=== PATIENT | female | born 1975 | race Caucasian/White ===

== ENCOUNTER 2016-08-29 10:02 | Inpatient (IN) ==
--- NOTE | 2016-08-29 10:46 | Emergency Department Note ---
Disposition Clinical Impression: Pancreatitis Qualifiers: Chronicity: acute Pancreatitis type: unspecified pancreatitis type Acute pancreatitis complication: unspecified Qualified Code(s): K85.90 - Acute pancreatitis without necrosis or infection, unspecified DKA (diabetic ketoacidoses) Qualifiers: Diabetes mellitus type: type 2 Diabetes mellitus complication detail: without coma Qualified Code(s): E13.10 - Other specified diabetes mellitus with ketoacidosis without coma ARF (acute renal failure) Qualifiers: Acute renal failure type: unspecified Qualified Code(s): N17.9 - Acute kidney failure, unspecified Disposition: Admitted As Inpatient Condition: Fair Abdominal Pain HPI - General Chief Complaint: ED Abdominal Pain Stated Complaint: R flank pain Time Seen by Provider: 08/29/16 10:11 Source: patient Mode of arrival: ambulatory Limitations: no limitations Nursing Notes Reviewed: Yes Vital Signs Reviewed: Yes - History of Present Illness Pt Subjective Complaint: abdominal pain, flank pain Location: RUQ, R flank Pain Severity: severe Pain Scale: 10 Quality: sharp Radiation: LUQ Improves with: other (ice) Worsens with: eating Context: recent antibiotic use Associated symptoms: Reports: nausea, vomiting, diarrhea, hematochezia. Denies : fever, constipation, hematemesis, hematuria - Related Data Home Medications Medication Instructions Recorded Confirmed Budesonide/Formoterol 160/4.5 2 puff IH BIDR 08/19/15 08/29/16 [Symbicort 160/4.5] Ergocalciferol (VITAMIN D2) 50,000 unit PO TH 08/19/15 08/29/16 [Drisdol (50,000 Unit)] Fluticasone Propionate Nasal 1 spr NS DAILY 08/19/15 08/29/16 [Flonase] Montelukast [Singulair] 10 mg PO DAILY 08/19/15 08/29/16 Ranitidine HCl [Zantac] 300 mg PO DAILY 08/19/15 08/29/16 diazePAM [Valium] 10 mg PO TID PRN 08/19/15 08/29/16 lamoTRIgine [Lamictal] 200 mg PO HS 08/19/15 08/29/16 Cetirizine HCl [All Day Allergy] 10 mg PO DAILY 12/22/15 08/29/16 Ondansetron HCl [Zofran] 4 mg PO Q8H PRN 12/22/15 08/29/16 Atorvastatin [Lipitor] 10 mg PO HS 08/29/16 08/29/16 Doxepin HCl 100 mg PO HS 08/29/16 08/29/16 Gabapentin [Neurontin] 300 mg PO BID 08/29/16 08/29/16 HYDROcodone/Acet 7.5/325 mg [[place] 1 tab PO Q6H PRN 08/29/16 08/29/16 7.5-325 mg] Ipratropium/Albuterol Neb [Duoneb] 3 ml IH Q6HR PRN 08/29/16 08/29/16 metFORMIN [Glucophage] 500 mg PO BIDWM 08/29/16 08/29/16 Allergies Allergy/AdvReac Type Severity Reaction Status Date / Time morphine Allergy Unknown facial Verified 08/29/16 13:00 swelling, redness Penicillins Allergy Unknown Unknown Verified 08/29/16 13:00 pregabalin [From Lyrica] Allergy Unknown Blindness, Verified 08/29/16 13:00 Difficulty walking trazodone Allergy Unknown Tachycardia Verified 08/29/16 13:00 aspirin AdvReac Unknown nausea and Verified 08/29/16 13:00 vomiting sumatriptan [From Imitrex] AdvReac Unknown Disoriented Verified 08/29/16 13:00 All systems ED: reviewed and negative except as stated. Constitutional: Reports: fever Cardiovascular: Denies: chest pain Respiratory: Reports: wheezes (hx of asthma). 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 Absent: wheezes - Cardiovascular Cardiovascular exam: Present: regular rate, normal rhythm - Abdominal Exam Abdominal exam: Present: tenderness. Absent: distention, ascites Abdominal tenderness: Present: RUQ, LUQ - Rectal Exam Rectal exam: Present: deferred - Extremities Exam Extremities exam: Present: normal inspection. Absent: pedal edema - Back Exam Back exam: Present: CVA tenderness (R). Absent: rashes - Neurological Exam Neurological exam: Present: alert, CN II-XII intact - Psychiatric Psychiatric exam: Present: normal affect - Skin Skin exam: Present: warm, dry, intact, normal color Course Course Narrative: Patient is a 40 y/o female with a pmh of DM, kidney stones, and a Nessin procedure (2009)present to the ER after 3 days of N/V and RUQ/R flank pain that radiates to the LUQ. Labs: CBC, BMP, Hepatic function test, lipase, and UA were drawn. CT of abd without contrast was done and showed very mild stranding by the pancreas that could be related to pancreatitis, duodenitis or underlying liver dysfunction. Liver is enlarged and compatible with hepatic steatosis. Pt given 1mg of Dilaudid as she says she can tolerate it despite having a morphine allergy. Glucose was elevated in the 800s and IV fluid bolus given and Insulin drip initiated. Vital Signs Temperature 98.7 F 08/29/16 10:04 Pulse Rate 74 08/29/16 10:04 Respiratory Rate 16 08/29/16 10:04 Blood Pressure 117/81 08/29/16 10:04 O2 Sat by Pulse Oximetry 97 08/29/16 10:04 Temperature 97.7 F 08/29/16 17:25 Pulse Rate 116 08/29/16 19:19 Respiratory Rate 16 08/29/16 19:00 Blood Pressure 131/96 08/29/16 19:00 O2 Sat by Pulse Oximetry 94 08/29/16 19:00 Oxygen Delivery Oxygen Delivery Nasal Cannula Abdominal Pain - [facility] Narrative Medical decision making narrative: Patient's glucose was 849, given IV fluids and an insulin drip. Will admit for DKA/HHS. Concerning her abdominal pain, patient's CT of abdomen showed very mild stranding near the pancreas and liver enlargement most likely due to hepatic steatosis. Lipase was not suggestive of pancreatitis. US of the gallbladder was ordered to r/o acute cholecystitis. - Differential Diagnosis Differential Diagnosis: Likely: acute appendicitis, calculus of kidney, other ( DKA, HHS) - Medical Records Medical records reviewed: Yes I reviewed the patient's medical records. - Lab Data Lab results reviewed: Yes I reviewed the patient's lab results. Result diagrams: 08/29/16 11:12 08/29/16 11:12 Lab Results 08/29/16 08/29/16 08/29/16 Range/Units 10:17 11:12 11:12 WBC 16.6 H (4.3-11.1) K/mcL RBC 5.18 H (3.82-4.97) M/mcL Hgb 15.7 H (11.5-15.4) g/dL Hct 45.8 H (35.3-44.9) % MCV 88.4 (83.0-100.0) fL MCH 30.3 (28.0-33.3) pg MCHC 34.3 (31.6-35.5) g/dL RDW 13.4 (11.5-14.5) % Plt Count 389 (140-400) K/mcL MPV 10.2 (9.4-12.4) fL Immature Gran % 1.1 (0-4) % Seg Neutrophils % 58.4 % Lymphocytes % 33.3 % Monocytes % 6.5 % Eosinophils % 0.3 % Basophils % 0.4 % Neutrophils # 9.7 H (1.6-8.9) K/mcL Lymphocytes # 5.5 H (0.6-4.6) K/mcL Monocytes # 1.1 (0.0-1.3) K/mcL Eosinophils # 0.1 (0.0-0.6) K/mcL Basophils # 0.1 (0.0-0.2) K/mcL Sodium 136 (136-145) mEq/L Potassium 4.5 (3.5-4.5) mEq/L Chloride 93 L (98-109) mEq/L Carbon Dioxide 23 (19-29) mEq/L BUN 17 (7-20) mg/dL Creatinine 1.68 H (0.57-1.11) mg/dL Est GFR ( Amer) 41 L (> 60) Est GFR (Non-Af Amer) 34 L (> 60) BUN/Creatinine Ratio 10 (6-26) Glucose 849 H* (70-99) mg/dL POC Glucose (58-89) Calculated Osmolality 325 H (280-300) Calcium 10.9 H (8.6-10.8) mg/dL Total Bilirubin 0.5 (0.2-1.2) mg/dL Direct Bilirubin 0.1 (0.0-0.5) mg/dL Indirect Bilirubin 0.4 (0.0-1.2) mg/dL AST 96 H (5-34) Units/L ALT 120 H (0-55) Units/L Alkaline Phosphatase 168 H (38-126) Units/L Serum Total Protein 8.6 H (6.0-8.3) g/dL Albumin 4.2 (3.5-5.0) g/dL Globulin 4.4 H (2.4-3.5) g/dL Albumin/Globulin Ratio 1.0 L (1.1-2.2) Lipase 321 H (8-78) Units/L Beta-Hydroxybutyric Acd (0.02-0.27) mmol/L Urine Color Yellow (Yellow) Urine Clarity Clear (Clear) Urine pH 6.0 (5.0-8.0) pH Units Ur Specific [place] > 1.030 H (1.010-1.025) Urine Protein Negative (Neg-Trace) mg/dL Urine Glucose (UA) >=1000 H (Normal) mg/dL Urine Ketones Trace H (Negative) mg/dL Urine Blood Negative (Negative) Urine Nitrite Negative (Negative) Urine Bilirubin Negative (Negative) Urine Urobilinogen Normal (Normal) mg/dL Ur Leukocyte Esterase Negative (Negative) Ur Culture Indicated? NO (NO) 08/29/16 08/29/16 08/29/16 Range/Units 11:15 12:47 13:17 WBC (4.3-11.1) K/mcL RBC (3.82-4.97) M/mcL Hgb (11.5-15.4) g/dL Hct (35.3-44.9) % MCV (83.0-100.0) fL MCH (28.0-33.3) pg MCHC (31.6-35.5) g/dL RDW (11.5-14.5) % Plt Count (140-400) K/mcL MPV (9.4-12.4) fL Immature Gran % (0-4) % Seg Neutrophils % % Lymphocytes % % Monocytes % % Eosinophils % % Basophils % % Neutrophils # (1.6-8.9) K/mcL Lymphocytes # (0.6-4.6) K/mcL Monocytes # (0.0-1.3) K/mcL Eosinophils # (0.0-0.6) K/mcL Basophils # (0.0-0.2) K/mcL Sodium (136-145) mEq/L Potassium (3.5-4.5) mEq/L Chloride (98-109) mEq/L Carbon Dioxide (19-29) mEq/L BUN (7-20) mg/dL Creatinine (0.57-1.11) mg/dL Est GFR ( Amer) (> 60) Est GFR (Non-Af Amer) (> 60) BUN/Creatinine Ratio (6-26) Glucose (70-99) mg/dL POC Glucose > 600 H* 540 H* (58-89) Calculated Osmolality (280-300) Calcium (8.6-10.8) mg/dL Total Bilirubin (0.2-1.2) mg/dL Direct Bilirubin (0.0-0.5) mg/dL Indirect Bilirubin (0.0-1.2) mg/dL AST (5-34) Units/L ALT (0-55) Units/L Alkaline Phosphatase (38-126) Units/L Serum Total Protein (6.0-8.3) g/dL Albumin (3.5-5.0) g/dL Globulin (2.4-3.5) g/dL Albumin/Globulin Ratio (1.1-2.2) Lipase (8-78) Units/L Beta-Hydroxybutyric Acd > 2.00 H (0.02-0.27) mmol/L Urine Color (Yellow) Urine Clarity (Clear) Urine pH (5.0-8.0) pH Units Ur Specific [place] (1.010-1.025) Urine Protein (Neg-Trace) mg/dL Urine Glucose (UA) (Normal) mg/dL Urine Ketones (Negative) mg/dL Urine Blood (Negative) Urine Nitrite (Negative) Urine Bilirubin (Negative) Urine Urobilinogen (Normal) mg/dL Ur Leukocyte Esterase (Negative) Ur Culture Indicated? (NO) 08/29/16 08/29/16 Range/Units 14:00 16:39 WBC (4.3-11.1) K/mcL RBC (3.82-4.97) M/mcL Hgb (11.5-15.4) g/dL Hct (35.3-44.9) % MCV (83.0-100.0) fL MCH (28.0-33.3) pg MCHC (31.6-35.5) g/dL RDW (11.5-14.5) % Plt Count (140-400) K/mcL MPV (9.4-12.4) fL Immature Gran % (0-4) % Seg Neutrophils % % Lymphocytes % % Monocytes % % Eosinophils % % Basophils % % Neutrophils # (1.6-8.9) K/mcL Lymphocytes # (0.6-4.6) K/mcL Monocytes # (0.0-1.3) K/mcL Eosinophils # (0.0-0.6) K/mcL Basophils # (0.0-0.2) K/mcL Sodium (136-145) mEq/L Potassium (3.5-4.5) mEq/L Chloride (98-109) mEq/L Carbon Dioxide (19-29) mEq/L BUN (7-20) mg/dL Creatinine (0.57-1.11) mg/dL Est GFR ( Amer) (> 60) Est GFR (Non-Af Amer) (> 60) BUN/Creatinine Ratio (6-26) Glucose (70-99) mg/dL POC Glucose 460 H* 491 H* (58-89) Calculated Osmolality (280-300) Calcium (8.6-10.8) mg/dL Total Bilirubin (0.2-1.2) mg/dL Direct Bilirubin (0.0-0.5) mg/dL Indirect Bilirubin (0.0-1.2) mg/dL AST (5-34) Units/L ALT (0-55) Units/L Alkaline Phosphatase (38-126) Units/L Serum Total Protein (6.0-8.3) g/dL Albumin (3.5-5.0) g/dL Globulin (2.4-3.5) g/dL Albumin/Globulin Ratio (1.1-2.2) Lipase (8-78) Units/L Beta-Hydroxybutyric Acd (0.02-0.27) mmol/L Urine Color (Yellow) Urine Clarity (Clear) Urine pH (5.0-8.0) pH Units Ur Specific [place] (1.010-1.025) Urine Protein (Neg-Trace) mg/dL Urine Glucose (UA) (Normal) mg/dL Urine Ketones (Negative) mg/dL Urine Blood (Negative) Urine Nitrite (Negative) Urine Bilirubin (Negative) Urine Urobilinogen (Normal) mg/dL Ur Leukocyte Esterase (Negative) Ur Culture Indicated? (NO) - Radiology Data Radiology results reviewed: Yes I reviewed the patient's radiology results. - EKG Data EKG attestation: Yes I reviewed and interpreted this EKG. Critical Care Time Critical Care Time: Yes Total Critical Care Time: 65 Attestation: The high probability of a clinically significant, sudden or life threatening deterioration of the [cardiovascular] system(s) required my full and direct attention, intervention and personal management. The aggregate critical care time was [] minutes. This time is in addition to time spent performing reported procedures but includes the following: [x] Data Review and interpretation [x] Patient assessment and monitoring of vital signs [x] Documentation [x] Medication orders and management
[2016-08-29 11:06] LABS: Bilirubin,Urine Negative (Negative); Blood,Urine Negative (Negative); Clarity,Urine Clear (Clear); Color,Urine Yellow (Yellow); Glucose,Urine (UA) >=1000 mg/dL (Normal); Ketones,Urine Trace mg/dL (Negative); Leukocyte Esterase,Urine Negative (Negative); Nitrite,Urine Negative (Negative); Protein,Urine Negative (Neg-Trace); Specific Gravity,Urine > 1.030 (1.010-1.025); Urobilinogen,Urine Normal (Normal)
[2016-08-29] MEDS ORDERED: *HR* HYDROmorphone (PF) 1 MG/ML SYRINGE IVP ONE ×3 (11:11→16:30)
[2016-08-29 11:17] LABS: Basophils # 0.1 K/mcL (0.0-0.2); Basophils % 0.4 %; Eosinophils # 0.1 K/mcL (0.0-0.6); Eosinophils % 0.3 %; Hematocrit 45.8 % (35.3-44.9); Hemoglobin 15.7 g/dL (11.5-15.4); Immature Granulocytes % 1.1 % (0-4); Lymphocytes # 5.5 K/mcL (0.6-4.6); Lymphocytes % 33.3 %; Mean Corpuscular HGB Conc 34.3 g/dL (31.6-35.5); Mean Corpuscular Hemoglobin 30.3 pg (28.0-33.3); Mean Corpuscular Volume 88.4 fL (83.0-100.0); Mean Platelet Volume 10.2 fL (9.4-12.4); Monocytes # 1.1 K/mcL (0.0-1.3); Monocytes % 6.5 %; Neutrophils # 9.7 K/mcL (1.6-8.9); Platelet Count 389 K/mcL (140-400); Red Blood Count 5.18 M/mcL (3.82-4.97); Red Cell Distribution Width 13.4 % (11.5-14.5); Segmented Neutrophils % 58.4 %
[2016-08-29 11:39] LABS: Albumin 4.2 g/dL (3.5-5.0); Bilirubin,Direct 0.1 mg/dL (0.0-0.5); Bilirubin,Indirect 0.4 mg/dL (0.0-1.2); Bilirubin,Total 0.5 mg/dL (0.2-1.2); Calcium 10.9 mg/dL (8.6-10.8); Globulin 4.4 g/dL (2.4-3.5); Potassium 4.5 mEq/L (3.5-4.5); Total Protein 8.6 g/dL (6.0-8.3)
[2016-08-29] MEDS: Insulin Human Regular 10 UNIT in 0.9 % Sodium Chloride 10 ML IV ONE ×2 (12:34→18:18)
[2016-08-29] MEDS: 0.9 % Sodium Chloride 1,000 ML IVC ONE ×2 (12:34→18:18)
[2016-08-29] MEDS ORDERED: Ondansetron 4 MG/2 ML VIAL IVP ONE ×2 (14:36→16:30)
[2016-08-29] MEDS ORDERED: *HR* Dextrose 50 % in Water (Syg) 50 ML SYRINGE IVP PRN ×2 (16:23→18:47)
[2016-08-29] MEDS ORDERED: Insulin Human Regular 100 UNIT in 0.9 % Sodium Chloride 100 ML IVC SCH ×2 (16:30→16:49)
[2016-08-29] MEDS ORDERED: 0.9 % Sodium Chloride 1,000 ML IVC ONE (16:30)
[2016-08-29] MEDS ORDERED: 0.9 % Sodium Chloride w KCl 20 MEQ/1,000 ML MLS IVC SCH (16:45)
[2016-08-29] MEDS: 0.9 % Sodium Chloride w KCl 20 MEQ/1,000 ML MLS IVC SCH (17:47)
[2016-08-29] MEDS ORDERED: Naloxone 0.4 MG/ML INJ IVP PRN (18:44)
[2016-08-29] MEDS ORDERED: D5% in 0.45% NACL 1,000 ML IVC PRN (18:47)
[2016-08-29] MEDS ORDERED: Insulin Regular, Human 100 UNIT/ML IV PRN (18:47)
[2016-08-29] MEDS ORDERED: Ondansetron ODT 4 MG TAB.RAPDIS PO PRN (18:52)
[2016-08-29] MEDS ORDERED: diazePAM 5 MG TABLET PO PRN (18:52)
--- NOTE | 2016-08-29 18:58 | Internal Med History&Physical ---
Date of Encounter: 08/29/16 Time of Encounter: 19:00 Assessment and Plan (1) Pancreatitis Current visit: Yes Status: Acute Acute pancreatitis, possibly related to biliary stone, as bile duct enlarged on RUQ US. - Consult GI for assistance - Aggressive IV fluid resuscitation - NPO - IV Pain medications - Follow CMP - Check lipid panel Qualifiers: Chronicity: acute Pancreatitis type: other Acute pancreatitis complication: no infection or necrosis Qualified Code(s): K85.80 - Other acute pancreatitis without necrosis or infection (2) DKA (diabetic ketoacidoses) Current visit: Yes Status: Acute DKA/HHS, HCO3- normal, making HHS more likely. Secondary to steroids and inflammatory state of pancreatitis. - DKA/HHS protocol initiated, will monitor K carefully and replace sparingly as patient with JOSEPHINE and not significantly acidotic on presentation - NPO - Insulin gtt Qualifiers: Diabetes mellitus type: type 2 Diabetes mellitus complication detail: without coma Qualified Code(s): E13.10 - Other specified diabetes mellitus with ketoacidosis without coma (3) JOSEPHINE (acute kidney injury) Current visit: Yes Status: Acute JOSEPHINE with creatinine 1.68 up from baseline of 0.74. Likely prerenal etiology given patient's marked volume depletion on physical exam in setting of acute pancreatitis. - Aggressive IV fluid resuscitation - Monitor creatinine for improvement - Avoid nephrotoxins (4) Elevated transaminase level Current visit: Yes Status: Acute History of DIEGO, transaminases have been elevated in the past but to a lesser degree. Bilirubin normal - Follow CMP in AM to trend LFTs (5) Asthma Current visit: Yes Status: Acute Currently lung exam is normal - Continue home inhaler regimen - PRN duonebs Qualifiers: Asthma severity: unspecified severity Asthma complication type: uncomplicated Qualified Code(s): J45.909 - Unspecified asthma, uncomplicated Internal Medicine - H&P: HPI Chief complaint: Upper abdominal pain, nausea, vomiting Admitted From: Emergency Dept Plans for Post Hospital Care: Home History of present illness: Ms. Conde is a 40 year old female with history of asthma, HLD, recently diagnosed DM2, who presented to the ED this afternoon for complaint of abdominal pain, nausea and vomiting for the past 4 days. She states that she has had sinusitis and bronchitis, being treated with an antibiotic (unsure of which one) and PO steroids for the past 4-5 days. She has been unable to tolerate any PO intake, as she has been vomiting, and has had right upper quadrant pain which radiates across to the left upper quadrant. She has not had pain like this before. She denies chest pain or shortness of breath. She has been coughing up yellowish sputum. She has been having diarrhea. Denies blood in her vomit. States no significant recent blood in her stool, but has intermittently had blood in her stool since she had a Dennis Fundoplication - has had EGDs and colonoscopies which she was told were fine in the past. In the ED today she was found to have BG 850 with anion gap of 20, positive beta hydroxybutarate. CT abdomen/pelvis concerning for stranding along pancreas/ duodenum and lipase elevated at 350. RUQ US with mild dilation of common bile duct, normal bilirubin, elevated transaminases and alk phos. She was started on IV fluids, insulin gtt, and admitted to ICU for further management. Past Med Surg Social Fam HX - Past Medical History Medical history: asthma, GERD, hyperlipidemia Psychiatric history: anxiety, depression - Past Surgical History Surgical History: hysterectomy, orthopedic, other, other (Dennis fundoplication , EGD/colonoscopy 12/2015 without abnormalities) - Social History Smoking Status: Current every day smoker Smokeless Tobacco Status: No Alcohol use: rarely Drug use: none - Family History Mother Age: 57 Living Status: Still Living Father Age: 60 Living Status: Still Living Internal Medicine - H&P: Meds Budesonide/Formoterol 160/4.5 [Symbicort 160/4.5] 2 puff IH BIDR 08/19/15 [ History] Ergocalciferol (VITAMIN D2) [Drisdol (50,000 Unit)] 50,000 unit PO TH 08/19/15 [ History] Fluticasone Propionate Nasal [Flonase] 1 spr NS DAILY 08/19/15 [History] Montelukast [Singulair] 10 mg PO DAILY 08/19/15 [History] Ranitidine HCl [Zantac] 300 mg PO DAILY 08/19/15 [History] diazePAM [Valium] 10 mg PO TID PRN 08/19/15 [History] lamoTRIgine [Lamictal] 200 mg PO HS 08/19/15 [History] Cetirizine HCl [All Day Allergy] 10 mg PO DAILY 12/22/15 [History] Ondansetron HCl [Zofran] 4 mg PO Q8H PRN 12/22/15 [History] Atorvastatin [Lipitor] 10 mg PO HS 08/29/16 [History] Doxepin HCl 100 mg PO HS 08/29/16 [History] Gabapentin [Neurontin] 300 mg PO BID 08/29/16 [History] HYDROcodone/Acet 7.5/325 mg [[place] 7.5-325 mg] 1 tab PO Q6H PRN 08/29/16 [ History] Ipratropium/Albuterol Neb [Duoneb] 3 ml IH Q6HR PRN 08/29/16 [History] metFORMIN [Glucophage] 500 mg PO BIDWM 08/29/16 [History] Allergies morphine Allergy (Unknown, Verified 08/29/16 13:00) facial swelling, redness Penicillins Allergy (Unknown, Verified 08/29/16 13:00) Unknown patient states unknown childhood reaction pregabalin [From Lyrica] Allergy (Unknown, Verified 08/29/16 13:00) Blindness, Difficulty walking trazodone Allergy (Unknown, Verified 08/29/16 13:00) Tachycardia aspirin Adverse Reaction (Unknown, Verified 08/29/16 13:00) nausea and vomiting sumatriptan [From Imitrex] Adverse Reaction (Unknown, Verified 08/29/16 13:00) Disoriented All Systems PM: A 10-system review of systems was performed and is negative for pertinent findings except as documented above in the HPI. - Constitutional Vitals: Temp Pulse Resp BP Pulse Ox 97.7 F 112 16 117/90 94 08/29/16 17:25 08/29/16 18:00 08/29/16 18:00 08/29/16 18:00 08/29/16 18:00 General appearance: Present: A&O X 3, no acute distress - Head Head exam: Present: atraumatic - Eye Eye exam: Present: EOMI, sclera anicteric - ENT ENT exam: Present: mucous membranes dry - Neck Neck exam general surgery: Present: supple - Respiratory Respiratory exam: Present: CTAB - Cardiovascular Cardiovascular exam: Present: tachycardia. Absent: diastolic murmur, gallop, rubs, systolic murmur - GI/Abdominal GI/Abdominal exam: Present: soft Additional comments: Tender right upper quadrant and epigastric area. No rebound or guarding. Bowel sounds normal - Extremities Exam Extremities exam: Absent: pedal edema - Neurological Exam Neurological exam: Present: no focal deficits - Psychiatric Psychiatric exam: Present: normal affect, normal mood - Skin Skin exam: Absent: rash Internal Med - H&P Results - Labs CBC & Chem 7: 08/29/16 11:12 08/29/16 11:12
[2016-08-29] MEDS: 0.9 % Sodium Chloride 1,000 ML IVC SCH ×3 (19:24→23:08)
[2016-08-29] MEDS: lamoTRIgine 100 MG TABLET PO SCH (20:02)
[2016-08-29] MEDS: Gabapentin 300 MG CAPSULE PO SCH (20:02)
[2016-08-29 20:09] LABS: BUN/Creatinine Ratio 14 (6-26); Blood Urea Nitrogen 14 mg/dL (7-20); Calcium 9.5 mg/dL (8.6-10.8); Carbon Dioxide 29 mEq/L (19-29); Glucose 194 mg/dL (70-99); Osmolality,Calculated 318 (280-300); eGFR For African Americans > 60 (> 60); eGFR For Non-African Americans 59 (> 60)
[2016-08-29 20:10] LABS: Chol/HDL Ratio 5.8 (0-4.9); Cholesterol 214 mg/dL (< 200); HDL Cholesterol 37 mg/dL (40-59); Triglycerides 675 mg/dL (< 150)
[2016-08-29 20:31] LABS: Chloride 109 mEq/L (98-109); Potassium 3.2 mEq/L (3.5-4.5); Sodium 151 mEq/L (136-145)
[2016-08-29] MEDS: Insulin Human Regular 100 UNIT in 0.9 % Sodium Chloride 100 ML IVC SCH (20:54)
[2016-08-29] MEDS: *HR* HYDROmorphone (PF) 1 MG/ML SYRINGE IVP PRN (21:45)
[2016-08-29] MEDS ORDERED: Ipratropium/Albuterol Neb 3 ML IH PRN (22:00)
[2016-08-29] MEDS: Budesonide/Formoterol 160/4.5 MDI IH SCH (22:16)
[2016-08-30 00:14] LABS: BUN/Creatinine Ratio 13 (6-26); Blood Urea Nitrogen 12 mg/dL (7-20); Calcium 8.8 mg/dL (8.6-10.8); Carbon Dioxide 31 mEq/L (19-29); Chloride 110 mEq/L (98-109); Glucose 105 mg/dL (70-99); Osmolality,Calculated 308 (280-300); Potassium 3.2 mEq/L (3.5-4.5); Sodium 149 mEq/L (136-145); eGFR For African Americans > 60 (> 60); eGFR For Non-African Americans > 60 (> 60)
[2016-08-30] MEDS: 0.9 % Sodium Chloride w KCl 20 MEQ/1,000 ML MLS IVC SCH ×3 (00:18→08:28)
[2016-08-30] MEDS: D5% in 0.45% NACL w KCl 20 MEQ/1,000 ML MLS IVC PRN ×2 (00:19→04:28)
[2016-08-30] MEDS: 0.9 % Sodium Chloride 1,000 ML IVC SCH ×2 (03:12→05:17)
[2016-08-30] MEDS: Insulin Human Regular 100 UNIT in 0.9 % Sodium Chloride 100 ML IVC SCH (03:13)
[2016-08-30 04:55] LABS: Basophils # 0.1 K/mcL (0.0-0.2); Basophils % 0.4 %; Eosinophils # 0.1 K/mcL (0.0-0.6); Eosinophils % 0.4 %; Hematocrit 43.3 % (35.3-44.9); Immature Granulocytes % 1.1 % (0-4); Lymphocytes # 4.5 K/mcL (0.6-4.6); Lymphocytes % 28.1 %; Mean Corpuscular HGB Conc 31.9 g/dL (31.6-35.5); Mean Corpuscular Hemoglobin 29.6 pg (28.0-33.3); Mean Corpuscular Volume 92.7 fL (83.0-100.0); Mean Platelet Volume 9.5 fL (9.4-12.4); Monocytes % 6.4 %; Neutrophils # 10.3 K/mcL (1.6-8.9); Platelet Count 338 K/mcL (140-400); Red Blood Count 4.67 M/mcL (3.82-4.97); Red Cell Distribution Width 13.8 % (11.5-14.5); Segmented Neutrophils % 63.6 %
[2016-08-30 04:56] LABS: Hemoglobin 13.8 g/dL (11.5-15.4)
[2016-08-30] MEDS: *HR* HYDROmorphone (PF) 1 MG/ML SYRINGE IVP PRN ×2 (05:03→08:35)
[2016-08-30 05:05] LABS: Alanine Aminotransferase 82 Units/L (0-55); Albumin 3.4 g/dL (3.5-5.0); Albumin/Globulin Ratio 0.9 (1.1-2.2); Alkaline Phosphatase 124 Units/L (38-126); BUN/Creatinine Ratio 13 (6-26); Bilirubin,Total 0.2 mg/dL (0.2-1.2); Blood Urea Nitrogen 11 mg/dL (7-20); Calcium 8.4 mg/dL (8.6-10.8); Carbon Dioxide 26 mEq/L (19-29); Chloride 110 mEq/L (98-109); Globulin 3.7 g/dL (2.4-3.5); Glucose 165 mg/dL (70-99); Osmolality,Calculated 307 (280-300); Phosphorous 2.3 mg/dL (2.3-4.7); Potassium 3.7 mEq/L (3.5-4.5); Sodium 147 mEq/L (136-145); Total Protein 7.1 g/dL (6.0-8.3); eGFR For African Americans > 60 (> 60); eGFR For Non-African Americans > 60 (> 60)
[2016-08-30 05:08] LABS: Aspartate Amino Transferase 51 Units/L (5-34); Magnesium 2.1 mg/dL (1.6-2.6)
[2016-08-30] MEDS: Budesonide/Formoterol 160/4.5 MDI IH SCH ×2 (07:51→22:37)
[2016-08-30] MEDS: Gabapentin 300 MG CAPSULE PO SCH ×2 (08:28→19:21)
[2016-08-30] MEDS: Loratadine 10 MG TABLET PO SCH (08:28)
[2016-08-30] MEDS: Famotidine 20 MG TABLET PO SCH (08:29)
[2016-08-30] MEDS ORDERED: D5% in Water 1,000 ML IVC PRN (08:32)
[2016-08-30] MEDS: Fluticasone Propionate Nasal 50 MCG/SPRAY BOTTLE NS SCH (08:32)
[2016-08-30 08:45] LABS: BUN/Creatinine Ratio 12 (6-26); Blood Urea Nitrogen 9 mg/dL (7-20); Calcium 8.1 mg/dL (8.6-10.8); Carbon Dioxide 27 mEq/L (19-29); Chloride 110 mEq/L (98-109); Glucose 151 mg/dL (70-99); Osmolality,Calculated 300 (280-300); Potassium 3.7 mEq/L (3.5-4.5); Sodium 144 mEq/L (136-145); eGFR For African Americans > 60 (> 60); eGFR For Non-African Americans > 60 (> 60)
[2016-08-30] MEDS ORDERED: Insulin DETEMIR 100 UNIT/ML X5UNITS SQ SCH ×2 (09:00→21:00)
[2016-08-30 10:17] LABS: Lipase 905 Units/L (8-78)
[2016-08-30] MEDS: Insulin LISPRO 300 UNITS/3 ML VIAL SQ SCH ×4 (12:00→23:17)
[2016-08-30] MEDS: *HR* Heparin 5,000 UNIT/ML VIAL SQ SCH (17:09)
[2016-08-30] MEDS: *HR* HYDROcodone/Acet 7.5/325 mg TABLET PO PRN (17:17)
--- NOTE | 2016-08-30 17:53 | Internal Med Progress Note ---
Date of Encounter: 08/30/16 Time of Encounter: 09:00 - Assessment and plan (1) Leucocytosis Current Visit: No Status: Chronic Assessment and plan: Patient has tachycardia and leukocytosis. Meet criteria of SIRS. We will empirically add antibiotic for possible intra-abdominal infection. Qualifiers: Leukocytosis type: other Qualified Code(s): D72.828 - Other elevated white blood cell count (2) JOSEPHINE (acute kidney injury) Current Visit: Yes Status: Acute Assessment and plan: Resolved after IV fluid. (3) Pancreatitis Current Visit: Yes Status: Acute Assessment and plan: We will continue nothing by mouth, IV fluid. Follow-up lipase level. - Old US ABDOMINAL LIMIT to rule out gallstone. Bilirubin is within normal limit Qualifiers: Chronicity: acute Pancreatitis type: other Acute pancreatitis complication: no infection or necrosis Qualified Code(s): K85.80 - Other acute pancreatitis without necrosis or infection (4) DKA (diabetic ketoacidoses) Current Visit: Yes Status: Acute Assessment and plan: Resolved. We will continue basal and sliding scale insulin for glucose control. Patient may need long-term insulin use upon discharge Qualifiers: Diabetes mellitus type: type 2 Diabetes mellitus complication detail: without coma Qualified Code(s): E13.10 - Other specified diabetes mellitus with ketoacidosis without coma (5) Elevated transaminase level Current Visit: Yes Status: Acute Assessment and plan: Possibly due to pancreatitis. Improved today. (6) Asthma Current Visit: Yes Status: Acute Assessment and plan: Stable. No wheezing. Qualifiers: Asthma severity: unspecified severity Asthma complication type: uncomplicated Qualified Code(s): J45.909 - Unspecified asthma, uncomplicated (7) DVT prophylaxis Current Visit: Yes Status: Acute Assessment and plan: Heparin subcutaneously - Time Spent With Patient 25 - 35 minutes - Subjective Interval history: Patient is a 40-year-old female admitted for DKA, acute pancreatitis, possible duodenitis. I saw and examined the patient today. Patient is still weak, complaint abdominal pain, no nausea or vomiting today. AG closed, insulin drip has been stopped. However, patient has elevated lipase, elevated WBC, and tachycardia. We will continue nothing by mouth, IV fluid, and antibiotic with Cipro and Flagyl for possible duodenitis. - Constitutional Vitals: Temp Pulse Resp BP Pulse Ox 97.8 F 123 20 121/86 96 08/30/16 16:00 08/30/16 16:00 08/30/16 16:00 08/30/16 16:00 08/30/16 16:00 General appearance: Present: A&O X 3, no acute distress - Head Head exam: Present: atraumatic, normocephalic - Eye Eye exam: Present: PERRL, conjuntiva pink, sclera anicteric Pupils: Present: PERRL - Neck Neck exam general surgery: Present: supple, trachea midline. Absent: lymphadenopathy - Respiratory Respiratory exam: Present: CTAB. Absent: accessory muscle use, rales, rhonchi, wheezes - Cardiovascular Cardiovascular exam: Present: RRR, +S1, +S2. Absent: diastolic murmur, gallop, rubs, systolic murmur - GI/Abdominal GI/Abdominal exam: Present: normal bowel sounds, soft, tenderness (Epigastric area, no rebound or guarding), no peritoneal signs. Absent: distended - Extremities Exam Extremities exam: Present: warm, radial pulses palpable and symetrical. Absent : calf tenderness, cyanotic, pedal edema - Neurological Exam Neurological exam: Present: CN II-XII intact, oriented X3, no focal deficits. Absent: pronater drift, facial droop, speech deficit - Skin Skin exam: Present: dry, intact Internal Medicine: Result - Labs CBC & Chem 7: 08/30/16 04:35 08/30/16 07:49 Labs: Short CBC 08/30/16 Range/Units 04:35 WBC 16.1 H (4.3-11.1) K/mcL Hgb 13.8 D (11.5-15.4) g/dL Hct 43.3 (35.3-44.9) % Plt Count 338 (140-400) K/mcL Neutrophils # 10.3 H (1.6-8.9) K/mcL BMP 08/29/16 08/29/16 08/30/16 19:38 23:52 04:35 Sodium 151 H D 149 H 147 H Potassium 3.2 L D 3.2 L 3.7 Chloride 109 D 110 H 110 H Carbon Dioxide 29 31 H 26 BUN 14 12 11 Creatinine 1.03 0.90 0.88 Glucose 194 H 105 H 165 H Calcium 9.5 8.8 8.4 L 08/30/16 07:49 Sodium 144 Potassium 3.7 Chloride 110 H Carbon Dioxide 27 BUN 9 Creatinine 0.73 Glucose 151 H Calcium 8.1 L Liver Function 08/30/16 Range/Units 04:35 Total Bilirubin 0.2 (0.2-1.2) mg/dL AST 51 H (5-34) Units/L ALT 82 H (0-55) Units/L Alkaline Phosphatase 124 (38-126) Units/L Albumin 3.4 L (3.5-5.0) g/dL - Impressions Impressions Chest X-Ray 08/29/16 18:44 IMPRESSION: No acute process. D/ / Noe Jasso MD / Noe Jasso MD Interpreting Provider: Noe Jasso MD Consult Discharge Plan - Plan Referrals: Kyle Moreno MD [Primary Care Provider] - 09/07/16 3:15 pm
--- NOTE | 2016-08-30 18:07 | Event Note ---
Date of Encounter: 08/30/16 Time of Encounter: 17:00 Pt seen, full consult to follow Patient with acute pancreatitis. Her triglycerides are 675 and her LFTs are mildly elevated. Pancreatitis can be due to gallbladder sludge but also could be due to her to hypertriglyceridemia. Recommendation: Continue IV fluid pain management.
[2016-08-30] MEDS: lamoTRIgine 100 MG TABLET PO SCH (19:22)
[2016-08-30] MEDS ORDERED: Insulin LISPRO 300 UNITS/3 ML VIAL SQ SCH (21:00)
[2016-08-30] MEDS: MetroNIDAZOLE 500 MG/100 ML 500 MG/100 ML BAG IVPB SCH (23:16)
[2016-08-31] MEDS: *HR* HYDROcodone/Acet 7.5/325 mg TABLET PO PRN (04:02)
[2016-08-31] MEDS: *HR* Heparin 5,000 UNIT/ML VIAL SQ SCH ×2 (06:16→17:15)
[2016-08-31] MEDS: Insulin LISPRO 300 UNITS/3 ML VIAL SQ SCH ×4 (06:22→23:22)
[2016-08-31 07:48] LABS: Alanine Aminotransferase 65 Units/L (0-55); Albumin/Globulin Ratio 0.8 (1.1-2.2); Alkaline Phosphatase 129 Units/L (38-126); Aspartate Amino Transferase 82 Units/L (5-34); BUN/Creatinine Ratio 6 (6-26); Bilirubin,Total 0.8 mg/dL (0.2-1.2); Calcium 7.9 mg/dL (8.6-10.8); Carbon Dioxide 23 mEq/L (19-29); Chloride 100 mEq/L (98-109); Globulin 3.5 g/dL (2.4-3.5); Glucose 238 mg/dL (70-99); Lipase 262 Units/L (8-78); Osmolality,Calculated 275 (280-300); Potassium 3.3 mEq/L (3.5-4.5); Total Protein 6.2 g/dL (6.0-8.3); eGFR For African Americans > 60 (> 60); eGFR For Non-African Americans > 60 (> 60)
[2016-08-31 07:59] LABS: Basophils # 0.1 K/mcL (0.0-0.2); Basophils % 0.4 %; Eosinophils # 0.1 K/mcL (0.0-0.6); Eosinophils % 0.9 %; Hematocrit 41.7 % (35.3-44.9); Immature Granulocytes % 0.8 % (0-4); Lymphocytes # 3.4 K/mcL (0.6-4.6); Mean Corpuscular HGB Conc 33.6 g/dL (31.6-35.5); Mean Corpuscular Hemoglobin 30.6 pg (28.0-33.3); Mean Corpuscular Volume 91.2 fL (83.0-100.0); Mean Platelet Volume 9.9 fL (9.4-12.4); Monocytes % 6.6 %; Neutrophils # 10.2 K/mcL (1.6-8.9); Platelet Count 215 K/mcL (140-400); Red Blood Count 4.57 M/mcL (3.82-4.97); Red Cell Distribution Width 13.7 % (11.5-14.5); Segmented Neutrophils % 68.3 %
[2016-08-31 08:00] LABS: Albumin 2.7 g/dL (3.5-5.0); Blood Urea Nitrogen 4 mg/dL (7-20); Sodium 130 mEq/L (136-145)
[2016-08-31] MEDS: MetroNIDAZOLE 500 MG/100 ML 500 MG/100 ML BAG IVPB SCH ×3 (08:05→23:21)
[2016-08-31] MEDS: Fluticasone Propionate Nasal 50 MCG/SPRAY BOTTLE NS SCH (08:05)
[2016-08-31] MEDS: Famotidine 20 MG TABLET PO SCH (08:06)
[2016-08-31] MEDS: Gabapentin 300 MG CAPSULE PO SCH (08:06)
[2016-08-31] MEDS: Loratadine 10 MG TABLET PO SCH (08:06)
[2016-08-31] MEDS: Budesonide/Formoterol 160/4.5 MDI IH SCH ×2 (08:16→22:56)
[2016-08-31] MEDS ORDERED: Potassium Chloride 40 MEQ, Lidocaine 1% 2 ML in D5% in Water 500 ML IVPB ONE (08:40)
--- NOTE | 2016-08-31 09:06 | Gastroenterology Consult Note ---
<Sona Anderson - Last Filed: 08/31/16 11:21> Date of Encounter: 08/31/16 Time of Encounter: 10:30 - Assessment and plan (1) Leucocytosis Current Visit: No Status: Chronic Assessment and plan: Seeing hematology Qualifiers: Leukocytosis type: other Qualified Code(s): D72.828 - Other elevated white blood cell count (2) Pancreatitis Current Visit: Yes Status: Acute Assessment and plan: Supportive care, fluids, bowel rest. BISAP 1. Qualifiers: Chronicity: acute Pancreatitis type: other Acute pancreatitis complication: no infection or necrosis Qualified Code(s): K85.80 - Other acute pancreatitis without necrosis or infection (3) Elevated transaminase level Current Visit: Yes Status: Acute Assessment and plan: Initially trended lower, slight increase in last 24 hours. Continue to monitor. (4) Sepsis Current Visit: Yes Status: Acute Assessment and plan: no apparent source of infection. Pt mentions diarrhea preceding her hospitalization - would order stool w/u if she produces BM Qualifiers: Sepsis type: sepsis due to unspecified organism Qualified Code(s): A41.9 - Sepsis, unspecified organism - Time Spent With Patient Total time spent is greater than 50% in coordination of care (as documented) at patient's floor/unit and/or counseling patient: less than 15 minutes GI History of Present Illness - Data of Consult Patient: known to practice within the last 3 years Consult date: 08/31/16 Requesting Physician: Sim Gibbs MD - Consult Narrative Reason for consult: acute pancreatitis History of present illness: Ms. Conde is a 40 year old female with history of asthma, HLD, recently diagnosed DM2, who presented to the ED yesterday for complaint of abdominal pain , nausea and vomiting for the past 4 days. She states that she has had sinusitis and bronchitis, and was being treated with an antibiotic and PO steroids for the past 4-5 days. She has been unable to tolerate any PO intake, as she has been vomiting, and has had right upper quadrant pain which radiates across to the left upper quadrant. She has not had pain like this before. She denies chest pain or shortness of breath. She has been coughing up yellowish sputum. She has been having diarrhea. Denies blood in her vomit. States no significant recent blood in her stool, but has intermittently had blood in her stool since she had a Dennis Fundoplication - has had EGDs and colonoscopies which she was told were fine in the past. She is known to GI service, last seen in GI clinic by Dr. Connolly 06/23/16. Her last EGD/Colon 12/2015 only showed mild nonspecific chronic colonic inflammation and mild gastritis. She has also been seen by hematology/oncology for chronically elevated WBC. Hx of hepatic steatosis with normal liver w/u. Liver enzymes initially moved slightly lower have now increased slightly overnight. Bilirubin is normal. Lipase is trending lower. Patient was seen at bedside, she is very uncomfortable with increased abdominal pain. N/V at home prior to arrivall, no blood or coffee ground appearance. Patient is tachycardic. Colonoscopy: 12/2015 - [facility] - mild nonspecific chronic inflammation EGD: 12/2015 - [facility] - mild gastritis Past Med Surg Social Fam HX - Past Medical History Medical history: asthma, GERD, hyperlipidemia Psychiatric history: anxiety, depression - Past Surgical History Surgical History: hysterectomy, orthopedic, other, other (Dennis fundoplication , EGD/colonoscopy 12/2015 without abnormalities) - Social History Smoking Status: Current every day smoker Smokeless Tobacco Status: No Alcohol use: rarely Drug use: none - Family History Mother Age: 57 Living Status: Still Living Father Age: 60 Living Status: Still Living - Gastrointestinal NSAID use: None noted Anticoagulation Use: Heparin Number of BM Per Day: daily Gastrointestinal: Present: abdominal pain, nausea, vomiting - Constitutional Constitutional: as per HPI - EENT Eyes: as per HPI Ears: Present: as per HPI Nose, mouth and throat: Present: as per HPI - Cardiovascular Cardiovascular ROS: Present: as per HPI - Respiratory Respiratory IM: Present: dyspnea - Neurological ROS Neurological GI: Present: as per HPI - Hematologic/Lymphatic Hematologic/Lymphatic pediatric: Present: as per HPI - Musculoskeletal Musculoskeletal ROS GI: Present: as per HPI - Integumentary Integumentary GI: Present: as per HPI - Psychiatric ROS Psychiatric GI: Present: as per HPI - Endocrine Endocrine IM: Present: as per HPI - Constitutional Vitals: Temp Pulse Resp BP Pulse Ox 100.1 F H 120 20 124/78 92 08/31/16 08:00 08/31/16 08:00 08/31/16 07:00 08/31/16 07:00 08/31/16 07:00 General appearance: Present: cooperative, disheveled, mild distress, A&O X 3, answers questions appropriately - Head Head exam: Present: atraumatic, normocephalic - Eye Eye exam: Present: normal appearance, sclera anicteric - ENT ENT exam: Present: mucous membranes dry - Neck Neck exam general surgery: Present: normal inspection, trachea midline - Respiratory Respiratory exam: Present: rhonchi, wheezes, tachypnea - Cardiovascular Cardiovascular exam: Present: RRR, +S1, +S2 - GI/Abdominal GI/Abdominal exam: Present: soft, tenderness, no peritoneal signs - Rectal Rectal exam: Present: deferred - Extremities Exam Extremities exam: Present: warm - Neurological Exam Additional comments: lethargic - Psychiatric Psychiatric exam: Present: normal affect, normal mood - Skin Skin exam: Present: dry, intact, normal color, warm Results - Labs CBC & Chem 7: 08/31/16 07:27 08/31/16 07:27 Labs: Last Result Calcium 7.9 mg/dL (8.6-10.8) L 08/31/16 07:27 Triglycerides 675 mg/dL (< 150) H 08/29/16 19:38 Entire Visit Hgb 14.0 g/dL (11.5-15.4) 08/31/16 07:27 Hct 41.7 % (35.3-44.9) 08/31/16 07:27 Total Bilirubin 0.8 mg/dL (0.2-1.2) D 08/31/16 07:27 AST 82 Units/L (5-34) H 08/31/16 07:27 ALT 65 Units/L (0-55) H 08/31/16 07:27 Lipase 262 Units/L (8-78) H 08/31/16 07:27 - Impressions Impressions Abdomen/Pelvis CT 08/30/16 18:11 IMPRESSION: 1. When compared to the previous exam, there is now extensive fat stranding seen within the anterior pararenal space, most likely secondary to acute pancreatitis. No focal fluid collections are identified. 2. There is mural thickening of the 2nd and 3rd portions of the duodenum, which is probably reactive. D/ / Nima Cooley MD / Nima Cooley MD Interpreting Provider: Nima Cooley MD Consult Discharge Plan - Plan Referrals: Kyle Moreno MD [Primary Care Provider] - 09/07/16 3:15 pm <Daysi Connolly - Last Filed: 08/31/16 19:08> Date of Encounter: 08/31/16 Time of Encounter: 18:30 - Time Spent With Patient Total time spent is greater than 50% in coordination of care (as documented) at patient's floor/unit and/or counseling patient: GI History of Present Illness - Data of Consult Requesting Physician: Sim Gibbs MD - Consult Narrative History of present illness: Ms. Conde is a 40 year old female - Constitutional Vitals: Temp Pulse Resp BP Pulse Ox 99.1 F 117 18 124/99 94 08/31/16 16:03 08/31/16 18:00 08/31/16 18:00 08/31/16 18:00 08/31/16 18:00 Results - Labs CBC & Chem 7: 08/31/16 07:27 08/31/16 07:27 Labs: Last Result Calcium 7.9 mg/dL (8.6-10.8) L 08/31/16 07:27 Triglycerides 675 mg/dL (< 150) H 08/29/16 19:38 Entire Visit Hgb 14.0 g/dL (11.5-15.4) 08/31/16 07:27 Hct 41.7 % (35.3-44.9) 08/31/16 07:27 Total Bilirubin 0.8 mg/dL (0.2-1.2) D 08/31/16 07:27 AST 82 Units/L (5-34) H 08/31/16 07:27 ALT 65 Units/L (0-55) H 08/31/16 07:27 Lipase 262 Units/L (8-78) H 08/31/16 07:27 - Impressions Impressions Abdomen/Pelvis CT 08/30/16 18:11 IMPRESSION: 1. When compared to the previous exam, there is now extensive fat stranding seen within the anterior pararenal space, most likely secondary to acute pancreatitis. No focal fluid collections are identified. 2. There is mural thickening of the 2nd and 3rd portions of the duodenum, which is probably reactive. D/ / Nima Cooley MD / Nima Cooley MD Interpreting Provider: Nima Cooley MD Abdomen Ultrasound 08/31/16 08:41 IMPRESSION: Diffuse hepatic steatosis. No definite focal lesion noted. Gallbladder is poorly visualized with probable sludge. Pancreas is nonvisualized. D/ / 08/31/2016 11:51:28 Donnie Irizarry MD / tanvi Interpreting Provider: Donnie Irizarry MD - Attending Attestation I examined this patient and my medical decision-making was reviewed with the Resident Physician. I agree with the documented findings, disposition and treatment plan as described except to the extent set forth below.
[2016-08-31] MEDS: Insulin DETEMIR 100 UNIT/ML X5UNITS SQ SCH (09:28)
[2016-08-31] MEDS ORDERED: 0.9 % Sodium Chloride 1,000 ML ONE (09:35)
[2016-08-31] MEDS ORDERED: 0.9 % Sodium Chloride 1,000 ML IVC SCH ×3 (09:45→11:58)
[2016-08-31] MEDS ORDERED: Sodium Phosphate 30 MMOL in D5% in Water 100 ML IVPB PRN (10:55)
[2016-08-31] MEDS ORDERED: Magnesium Sulfate 2 GM in D5% in Water 100 ML IVPB PRN (10:55)
[2016-08-31] MEDS ORDERED: Ondansetron 4 MG/2 ML VIAL IVP PRN (11:04)
--- NOTE | 2016-08-31 11:05 | Pulmonology Consult Note ---
<Quinn Barahona W - Last Filed: 08/31/16 12:53> Date of Encounter: 08/31/16 Medications and Allergies Budesonide/Formoterol 160/4.5 [Symbicort 160/4.5] 2 puff IH BIDR 08/19/15 [ History] Ergocalciferol (VITAMIN D2) [Drisdol (50,000 Unit)] 50,000 unit PO TH 08/19/15 [ History] Fluticasone Propionate Nasal [Flonase] 1 spr NS DAILY 08/19/15 [History] Montelukast [Singulair] 10 mg PO DAILY 08/19/15 [History] Ranitidine HCl [Zantac] 300 mg PO DAILY 08/19/15 [History] diazePAM [Valium] 10 mg PO TID PRN 08/19/15 [History] lamoTRIgine [Lamictal] 200 mg PO HS 08/19/15 [History] Cetirizine HCl [All Day Allergy] 10 mg PO DAILY 12/22/15 [History] Ondansetron HCl [Zofran] 4 mg PO Q8H PRN 12/22/15 [History] Atorvastatin [Lipitor] 10 mg PO HS 08/29/16 [History] Doxepin HCl 100 mg PO HS 08/29/16 [History] Gabapentin [Neurontin] 300 mg PO BID 08/29/16 [History] HYDROcodone/Acet 7.5/325 mg [[place] 7.5-325 mg] 1 tab PO Q6H PRN 08/29/16 [ History] Ipratropium/Albuterol Neb [Duoneb] 3 ml IH Q6HR PRN 08/29/16 [History] metFORMIN [Glucophage] 500 mg PO BIDWM 08/29/16 [History] Allergies morphine Allergy (Unknown, Verified 08/29/16 13:00) facial swelling, redness Penicillins Allergy (Unknown, Verified 08/29/16 13:00) Unknown patient states unknown childhood reaction pregabalin [From Lyrica] Allergy (Unknown, Verified 08/29/16 13:00) Blindness, Difficulty walking trazodone Allergy (Unknown, Verified 08/29/16 13:00) Tachycardia aspirin Adverse Reaction (Unknown, Verified 08/29/16 13:00) nausea and vomiting sumatriptan [From Imitrex] Adverse Reaction (Unknown, Verified 08/29/16 13:00) Disoriented All Systems: A 10-system review of systems was performed and is negative for pertinent findings except as documented above in the HPI. Physical Examination Vital Signs: Vital Signs, Last 4 Hours Temp Pulse Resp BP Pulse Ox 08/31/16 10:00 118 28 114/70 93 08/31/16 09:00 120 24 91/78 90 08/31/16 08:00 100.1 F H 120 Results - Laboratory Findings CBC and BMP: 08/31/16 07:27 08/31/16 07:27 Abnormal lab findings: Abnormal lab results WBC 15.0 K/mcL (4.3-11.1) H 08/31/16 07:27 Neutrophils # 10.2 K/mcL (1.6-8.9) H 08/31/16 07:27 Sodium 130 mEq/L (136-145) L D 08/31/16 07:27 Potassium 3.3 mEq/L (3.5-4.5) L 08/31/16 07:27 BUN 4 mg/dL (7-20) L 08/31/16 07:27 Glucose 238 mg/dL (70-99) H 08/31/16 07:27 POC Glucose 200 (58-89) H 08/31/16 06:21 Hemoglobin A1c 12.0 % (-5.6) H 08/30/16 04:35 Calculated Osmolality 275 (280-300) L 08/31/16 07:27 Calcium 7.9 mg/dL (8.6-10.8) L 08/31/16 07:27 Ionized Calcium 1.00 mmol/L (1.15-1.35) L 08/31/16 10:29 AST 82 Units/L (5-34) H 08/31/16 07:27 ALT 65 Units/L (0-55) H 08/31/16 07:27 Alkaline Phosphatase 129 Units/L (38-126) H 08/31/16 07:27 Albumin 2.7 g/dL (3.5-5.0) L D 08/31/16 07:27 Albumin/Globulin Ratio 0.8 (1.1-2.2) L 08/31/16 07:27 Triglycerides 675 mg/dL (< 150) H 08/29/16 19:38 Cholesterol 214 mg/dL (< 200) H 08/29/16 19:38 HDL Cholesterol 37 mg/dL (40-59) L 08/29/16 19:38 Cholesterol/HDL Ratio 5.8 (0-4.9) H 08/29/16 19:38 Lipase 262 Units/L (8-78) H 08/31/16 07:27 Beta-Hydroxybutyric Acd > 2.00 mmol/L (0.02-0.27) H 08/29/16 11:15 Ur Specific [place] > 1.030 (1.010-1.025) H 08/29/16 09:05 Urine Glucose (UA) >=1000 mg/dL (Normal) H 08/29/16 09:05 Urine Ketones Trace mg/dL (Negative) H 08/29/16 09:05 - Clinical Findings Intake & Output: Intake & Output 08/30/16 08/31/16 08/31/16 23:59 07:59 15:59 Intake Total 2600 / 2600 300 / 300 1150 / 1150 Output Total 775 / 775 300 / 300 325 / 325 Balance 1825 / 1825 0 / 0 825 / 825 Weight 85.5 kg Consult Discharge Plan - Plan Referrals: Kyle Moreno MD [Primary Care Provider] - 09/07/16 3:15 pm - Attending Attestation I examined this patient and my medical decision-making was reviewed with the Resident Physician. I agree with the documented findings, disposition and treatment plan as described except to the extent set forth below. Patient seen and examined at bedside Labs, radiology, chart personally reviewed. All lines examined without evidence of infection. Management was reviewed during multidisciplinary critical care rounds. Neuropsych: Awake and alert following all commands continue narcotic analgesia restart small dose of benzodiazepines to prevent withdrawal Pulm: Patient has a history of COPD and ongoing tobacco abuse complicated by sinusitis had a recent flare was given steroids currently saturating well on room air Cards: Remains tachycardic this is sinus likely related to underlying inflammatory response she is getting crystalloid resuscitation lactate elevated but it has normalized FEN-GI: Acute mild to moderate pancreatitis without evidence of necrosis or obvious surgical intervention gastroenterology is following this is likely related to triglyceridemia currently undergoing bowel rest I favor advancement of diet I will discuss his case was gastroenterology; replace calcium Renal: No evidence of acute kidney injury urine output remains good continue to follow ID: Patient with sirs secondary to pancreatitis concern for infection cultures pending she has been placed on antimicrobial coverage for intra-abdominal source however I favor de-escalating her stopping antimicrobials in the next 24- 48 hours if cultures negative Heme/Onc: DVT prophylaxis given Endo: Patient presented with DKA likely combination of stress secondary to pancreatitis along with recent prescription for prednisone but she has stopped taking home insulin hemoglobin A1c is greater than 12 she will need diabetic education prior to discharge continue sliding scale insulin at present Integ/MSK: Skin care per routine ICU protocol to prevent skin ulcers CODE: Code discuss case with patient and her partner at bedside <Karo Larson - Last Filed: 08/31/16 17:10> Date of Encounter: 08/31/16 Time of Encounter: 11:05 Assessment and Plan (1) Pancreatitis Current Visit: Yes Status: Acute Female patient has increase in her liver function enzymes as well as pancreatitis. No history of pancreatitis. Denies being a heavy drinker. Does have a new diagnosis of diabetes that she was on metformin 4. States that she has a very poor diet. Was admitted to the hospital for DKA. This is currently found to have SIRS criteria. Elevated lactic acid. White count was also elevated. Patient chronically takes benzos at home. We will continue these at a low dose. We are holding statins due to her elevated liver function. We are pending blood cultures and urine culture. Plan: Iv fluids flagyl, cipro u/s gallbladder Pepcid for GI prophylaxis heparin for DVT prophylaxis Nothing by mouth Holding statins at this time due to increased liver function enzymes Sliding-scale insulin. (2) DKA (diabetic ketoacidoses) Current Visit: Yes Status: Resolved (3) Elevated transaminase level Current Visit: Yes Status: Acute (4) DVT prophylaxis Current Visit: Yes Status: Acute (5) Sepsis Current Visit: Yes Status: Acute History of Present Illness Consult date: 08/31/16 Requesting physician: Sona Anderson History of present illness: Patient admitted to the hospital for DKA. She was subsequently found to have pancreatitis and met SIRS criteria. Her lactic acid was elevated. She was given several liters of fluid. Her DKA is resolved at this time. She states that she was on metformin but was started on prednisone for a URI. This is likely what sent her into DKA. She also states she has a poor diet. She denies history of alcohol use. Patient was initially altered on admission to the hospital. She is alert and oriented 3 at this time. She does complain of some diffuse abdominal pain. She is complaining that her mouth is dry and is requesting by mouth a strips. GI is on board and recommending nothing by mouth status. We will continue this. Patient is on Flagyl and Cipro. We will continue this until white count resolves. We have also ordered cultures today. Past Med Surg Social Fam HX - Past Medical History Medical history: asthma, GERD, hyperlipidemia Psychiatric history: anxiety, depression - Past Surgical History Surgical History: hysterectomy, orthopedic, other, other (Dennis fundoplication , EGD/colonoscopy 12/2015 without abnormalities) - Social History Smoking Status: Current every day smoker Smokeless Tobacco Status: No Alcohol use: rarely Drug use: none - Family History Mother Age: 57 Living Status: Still Living Father Age: 60 Living Status: Still Living All Systems: A 10-system review of systems was performed and is negative for pertinent findings except as documented above in the HPI. - Constitutional Constitutional: no anorexia, no headache(s), no weakness - EENT Nose, mouth and throat: no dizziness, no headache(s) - Cardiovascular Cardiovascular: no chest pain, no dyspnea - Respiratory Respiratory: no cough, no dyspnea - Gastrointestinal Gastrointestinal: abdominal pain, no nausea - Genitourinary Genitourinary: no dysuria - Musculoskeletal Musculoskeletal: no weakness, no arthralgias - Integumentary Integumentary: no rash Physical Examination Vital Signs: Vital Signs, Last 4 Hours Temp Pulse Resp BP Pulse Ox 08/31/16 10:00 118 28 114/70 93 08/31/16 09:00 120 24 91/78 90 08/31/16 08:00 100.1 F H 120 General appearance: no acute distress, alert Eyes: nonicteric ENT: oropharynx moist Neck: supple Effort: normal Inspection: normal Auscultation: bilateral: clear Cardiovascular: regular rate and rhythm Gastrointestinal: normoactive bowel sounds, soft, tender (Diffusely on palpation.), non-distended, other (No organomegaly present.) Integumentary: normal Extremities: no cyanosis, no edema, no clubbing, pink and warm, pulses normal, no ischemia or petechiae Musculoskeletal: no deformities Gait: normal posture normal mental status, non-focal exam mood appropriate, affect normal Results - Laboratory Findings CBC and BMP: 08/31/16 07:27 08/31/16 07:27 Abnormal lab findings: Abnormal lab results WBC 15.0 K/mcL (4.3-11.1) H 08/31/16 07:27 Neutrophils # 10.2 K/mcL (1.6-8.9) H 08/31/16 07:27 Sodium 130 mEq/L (136-145) L D 08/31/16 07:27 Potassium 3.3 mEq/L (3.5-4.5) L 08/31/16 07:27 BUN 4 mg/dL (7-20) L 08/31/16 07:27 Glucose 238 mg/dL (70-99) H 08/31/16 07:27 POC Glucose 200 (58-89) H 08/31/16 06:21 Hemoglobin A1c 12.0 % (-5.6) H 08/30/16 04:35 Calculated Osmolality 275 (280-300) L 08/31/16 07:27 Calcium 7.9 mg/dL (8.6-10.8) L 08/31/16 07:27 Ionized Calcium 1.00 mmol/L (1.15-1.35) L 08/31/16 10:29 AST 82 Units/L (5-34) H 08/31/16 07:27 ALT 65 Units/L (0-55) H 08/31/16 07:27 Alkaline Phosphatase 129 Units/L (38-126) H 08/31/16 07:27 Albumin 2.7 g/dL (3.5-5.0) L D 08/31/16 07:27 Albumin/Globulin Ratio 0.8 (1.1-2.2) L 08/31/16 07:27 Triglycerides 675 mg/dL (< 150) H 08/29/16 19:38 Cholesterol 214 mg/dL (< 200) H 08/29/16 19:38 HDL Cholesterol 37 mg/dL (40-59) L 08/29/16 19:38 Cholesterol/HDL Ratio 5.8 (0-4.9) H 08/29/16 19:38 Lipase 262 Units/L (8-78) H 08/31/16 07:27 Beta-Hydroxybutyric Acd > 2.00 mmol/L (0.02-0.27) H 08/29/16 11:15 Ur Specific [place] > 1.030 (1.010-1.025) H 08/29/16 09:05 Urine Glucose (UA) >=1000 mg/dL (Normal) H 08/29/16 09:05 Urine Ketones Trace mg/dL (Negative) H 08/29/16 09:05 - Clinical Findings Intake & Output: Intake & Output 08/30/16 08/31/16 08/31/16 23:59 07:59 15:59 Intake Total 2600 / 2600 300 / 300 1150 / 1150 Output Total 775 / 775 300 / 300 325 / 325 Balance 1825 / 1825 0 / 0 825 / 825 Weight 85.5 kg
[2016-08-31] MEDS ORDERED: 0.9 % Sodium Chloride 500 ML IVC ONE (11:57)
[2016-08-31] MEDS: *HR* HYDROmorphone (PF) 1 MG/ML SYRINGE IVP PRN ×3 (11:59→22:25)
[2016-08-31] MEDS ORDERED: *HR* HYDROmorphone (PF) 1 MG/ML SYRINGE IVP PRN (13:16)
[2016-08-31] MEDS: Calcium Gluconate 1,000 MG in D5% in Water 100 ML IVPB PRN (14:55)
[2016-08-31] MEDS: Famotidine 20 MG/2 ML VIAL IVP SCH (17:15)
[2016-08-31 22:21] LABS: Ionized Calcium 1.02 mmol/L (1.15-1.35)
[2016-08-31 22:22] LABS: Basophils # 0.1 K/mcL (0.0-0.2); Basophils % 0.4 %; Eosinophils # 0.1 K/mcL (0.0-0.6); Hemoglobin 14.2 g/dL (11.5-15.4); Immature Granulocytes % 1.4 % (0-4); Lymphocytes % 21.8 %; Mean Corpuscular Hemoglobin 29.8 pg (28.0-33.3); Mean Corpuscular Volume 90.1 fL (83.0-100.0); Mean Platelet Volume 9.5 fL (9.4-12.4); Monocytes # 0.8 K/mcL (0.0-1.3); Monocytes % 5.7 %; Neutrophils # 9.7 K/mcL (1.6-8.9); Platelet Count 246 K/mcL (140-400); Red Blood Count 4.77 M/mcL (3.82-4.97); Red Cell Distribution Width 13.4 % (11.5-14.5); Segmented Neutrophils % 69.7 %
[2016-08-31 22:26] LABS: Potassium 3.8 mEq/L (3.5-4.5)
[2016-08-31 22:31] LABS: BUN/Creatinine Ratio 5 (6-26); Calcium 8.5 mg/dL (8.6-10.8); Carbon Dioxide 21 mEq/L (19-29); Chloride 102 mEq/L (98-109); Glucose 170 mg/dL (70-99); Osmolality,Calculated 275 (280-300); Potassium 3.7 mEq/L (3.5-4.5); Sodium 132 mEq/L (136-145); eGFR For African Americans > 60 (> 60); eGFR For Non-African Americans > 60 (> 60)
[2016-08-31 22:32] LABS: Blood Urea Nitrogen 4 mg/dL (7-20)
[2016-08-31] MEDS ORDERED: *HR* LORazepam 2 MG/ML VIAL IVP PRN (23:54)
[2016-09-01] MEDS: *HR* HYDROmorphone (PF) 1 MG/ML SYRINGE IVP PRN ×7 (00:05→23:30)
[2016-09-01] MEDS ORDERED: diazePAM 10 MG/2 ML SYRINGE IVP PRN (02:07)
[2016-09-01 03:12] LABS: Basophils # 0.1 K/mcL (0.0-0.2); Basophils % 0.4 %; Eosinophils # 0.1 K/mcL (0.0-0.6); Eosinophils % 0.5 %; Hematocrit 36.9 % (35.3-44.9); Hemoglobin 12.3 g/dL (11.5-15.4); Immature Granulocytes % 1.6 % (0-4); Immature Platelets 3.8 % (1.1-6.1); Lymphocytes # 3.1 K/mcL (0.6-4.6); Lymphocytes % 20.3 %; Mean Corpuscular HGB Conc 33.3 g/dL (31.6-35.5); Mean Corpuscular Hemoglobin 29.7 pg (28.0-33.3); Mean Corpuscular Volume 89.1 fL (83.0-100.0); Mean Platelet Volume 9.9 fL (9.4-12.4); Monocytes # 1.1 K/mcL (0.0-1.3); Monocytes % 6.9 %; Neutrophils # 10.9 K/mcL (1.6-8.9); Platelet Count 216 K/mcL (140-400); Red Blood Count 4.14 M/mcL (3.82-4.97); Red Cell Distribution Width 13.3 % (11.5-14.5); Segmented Neutrophils % 70.3 %
[2016-09-01 03:16] LABS: BUN/Creatinine Ratio 5 (6-26); Calcium 8.2 mg/dL (8.6-10.8); Carbon Dioxide 24 mEq/L (19-29); Chloride 102 mEq/L (98-109); Glucose 147 mg/dL (70-99); Magnesium 1.4 mg/dL (1.6-2.6); Osmolality,Calculated 275 (280-300); Phosphorous 1.4 mg/dL (2.3-4.7); Potassium 3.6 mEq/L (3.5-4.5); Sodium 133 mEq/L (136-145); eGFR For African Americans > 60 (> 60); eGFR For Non-African Americans > 60 (> 60)
[2016-09-01 03:17] LABS: Ionized Calcium 0.98 mmol/L (1.15-1.35)
[2016-09-01 03:18] LABS: Blood Urea Nitrogen 3 mg/dL (7-20)
[2016-09-01] MEDS: Calcium Gluconate 1,000 MG in D5% in Water 100 ML IVPB PRN (04:20)
[2016-09-01] MEDS: Famotidine 20 MG/2 ML VIAL IVP SCH ×2 (05:17→18:23)
[2016-09-01] MEDS: *HR* Heparin 5,000 UNIT/ML VIAL SQ SCH ×2 (05:17→18:23)
[2016-09-01] MEDS: Insulin LISPRO 300 UNITS/3 ML VIAL SQ SCH ×3 (05:22→18:22)
[2016-09-01] MEDS: Budesonide/Formoterol 160/4.5 MDI IH SCH ×2 (07:49→20:42)
[2016-09-01] MEDS: MetroNIDAZOLE 500 MG/100 ML 500 MG/100 ML BAG IVPB SCH ×3 (08:05→23:30)
[2016-09-01] MEDS: Insulin DETEMIR 100 UNIT/ML X5UNITS SQ SCH (08:06)
[2016-09-01] MEDS ORDERED: Ipratropium/Albuterol Neb 3 ML IH PRN (11:31)
[2016-09-01] MEDS ORDERED: *HR* Dextrose 50 % in Water (Syg) 50 ML SYRINGE IVP PRN (11:31)
[2016-09-01] MEDS ORDERED: Naloxone 0.4 MG/ML INJ IVP PRN (11:31)
[2016-09-01] MEDS ORDERED: D5% in Water 1,000 ML IVC PRN (11:31)
[2016-09-01] MEDS ORDERED: Ondansetron 4 MG/2 ML VIAL IVP PRN (11:31)
[2016-09-01] MEDS ORDERED: Insulin LISPRO 300 UNITS/3 ML VIAL SQ SCH (11:45)
--- NOTE | 2016-09-01 14:03 | Pulmonology Progress Note ---
<Karo Larson - Last Filed: 09/01/16 13:56> Date of Encounter: 09/01/16 Time of Encounter: 07:30 Assessment and Plan (1) Pancreatitis Current Visit: Yes Status: Acute Patient admitted to the hospital for DKA. She was subsequently found to have pancreatitis and met SIRS criteria. Her lactic acid was elevated. She was given several liters of fluid. Her DKA is resolved at this time. She states that she was on metformin but was started on prednisone for a URI. This is likely what sent her into DKA. She also states she has a poor diet. She denies history of alcohol use. Patient was initially altered on admission to the hospital. She is alert and oriented 3 at this time. She has no complaints this morning. We will advance patient to a clear liquid diet today. Patient is on Flagyl and Cipro. We will continue this until white count resolves. We have also ordered cultures that are pending. Plan: Iv fluids flagyl, cipro Pepcid for GI prophylaxis heparin for DVT prophylaxis Clear liquid diet Holding statins at this time due to increased liver function enzymes Sliding-scale insulin. Move from ICU to floor Qualifiers: Chronicity: acute Pancreatitis type: other Acute pancreatitis complication: no infection or necrosis Qualified Code(s): K85.80 - Other acute pancreatitis without necrosis or infection (2) DKA (diabetic ketoacidoses) Current Visit: Yes Status: Resolved Qualifiers: Diabetes mellitus type: type 2 Diabetes mellitus complication detail: without coma Qualified Code(s): E13.10 - Other specified diabetes mellitus with ketoacidosis without coma (3) Elevated transaminase level Current Visit: Yes Status: Acute (4) DVT prophylaxis Current Visit: Yes Status: Acute (5) Sepsis Current Visit: Yes Status: Acute Qualifiers: Sepsis type: sepsis due to unspecified organism Qualified Code(s): A41.9 - Sepsis, unspecified organism Subjective Interval history: No events overnight. Patient has been somewhat agitated this morning however she is redirectable. She is alert to person and place. We will move patient to floor today. We will continue her Cipro Flagyl until cultures are negative. We will also advance her diet today to clears. Patient has no complaints this morning. Objective PUL Vital signs: Last Vital Signs Temp 97.9 F 09/01/16 11:31 Pulse 123 09/01/16 11:31 Resp 18 09/01/16 11:31 BP 131/90 09/01/16 11:31 Pulse Ox 89 09/01/16 11:31 General appearance: no acute distress, alert Eyes: nonicteric ENT: oropharynx moist Neck: supple Effort: normal Auscultation: bilateral: clear Cardiovascular: regular rate and rhythm Gastrointestinal: normoactive bowel sounds, soft, non-tender, non-distended Integumentary: normal Extremities: no cyanosis Musculoskeletal: no deformities Gait: normal posture non-focal exam mood appropriate, affect normal Results - Laboratory Findings CBC and BMP: 09/01/16 03:00 09/01/16 03:00 Abnormal lab findings: Abnormal lab results WBC 15.5 K/mcL (4.3-11.1) H 09/01/16 03:00 Neutrophils # 10.9 K/mcL (1.6-8.9) H 09/01/16 03:00 Sodium 133 mEq/L (136-145) L 09/01/16 03:00 BUN 3 mg/dL (7-20) L 09/01/16 03:00 BUN/Creatinine Ratio 5 (6-26) L 09/01/16 03:00 Glucose 147 mg/dL (70-99) H 09/01/16 03:00 POC Glucose 201 (58-89) H 09/01/16 07:40 Hemoglobin A1c 12.0 % (-5.6) H 08/30/16 04:35 Calculated Osmolality 275 (280-300) L 09/01/16 03:00 Calcium 8.2 mg/dL (8.6-10.8) L 09/01/16 03:00 Ionized Calcium 0.98 mmol/L (1.15-1.35) L 09/01/16 03:00 Phosphorus 1.4 mg/dL (2.3-4.7) L 09/01/16 03:00 Magnesium 1.4 mg/dL (1.6-2.6) L 09/01/16 03:00 AST 82 Units/L (5-34) H 08/31/16 07:27 ALT 65 Units/L (0-55) H 08/31/16 07:27 Alkaline Phosphatase 129 Units/L (38-126) H 08/31/16 07:27 Albumin 2.7 g/dL (3.5-5.0) L D 08/31/16 07:27 Albumin/Globulin Ratio 0.8 (1.1-2.2) L 08/31/16 07:27 Triglycerides 675 mg/dL (< 150) H 08/29/16 19:38 Cholesterol 214 mg/dL (< 200) H 08/29/16 19:38 HDL Cholesterol 37 mg/dL (40-59) L 08/29/16 19:38 Cholesterol/HDL Ratio 5.8 (0-4.9) H 08/29/16 19:38 Lipase 262 Units/L (8-78) H 08/31/16 07:27 Beta-Hydroxybutyric Acd > 2.00 mmol/L (0.02-0.27) H 08/29/16 11:15 Ur Specific [place] > 1.030 (1.010-1.025) H 08/29/16 09:05 Urine Glucose (UA) >=1000 mg/dL (Normal) H 08/29/16 09:05 Urine Ketones Trace mg/dL (Negative) H 08/29/16 09:05 - Microbiology Findings Microbiology Findings: Microbiology, Last 48 Hours 08/31/16 11:01 Urine Culture - Final Urine,Catheterized No growth. - Clinical Findings Intake & Output: Intake & Output 08/31/16 09/01/16 09/01/16 23:59 07:59 15:59 Intake Total 910 / 910 604 / 604 100 / 100 Output Total 1200 / 1200 850 / 850 575 / 575 Balance -290 / -290 -246 / -246 -475 / -475 Weight 90.2 kg 87.6 kg Consult Discharge Plan - Plan Referrals: Kyle Moreno MD [Primary Care Provider] - 09/07/16 3:15 pm <Quinn Barahona W - Last Filed: 09/01/16 14:19> Date of Encounter: 09/01/16 Objective PUL Vital signs: Last Vital Signs Temp 97.9 F 09/01/16 11:31 Pulse 123 09/01/16 11:31 Resp 18 09/01/16 11:31 BP 131/90 09/01/16 11:31 Pulse Ox 89 09/01/16 11:31 Results - Laboratory Findings CBC and BMP: 09/01/16 03:00 09/01/16 03:00 Abnormal lab findings: Abnormal lab results WBC 15.5 K/mcL (4.3-11.1) H 09/01/16 03:00 Neutrophils # 10.9 K/mcL (1.6-8.9) H 09/01/16 03:00 Sodium 133 mEq/L (136-145) L 09/01/16 03:00 BUN 3 mg/dL (7-20) L 09/01/16 03:00 BUN/Creatinine Ratio 5 (6-26) L 09/01/16 03:00 Glucose 147 mg/dL (70-99) H 09/01/16 03:00 POC Glucose 201 (58-89) H 09/01/16 07:40 Hemoglobin A1c 12.0 % (-5.6) H 08/30/16 04:35 Calculated Osmolality 275 (280-300) L 09/01/16 03:00 Calcium 8.2 mg/dL (8.6-10.8) L 09/01/16 03:00 Ionized Calcium 0.98 mmol/L (1.15-1.35) L 09/01/16 03:00 Phosphorus 1.4 mg/dL (2.3-4.7) L 09/01/16 03:00 Magnesium 1.4 mg/dL (1.6-2.6) L 09/01/16 03:00 AST 82 Units/L (5-34) H 08/31/16 07:27 ALT 65 Units/L (0-55) H 08/31/16 07:27 Alkaline Phosphatase 129 Units/L (38-126) H 08/31/16 07:27 Albumin 2.7 g/dL (3.5-5.0) L D 08/31/16 07:27 Albumin/Globulin Ratio 0.8 (1.1-2.2) L 08/31/16 07:27 Triglycerides 675 mg/dL (< 150) H 08/29/16 19:38 Cholesterol 214 mg/dL (< 200) H 08/29/16 19:38 HDL Cholesterol 37 mg/dL (40-59) L 08/29/16 19:38 Cholesterol/HDL Ratio 5.8 (0-4.9) H 08/29/16 19:38 Lipase 262 Units/L (8-78) H 08/31/16 07:27 Beta-Hydroxybutyric Acd > 2.00 mmol/L (0.02-0.27) H 08/29/16 11:15 Ur Specific [place] > 1.030 (1.010-1.025) H 08/29/16 09:05 Urine Glucose (UA) >=1000 mg/dL (Normal) H 08/29/16 09:05 Urine Ketones Trace mg/dL (Negative) H 08/29/16 09:05 - Microbiology Findings Microbiology Findings: Microbiology, Last 48 Hours 08/31/16 11:01 Urine Culture - Final Urine,Catheterized No growth. - Clinical Findings Intake & Output: Intake & Output 08/31/16 09/01/16 09/01/16 23:59 07:59 15:59 Intake Total 910 / 910 604 / 604 100 / 100 Output Total 1200 / 1200 850 / 850 575 / 575 Balance -290 / -290 -246 / -246 -475 / -475 Weight 90.2 kg 87.6 kg - Attending Attestation I examined this patient and my medical decision-making was reviewed with the Resident Physician. I agree with the documented findings, disposition and treatment plan as described except to the extent set forth below. Patient seen and examined at bedside Labs, radiology, chart personally reviewed. All lines examined without evidence of infection. Management was reviewed during multidisciplinary critical care rounds. 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 We have provided the patient with a bedside sitter to prevent disruption of care focus on religion of sleep-wake cycle she may need small doses of benzodiazepine for withdrawal and because of chronic use Pulm: History of underlying obstructive lung disease asthma phenotype acceptable oxygen saturation on room air Cards: Remains tachycardic which is secondary to anxiety and less likely pain she has been volume resuscitated for distributive inflammatory process secondary to pancreatitis FEN-GI: Gastroenterology following this patient for acute pancreatitis we will advance diet today unless GI feels it is truly contraindicated; pain from pancreatitis is improving Renal: Good urine output continued to monitor ID: She is receiving antimicrobials for intra-abdominal infection cultures pending if negative would would stop in next 24 hours Heme/Onc: DVT prophylaxis given Endo: Presented with DKA no sugars well controlled continue basal bolus insulin dosing Integ/MSK: Skin care per routine to prevent ulcers CODE: Full code Edilberto for transferred to medical telemetry for ongoing care
[2016-09-01] MEDS: diazePAM 10 MG/2 ML SYRINGE IVP PRN (15:08)
[2016-09-02] MEDS: Insulin LISPRO 300 UNITS/3 ML VIAL SQ SCH ×3 (00:23→12:29)
[2016-09-02] MEDS: diazePAM 10 MG/2 ML SYRINGE IVP PRN ×2 (00:25→10:14)
[2016-09-02] MEDS: *HR* HYDROmorphone (PF) 1 MG/ML SYRINGE IVP PRN ×5 (02:32→11:55)
[2016-09-02 02:45] VITALS: BP 110/79
[2016-09-02] MEDS: Famotidine 20 MG/2 ML VIAL IVP SCH (05:46)
[2016-09-02] MEDS: *HR* Heparin 5,000 UNIT/ML VIAL SQ SCH (05:46)
[2016-09-02] MEDS ORDERED: 0.9 % Sodium Chloride 1,000 ML IVC SCH (08:00)
[2016-09-02 08:27] LABS: Basophils # 0.1 K/mcL (0.0-0.2); Basophils % 0.3 %; Eosinophils # 0.2 K/mcL (0.0-0.6); Eosinophils % 1.4 %; Hematocrit 36.1 % (35.3-44.9); Hemoglobin 12.1 g/dL (11.5-15.4); Immature Granulocytes % 1.8 % (0-4); Lymphocytes # 2.6 K/mcL (0.6-4.6); Lymphocytes % 17.8 %; Mean Corpuscular HGB Conc 33.5 g/dL (31.6-35.5); Mean Corpuscular Hemoglobin 29.8 pg (28.0-33.3); Mean Corpuscular Volume 88.9 fL (83.0-100.0); Mean Platelet Volume 9.9 fL (9.4-12.4); Monocytes # 1.5 K/mcL (0.0-1.3); Monocytes % 9.8 %; Neutrophils # 10.2 K/mcL (1.6-8.9); Platelet Count 271 K/mcL (140-400); Red Blood Count 4.06 M/mcL (3.82-4.97); Red Cell Distribution Width 13.3 % (11.5-14.5); Segmented Neutrophils % 68.9 %
[2016-09-02] MEDS: Budesonide/Formoterol 160/4.5 MDI IH SCH (08:29)
[2016-09-02 08:39] LABS: Alanine Aminotransferase 61 Units/L (0-55); Albumin 2.7 g/dL (3.5-5.0); Albumin/Globulin Ratio 0.6 (1.1-2.2); Alkaline Phosphatase 161 Units/L (38-126); Aspartate Amino Transferase 38 Units/L (5-34); BUN/Creatinine Ratio 5 (6-26); Bilirubin,Total 0.7 mg/dL (0.2-1.2); Calcium 8.8 mg/dL (8.6-10.8); Carbon Dioxide 21 mEq/L (19-29); Chloride 96 mEq/L (98-109); Globulin 4.2 g/dL (2.4-3.5); Glucose 158 mg/dL (70-99); Lipase 95 Units/L (8-78); Magnesium 1.7 mg/dL (1.6-2.6); Osmolality,Calculated 268 (280-300); Potassium 3.6 mEq/L (3.5-4.5); Sodium 129 mEq/L (136-145); Total Protein 6.9 g/dL (6.0-8.3); eGFR For African Americans > 60 (> 60); eGFR For Non-African Americans > 60 (> 60)
[2016-09-02 08:40] LABS: Blood Urea Nitrogen 3 mg/dL (7-20)
[2016-09-02] MEDS ORDERED: Insulin DETEMIR 100 UNIT/ML X5UNITS SQ SCH (09:00)
[2016-09-02] MEDS: MetroNIDAZOLE 500 MG/100 ML 500 MG/100 ML BAG IVPB SCH (09:13)
--- NOTE | 2016-09-02 11:33 | Discharge Summary ---
Date of Encounter: 09/02/16 Time of Encounter: 10:00 - Discharge Diagnosis (1) Leucocytosis Priority: Primary Status: Chronic Comments: Pt has hx of chronic leukocytosis Qualifiers: Leukocytosis type: other Qualified Code(s): D72.828 - Other elevated white blood cell count (2) JOSEPHINE (acute kidney injury) Priority: Primary Status: Acute Comments: Improved after hydration. Cr 0.63 today. (3) Pancreatitis Priority: Primary Status: Acute Comments: Etiology is undetermined. Pt has hypertriglyceridemia. US abd done, however gall bladder is not well visualized, bilirubin WNL. Qualifiers: Chronicity: acute Pancreatitis type: other Acute pancreatitis complication: no infection or necrosis Qualified Code(s): K85.80 - Other acute pancreatitis without necrosis or infection (4) DKA (diabetic ketoacidoses) Priority: Primary Status: Resolved Comments: Resolved. Qualifiers: Diabetes mellitus type: type 2 Diabetes mellitus complication detail: without coma Qualified Code(s): E13.10 - Other specified diabetes mellitus with ketoacidosis without coma (5) Elevated transaminase level Priority: Primary Status: Acute (6) Asthma Priority: Secondary Status: Acute Qualifiers: Asthma severity: unspecified severity Asthma complication type: uncomplicated Qualified Code(s): J45.909 - Unspecified asthma, uncomplicated (7) DVT prophylaxis Priority: Secondary Status: Acute (8) Acute encephalopathy Priority: Primary Status: Acute Comments: Pt is disoriented today. Etiology undetermined. Pt was on depression medication at home with doxepin 10mg po HS PRN and lamotrigine 200mg po HS PRN, which is on hold since hospitalization b/o NPO. Sodium 129. Will check ABG, TSH, ammonia , and random cortisol STAT. Will give ativan 2 mg iv once for her anxiety. - Discharge Medications Home Medications: Budesonide/Formoterol 160/4.5 [Symbicort 160/4.5] 2 puff IH BIDR 08/19/15 [ History] Ergocalciferol (VITAMIN D2) [Drisdol (50,000 Unit)] 50,000 unit PO TH 08/19/15 [ History] Fluticasone Propionate Nasal [Flonase] 1 spr NS DAILY 08/19/15 [History] Montelukast [Singulair] 10 mg PO DAILY 08/19/15 [History] Ranitidine HCl [Zantac] 300 mg PO DAILY 08/19/15 [History] diazePAM [Valium] 10 mg PO TID PRN 08/19/15 [History] lamoTRIgine [Lamictal] 200 mg PO HS 08/19/15 [History] Cetirizine HCl [All Day Allergy] 10 mg PO DAILY 12/22/15 [History] Ondansetron HCl [Zofran] 4 mg PO Q8H PRN 12/22/15 [History] Atorvastatin [Lipitor] 10 mg PO HS 08/29/16 [History] Doxepin HCl 100 mg PO HS 08/29/16 [History] Gabapentin [Neurontin] 300 mg PO BID 08/29/16 [History] HYDROcodone/Acet 7.5/325 mg [[place] 7.5-325 mg] 1 tab PO Q6H PRN 08/29/16 [ History] Ipratropium/Albuterol Neb [Duoneb] 3 ml IH Q6HR PRN 08/29/16 [History] metFORMIN [Glucophage] 500 mg PO BIDWM 08/29/16 [History] Allergies/Adverse Reactions: Allergies morphine Allergy (Unknown, Verified 08/29/16 13:00) facial swelling, redness Penicillins Allergy (Unknown, Verified 08/29/16 13:00) Unknown patient states unknown childhood reaction pregabalin [From Lyrica] Allergy (Unknown, Verified 08/29/16 13:00) Blindness, Difficulty walking trazodone Allergy (Unknown, Verified 08/29/16 13:00) Tachycardia aspirin Adverse Reaction (Unknown, Verified 08/29/16 13:00) nausea and vomiting sumatriptan [From Imitrex] Adverse Reaction (Unknown, Verified 08/29/16 13:00) Disoriented Procedures/tests Complete & Pending: Procedures Performed prior 72 hours Category Date Time Status CT abd pelvis wo no iv no oral [CT] Stat Cat Scan 08/30/16 18:11 Completed US abdomen limited [US] Routine Exams 08/31/16 08:41 Completed Date of admission: 08/29/16 17:01 Primary care physician: Kyle Moreno MD Consults: 08/29/16 20:01 Consult to Gastroenterology [CONS] Routine Consulting Provider: Gastroenterology Jennifer Reason for Consult: pacreatitis, DIEOG, concern for biliary stone (CBD dilation on RUQ US) Call Completed: Yes Discharging clinician: Sim Gibbs Anticipated date of discharge: 09/02/16 - Patient Status Disposition: Transfer Other Condition: Critical Functional capacity at discharge: bed bound Overall status at discharge: patient is not back to baseline - Discharge Instructions Follow Up With: Kyle Moreno MD [Primary Care Provider] - 09/07/16 3:15 pm - Diet and Activity Activity: other (Bedrest) Diet: other (Nothing by mouth) Interval History: HPI: Ms. Conde is a 40 year old female with history of asthma, HLD, recently diagnosed DM2, who presented to the ED this afternoon for complaint of abdominal pain, nausea and vomiting for the past 4 days. She states that she has had sinusitis and bronchitis, being treated with an antibiotic (unsure of which one) and PO steroids for the past 4-5 days. She has been unable to tolerate any PO intake, as she has been vomiting, and has had right upper quadrant pain which radiates across to the left upper quadrant. She has not had pain like this before. She denies chest pain or shortness of breath. She has been coughing up yellowish sputum. She has been having diarrhea. Denies blood in her vomit. States no significant recent blood in her stool, but has intermittently had blood in her stool since she had a Dennis Fundoplication - has had EGDs and colonoscopies which she was told were fine in the past. In the ED today she was found to have BG 850 with anion gap of 20, positive beta hydroxybutarate. CT abdomen/pelvis concerning for stranding along pancreas/ duodenum and lipase elevated at 350. RUQ US with mild dilation of common bile duct, normal bilirubin, elevated transaminases and alk phos. She was started on IV fluids, insulin gtt, and admitted to ICU for further management. Hospital course: Ms. Conde is a 40 year old female admitted as DKA and acute pancreatitis. Patient was treated with IV fluid, insulin drip, nothing by mouth, pain medication. After treatment for her DKA has improved with anion gap closed ang Glu level down to 100-200 level. However, her abdominal pain persist although Lipase get down significantly, from admission: 321/905/262/95. Patient also developed acute mental status change with disorientation. CT scan shows acute pancreatitis with reactive duodenitis. Patient has a tachycardia which is unresolved although high level hydration and antibiotic use. GI and critical care consult has been called in our hospital. Patient may benifit from transfer to high level facility for further diagnostic work and treatment. I have discussed that with patient and the family, they agreed to transfer to [facility] for further management. I called [facility] transfer center, discussed with Dr Mccarthy, and patient was accepted for transfer. Patient was seen and examined today by me. She looks anxious, disoriented, said she is in hotel. No fever. Tachycardia with heart rate 126, sinus rhythm. BP 110/79, oxygen saturation 92% in room air. Will check TSH, ammonia , random cortisol, and ABG for acute mental status change. We will continue hydration, close monitoring, and the pain medication prior to transfer pt. - Time Spent with Patient Total time spent providing and/or coordinating discharge services: 40 min Greater than 30 minutes - Constitutional Vitals: Temp Pulse Resp BP Pulse Ox 97.7 F 126 20 110/79 92 09/02/16 02:38 09/02/16 02:38 09/02/16 02:38 09/02/16 02:38 09/02/16 02:38 General appearance: Present: A&O X 1, mild distress, A&O X 3, answers questions appropriately - Head Head exam: Present: atraumatic, normocephalic - Eye Eye exam: Present: PERRL, conjuntiva pink, sclera anicteric Pupils: Present: PERRL - Neck Neck exam general surgery: Present: supple, trachea midline. Absent: lymphadenopathy - Respiratory Respiratory exam: Present: CTAB. Absent: accessory muscle use, rales, rhonchi, wheezes - Cardiovascular Cardiovascular exam: Present: RRR, +S1, +S2. Absent: diastolic murmur, gallop, rubs, systolic murmur - GI/Abdominal GI/Abdominal exam: Present: normal bowel sounds, soft, tenderness (LUQ and RUQ tenderness with rebound and guarding), no peritoneal signs. Absent: distended - Extremities Exam Extremities exam: Present: warm, radial pulses palpable and symetrical. Absent : calf tenderness, cyanotic, pedal edema - Neurological Exam Neurological exam: Present: CN II-XII intact, oriented X3, no focal deficits. Absent: pronater drift, facial droop, speech deficit - Skin Skin exam: Present: dry, intact - VTE Documentation of Mechanical Device: Intermittent pneumatic compression device
[2016-09-02] MEDS ORDERED: *HR* LORazepam 2 MG/ML VIAL IVP ONE (11:48)
[2016-09-02] MEDS ORDERED: *HR* LORazepam 2 MG/ML VIAL ONE (11:53)
[2016-09-02 13:12] LABS: ABG HCO3 20.8 mEQ/L (21-27); ABG Oxygen Saturation 88 % (95-98); ABG PCO2 36 mmHg (35-45); ABG PH 7.37 pH Units (7.32-7.45); ABG PO2 56 mmHg (85-104); ABG TCO2 21.9 mEq/L (20-26); Blood Gas FiO2 21 %
[2016-09-02 13:13] LABS: Thyroid Stimulating Hormone 1.829 mcIU/mL (0.350-4.840)
== END 2016-09-02 14:45 | disposition other institution (70) | DRG 720 ==
LOC: EMEROO 10:02 → ICNU 17:01 → SUATTDRO 17:01 → ICNU 17:17 → 2NENU 09-01 11:34
PROVIDERS: ADMIT Internal Medicine; ATTEND Internal Medicine

== ENCOUNTER 2016-12-23 13:38 | Observation (INO) ==
--- NOTE | 2016-12-23 13:50 | Emergency Department Note ---
Disposition Clinical Impression: Right sided weakness, Frequent falls, Ataxia Disposition: Admitted As Inpatient Condition: Good General Adult HPI - General Chief complaint: ED Neuro Symptoms/Deficit Stated complaint: neuro symptoms 2-3 months Time Seen by Provider: 12/23/16 13:43 Source: patient Limitations: no limitations Nursing Notes Reviewed: Yes Vital Signs Reviewed: Yes - History of Present Illness Pain Scale: 10 - Related Data Home Medications Medication Instructions Recorded Confirmed Budesonide/Formoterol 160/4.5 2 puff IH BIDR 08/19/15 12/23/16 [Symbicort 160/4.5] Ergocalciferol (VITAMIN D2) 50,000 unit PO TH 08/19/15 12/23/16 [Drisdol (50,000 Unit)] Fluticasone Propionate Nasal 50 mcg NS DAILY 08/19/15 12/23/16 [Flonase] Montelukast [Singulair] 10 mg PO HS 08/19/15 12/23/16 Ranitidine HCl [Zantac] 300 mg PO DAILY 08/19/15 12/23/16 diazePAM [Valium] 10 mg PO QAM 08/19/15 12/23/16 lamoTRIgine [Lamictal] 200 mg PO HS 08/19/15 12/23/16 Cetirizine HCl [All Day Allergy] 10 mg PO DAILY 12/22/15 12/23/16 Atorvastatin [Lipitor] 10 mg PO HS 08/29/16 12/23/16 Doxepin HCl 100 mg PO HS 08/29/16 12/23/16 HYDROcodone/Acet 7.5/325 mg [[place] 1 tab PO BID PRN 08/29/16 12/23/16 7.5-325 mg] Ipratropium/Albuterol Neb [Duoneb] 3 ml IH Q6HR PRN 08/29/16 12/23/16 Fluticasone/Vilanterol [Breo 1 each IH DAILY 12/23/16 12/23/16 Ellipta 100-25 Mcg INH] Gabapentin [Neurontin] 600 mg PO QID 12/23/16 12/23/16 Insulin Glargine,Hum.rec.anlog 36 unit SQ HS 12/23/16 12/23/16 [Basaglar Kwikpen U-100] Insulin LISPRO [Humalog Kwikpen 0 unit SQ TIDWM 12/23/16 12/23/16 U-100] Levalbuterol Tartrate [Xopenex Hfa] 2 puff IH Q4H PRN 12/23/16 12/23/16 Metformin HCl [Glucophage] 1,000 mg PO BID 12/23/16 12/23/16 Ondansetron [Zofran] 8 mg PO Q8H PRN 12/23/16 12/23/16 Sertraline [Zoloft] 50 mg PO DAILY 12/23/16 12/23/16 diazePAM [Valium] 20 mg PO HS 12/23/16 12/23/16 Previous Rx's Medication Instructions Recorded HydrOXYzine Pamoate [Vistaril] 50 mg PO BID PRN #30 capsule 12/14/16 Orphenadrine [Norflex] 100 mg PO Q12HR PRN #14 tablet.er 12/19/16 Allergies Allergy/AdvReac Type Severity Reaction Status Date / Time morphine Allergy Unknown facial Verified 12/23/16 13:59 swelling, redness Penicillins Allergy Unknown Unknown Verified 12/23/16 13:59 pregabalin [From Lyrica] Allergy Unknown Blindness, Verified 12/23/16 13:59 Difficulty walking trazodone Allergy Unknown Tachycardia Verified 12/23/16 13:59 aspirin AdvReac Unknown nausea and Verified 12/23/16 13:59 vomiting sumatriptan [From Imitrex] AdvReac Unknown Disoriented Verified 12/23/16 13:59 Past Medical History - Past Medical History Medical history: Reports: asthma, diabetes, GERD, hyperlipidemia Surgical history: Reports: hysterectomy, orthopedic, other, other (Dennis fundoplication, EGD/colonoscopy 12/2015 without abnormalities) Psychiatric history: Reports: anxiety, depression HOUSEPERSON history: Reports: no HOUSEPERSON history - Social History Smoking Status: Current every day smoker Smokeless Tobacco Status: No Alcohol use: Reports: rarely Drug use: Reports: none Physical Exam - General Limitations: no limitations General appearance: alert, in no apparent distress Course Vital Signs Temperature 97.6 F 12/23/16 13:39 Pulse Rate 98 12/23/16 13:39 Respiratory Rate 18 12/23/16 13:39 Blood Pressure 110/75 12/23/16 13:39 O2 Sat by Pulse Oximetry 96 12/23/16 13:39 Temperature 97.6 F 12/23/16 13:39 Pulse Rate 84 12/23/16 15:30 Respiratory Rate 20 12/23/16 16:06 Blood Pressure 105/78 12/23/16 16:06 O2 Sat by Pulse Oximetry 96 12/23/16 15:30 Oxygen Delivery Oxygen Delivery Room Air Medical Decision Making - MDM Narrative Medical decision making narrative: I examined this patient and my medical decision-making was reviewed with the Resident Physician. I agree with the documented findings, disposition and treatment plan as described except to the extent set forth below. Patient seen and evaluated by Dr. Andrea and myself, clarisa valuation management plan, I supervised the care of the patient's stay. We received a call from her neurologist, Dr. Mulligan, he said to go and bring her into the hospital and better because she has been having episodes for 7 fall and possible right-sided pain and weakness. She has a rather flat affect here. She does have some subjective weakness but she is able to get up and move herself up onto the bed and the bed upright. We are going to do lab work CT and then reassess and then most likely admission with neurology counseling. 1351 hrs.: Patient EKG performed shows a sinus rhythm, rate is 96, QRS is 94, QTC is 391, does have an incomplete right bundle branch block does have Q waves in inferior leads and leads 3 and aVF none in lead to compare this with EKG she had done just a few months ago with no changes except for rate. 1450 hrs. Patient's labs are back with good. CT shows nothing acute. Regarding on bring her into the hospital per neurology and hospitalist. Head CT 12/23/16 13:48 IMPRESSION: Stable appearance of the brain with no acute intracranial abnormality. D/ / Brendon Greer MD / Brendon Greer MD Interpreting Provider: Brendon Greer MD - Lab Data Result diagrams: 12/23/16 13:58 12/23/16 13:58 Lab Results 12/23/16 12/23/16 12/23/16 Range/Units 13:58 13:58 13:58 WBC 22.2 H (4.3-11.1) K/mcL RBC 4.64 (3.82-4.97) M/mcL Hgb 13.4 (11.5-15.4) g/dL Hct 41.0 (35.3-44.9) % MCV 88.4 (83.0-100.0) fL MCH 28.9 (28.0-33.3) pg MCHC 32.7 (31.6-35.5) g/dL RDW 13.9 (11.5-14.5) % Plt Count 394 (140-400) K/mcL MPV 8.5 L (9.4-12.4) fL Immature Gran % 1.5 (0-4) % Seg Neutrophils % 64.8 % Lymphocytes % 26.1 % Monocytes % 6.3 % Eosinophils % 0.7 % Basophils % 0.6 % Neutrophils # 14.4 H (1.6-8.9) K/mcL Lymphocytes # 5.8 H (0.6-4.6) K/mcL Monocytes # 1.4 H (0.0-1.3) K/mcL Eosinophils # 0.2 (0.0-0.6) K/mcL Basophils # 0.1 (0.0-0.2) K/mcL PT 10.3 (9.4-12.1) Seconds INR 1.0 APTT 37.4 H (26.0-36.0) Seconds Sodium 138 (136-145) mEq/L Potassium 4.0 (3.5-4.5) mEq/L Chloride 102 (98-109) mEq/L Carbon Dioxide 25 (19-29) mEq/L BUN 12 (7-20) mg/dL Creatinine 0.71 (0.57-1.11) mg/dL Est GFR ( Amer) > 60 (> 60) Est GFR (Non-Af Amer) > 60 (> 60) BUN/Creatinine Ratio 17 (6-26) Glucose 119 H (70-99) mg/dL Calculated Osmolality 287 (280-300) Calcium 9.6 (8.6-10.8) mg/dL Troponin I (0-0.03) ng/mL Urine Color (Yellow) Urine Clarity (Clear) Urine pH (5.0-8.0) pH Units Ur Specific [place] (1.010-1.025) Urine Protein (Neg-Trace) mg/dL Urine Glucose (UA) (Normal) mg/dL Urine Ketones (Negative) mg/dL Urine Blood (Negative) Urine Nitrite (Negative) Urine Bilirubin (Negative) Urine Urobilinogen (Normal) mg/dL Ur Leukocyte Esterase (Negative) Urine Microscopic RBC (0-3) per hpf Urine Microscopic WBC (0-3) per hpf Ur Squamous Epith Cells (None-Few) per lpf Urine Bacteria (None-Few) per hpf Hyaline Casts (None-Few) per lpf Ur Culture Indicated? (NO) 12/23/16 12/23/16 Range/Units 13:58 14:05 WBC (4.3-11.1) K/mcL RBC (3.82-4.97) M/mcL Hgb (11.5-15.4) g/dL Hct (35.3-44.9) % MCV (83.0-100.0) fL MCH (28.0-33.3) pg MCHC (31.6-35.5) g/dL RDW (11.5-14.5) % Plt Count (140-400) K/mcL MPV (9.4-12.4) fL Immature Gran % (0-4) % Seg Neutrophils % % Lymphocytes % % Monocytes % % Eosinophils % % Basophils % % Neutrophils # (1.6-8.9) K/mcL Lymphocytes # (0.6-4.6) K/mcL Monocytes # (0.0-1.3) K/mcL Eosinophils # (0.0-0.6) K/mcL Basophils # (0.0-0.2) K/mcL PT (9.4-12.1) Seconds INR APTT (26.0-36.0) Seconds Sodium (136-145) mEq/L Potassium (3.5-4.5) mEq/L Chloride (98-109) mEq/L Carbon Dioxide (19-29) mEq/L BUN (7-20) mg/dL Creatinine (0.57-1.11) mg/dL Est GFR ( Amer) (> 60) Est GFR (Non-Af Amer) (> 60) BUN/Creatinine Ratio (6-26) Glucose (70-99) mg/dL Calculated Osmolality (280-300) Calcium (8.6-10.8) mg/dL Troponin I 0.00 (0-0.03) ng/mL Urine Color Yellow (Yellow) Urine Clarity Clear (Clear) Urine pH 6.0 (5.0-8.0) pH Units Ur Specific [place] 1.020 (1.010-1.025) Urine Protein Negative (Neg-Trace) mg/dL Urine Glucose (UA) Normal (Normal) mg/dL Urine Ketones Negative (Negative) mg/dL Urine Blood Trace H (Negative) Urine Nitrite Negative (Negative) Urine Bilirubin Negative (Negative) Urine Urobilinogen Normal (Normal) mg/dL Ur Leukocyte Esterase Small H (Negative) Urine Microscopic RBC 0-3 (0-3) per hpf Urine Microscopic WBC 5-15 H (0-3) per hpf Ur Squamous Epith Cells Many H (None-Few) per lpf Urine Bacteria Few (None-Few) per hpf Hyaline Casts None Seen (None-Few) per lpf Ur Culture Indicated? YES A (NO)
--- NOTE | 2016-12-23 14:03 | Emergency Department Note ---
Disposition Clinical Impression: Right sided weakness, Frequent falls, Ataxia Disposition: Admitted As Inpatient Condition: Good Referrals: Kyle Moreno MD [Primary Care Provider] - Forms: ED Satisfaction Letter Neuro HPI - General Chief Complaint: ED Neuro Symptoms/Deficit Stated Complaint: neuro symptoms 2-3 months Time Seen by Provider: 12/23/16 13:43 Source: patient Mode of arrival: wheelchair Limitations: no limitations Nursing Notes Reviewed: Yes Vital Signs Reviewed: Yes - History of Present Illness HPI Narrative: 41-year-old female history of diabetes who presents to the ER from the neurology office due to concern for falls and possible stroke. Patient was seen today by neurology as a consult due to falls. They called over concerned because she has right sided falls and ataxia. Patient states she has been having falls for months. She just now saw neurology as an outpatient to establish care. She denies prior history of CVA. She reports weakness more on her right when compared to her left. She also reports some sensory deficit on the right compared to the left. She states she feels unsteady on her feet. No other complaints. Location: right arm, right leg, ataxia History of same: No Severity: moderate Quality: weakness, numbness Symptoms Improving: No Improves with: none Worsens with: none Context: gradual onset On Anticoagulants: No Associated symptoms: Reports: weakness Treatments Prior to Arrival: none - Related Data Home Medications: Home Medications Medication Instructions Recorded Confirmed Budesonide/Formoterol 160/4.5 2 puff IH BIDR 08/19/15 12/23/16 [Symbicort 160/4.5] Ergocalciferol (VITAMIN D2) 50,000 unit PO TH 08/19/15 12/23/16 [Drisdol (50,000 Unit)] Fluticasone Propionate Nasal 50 mcg NS DAILY 08/19/15 12/23/16 [Flonase] Montelukast [Singulair] 10 mg PO HS 08/19/15 12/23/16 Ranitidine HCl [Zantac] 300 mg PO DAILY 08/19/15 12/23/16 diazePAM [Valium] 10 mg PO QAM 08/19/15 12/23/16 lamoTRIgine [Lamictal] 200 mg PO HS 08/19/15 12/23/16 Cetirizine HCl [All Day Allergy] 10 mg PO DAILY 12/22/15 12/23/16 Atorvastatin [Lipitor] 10 mg PO HS 08/29/16 12/23/16 Doxepin HCl 100 mg PO HS 08/29/16 12/23/16 HYDROcodone/Acet 7.5/325 mg [[place] 1 tab PO BID PRN 08/29/16 12/23/16 7.5-325 mg] Ipratropium/Albuterol Neb [Duoneb] 3 ml IH Q6HR PRN 08/29/16 12/23/16 Fluticasone/Vilanterol [Breo 1 each IH DAILY 12/23/16 12/23/16 Ellipta 100-25 Mcg INH] Gabapentin [Neurontin] 600 mg PO QID 12/23/16 12/23/16 Insulin Glargine,Hum.rec.anlog 36 unit SQ HS 12/23/16 12/23/16 [Basaglar Kwikpen U-100] Insulin LISPRO [Humalog Kwikpen 0 unit SQ TIDWM 12/23/16 12/23/16 U-100] Levalbuterol Tartrate [Xopenex Hfa] 2 puff IH Q4H PRN 12/23/16 12/23/16 Metformin HCl [Glucophage] 1,000 mg PO BID 12/23/16 12/23/16 Ondansetron [Zofran] 8 mg PO Q8H PRN 12/23/16 12/23/16 Sertraline [Zoloft] 50 mg PO DAILY 12/23/16 12/23/16 diazePAM [Valium] 20 mg PO HS 12/23/16 12/23/16 Previous Rx's Medication Instructions Recorded HydrOXYzine Pamoate [Vistaril] 50 mg PO BID PRN #30 capsule 12/14/16 Orphenadrine [Norflex] 100 mg PO Q12HR PRN #14 tablet.er 12/19/16 Allergies/Adverse Reactions: Allergies Allergy/AdvReac Type Severity Reaction Status Date / Time morphine Allergy Unknown facial Verified 12/23/16 13:59 swelling, redness Penicillins Allergy Unknown Unknown Verified 12/23/16 13:59 pregabalin [From Lyrica] Allergy Unknown Blindness, Verified 12/23/16 13:59 Difficulty walking trazodone Allergy Unknown Tachycardia Verified 12/23/16 13:59 aspirin AdvReac Unknown nausea and Verified 12/23/16 13:59 vomiting sumatriptan [From Imitrex] AdvReac Unknown Disoriented Verified 12/23/16 13:59 All systems ED: reviewed and negative except as stated. Constitutional: Denies: fever Cardiovascular: Denies: chest pain Respiratory: Denies: dyspnea Gastrointestinal: Denies: abdominal pain Neurological: Reports: weakness, paresthesias. Denies: headache Past Medical History - Past Medical History Attestation: Yes The following information was validated with the patient. Source: patient Medical history: Reports: asthma, diabetes, GERD, hyperlipidemia Surgical history: Reports: hysterectomy, orthopedic, other, other (Dennis fundoplication, EGD/colonoscopy 12/2015 without abnormalities) Psychiatric history: Reports: anxiety, depression ORACLE APPLICATIONS DEVELOPER history: Reports: no ORACLE APPLICATIONS DEVELOPER history - Social History Smoking Status: Current every day smoker Smokeless Tobacco Status: No Alcohol use: Reports: rarely Drug use: Reports: none Physical Exam - General Limitations: no limitations General appearance: alert, in no apparent distress - Head Head exam: atraumatic, normocephalic, normal inspection - Eye Eye exam: Present: normal appearance, EOMI - ENT ENT exam: normal exam - Neck Neck exam: Present: normal inspection, full ROM - Chest Chest inspection: Present: normal inspection, symmetric chest wall rise - Respiratory Respiratory exam: Present: normal lung sounds bilaterally - Cardiovascular Cardiovascular exam: Present: regular rate, normal rhythm, normal heart sounds - Abdominal Exam Abdominal exam: Present: soft, Non-Tender. Absent: tenderness - Extremities Exam Extremities exam: Present: normal inspection, full ROM - Expanded Upper Extremity Exam Shoulder exam: Present: normal inspection, full ROM Arm exam: Present: normal inspection, full ROM Elbow exam: Present: normal inspection, full ROM Forearm/Wrist exam: Present: normal inspection, full ROM Hand exam: Present: normal inspection, full ROM - Expanded Lower Extremity Exam Hip/Pelvis exam: Present: normal inspection, full ROM Upper leg exam: Present: normal inspection, full ROM Knee exam: Present: normal inspection, full ROM Lower leg exam: Present: normal inspection, full ROM Ankle exam: Present: normal inspection, full ROM Foot/toe exam: Present: normal inspection, full ROM Neurovascular/Tendon exam: Absent: motor deficit - Neurological Exam Neurological exam: Present: alert, oriented X3, CN II-XII intact - Expanded Neurological Exam Speech: Present: fluid speech Cranial nerves: EOM function (II, III, IV, ): Normal, facial sensation (V): Normal, spinal accessory function (XI): Normal, tongue deviation (XII): Normal Cerebellar function: finger to nose: Abnormal Right Motor strength - LUE: 5/5 Motor strength - RUE: 4/5 Motor strength - LLE: 5/5 Motor strength - RLE: 4/5 Sensory exam upper extremity: light touch: Abnormal Right Sensory exam lower extremity: light touch: Abnormal Right Coma Scale Eye Opening: Spontaneous Coma Scale Motor Response: Obeys Commands Coma Scale Verbal Response: Oriented Coma Scale Total: 15 - Psychiatric Psychiatric exam: Present: flat affect - Skin Skin exam: Present: warm, dry, intact Course Course Narrative: Patient seen and examined. She has some right sided subjective paresthesias as well as some ataxia. We will repeat her head CT as well as labs and admit to the hospitalist service with neurologic consultation. Vital Signs Temperature 97.6 F 12/23/16 13:39 Pulse Rate 98 12/23/16 13:39 Respiratory Rate 18 12/23/16 13:39 Blood Pressure 110/75 12/23/16 13:39 O2 Sat by Pulse Oximetry 96 12/23/16 13:39 Temperature 97.6 F 12/23/16 13:39 Pulse Rate 89 12/23/16 15:04 Respiratory Rate 20 12/23/16 15:04 Blood Pressure 115/76 12/23/16 15:04 O2 Sat by Pulse Oximetry 94 12/23/16 15:04 Oxygen Delivery Oxygen Delivery Room Air Neuro Symptoms/Deficit - MDM Narrative Medical decision making narrative: 41-year-old female presents to the ER from neurologist office due to falls and ataxia. CT scan here demonstrates no acute findings. Labs reviewed. Neurology is aware of the patient and will see in consultation. Admitted to the hospitalist service. - Lab Data Lab results reviewed: Yes I reviewed the patient's lab results. Result diagrams: 12/23/16 13:58 12/23/16 13:58 Lab Results 12/23/16 12/23/16 12/23/16 Range/Units 13:58 13:58 13:58 WBC 22.2 H (4.3-11.1) K/mcL RBC 4.64 (3.82-4.97) M/mcL Hgb 13.4 (11.5-15.4) g/dL Hct 41.0 (35.3-44.9) % MCV 88.4 (83.0-100.0) fL MCH 28.9 (28.0-33.3) pg MCHC 32.7 (31.6-35.5) g/dL RDW 13.9 (11.5-14.5) % Plt Count 394 (140-400) K/mcL MPV 8.5 L (9.4-12.4) fL Immature Gran % 1.5 (0-4) % Seg Neutrophils % 64.8 % Lymphocytes % 26.1 % Monocytes % 6.3 % Eosinophils % 0.7 % Basophils % 0.6 % Neutrophils # 14.4 H (1.6-8.9) K/mcL Lymphocytes # 5.8 H (0.6-4.6) K/mcL Monocytes # 1.4 H (0.0-1.3) K/mcL Eosinophils # 0.2 (0.0-0.6) K/mcL Basophils # 0.1 (0.0-0.2) K/mcL PT 10.3 (9.4-12.1) Seconds INR 1.0 APTT 37.4 H (26.0-36.0) Seconds Sodium 138 (136-145) mEq/L Potassium 4.0 (3.5-4.5) mEq/L Chloride 102 (98-109) mEq/L Carbon Dioxide 25 (19-29) mEq/L BUN 12 (7-20) mg/dL Creatinine 0.71 (0.57-1.11) mg/dL Est GFR ( Amer) > 60 (> 60) Est GFR (Non-Af Amer) > 60 (> 60) BUN/Creatinine Ratio 17 (6-26) Glucose 119 H (70-99) mg/dL Calculated Osmolality 287 (280-300) Calcium 9.6 (8.6-10.8) mg/dL Troponin I (0-0.03) ng/mL Urine Color (Yellow) Urine Clarity (Clear) Urine pH (5.0-8.0) pH Units Ur Specific [place] (1.010-1.025) Urine Protein (Neg-Trace) mg/dL Urine Glucose (UA) (Normal) mg/dL Urine Ketones (Negative) mg/dL Urine Blood (Negative) Urine Nitrite (Negative) Urine Bilirubin (Negative) Urine Urobilinogen (Normal) mg/dL Ur Leukocyte Esterase (Negative) Urine Microscopic RBC (0-3) per hpf Urine Microscopic WBC (0-3) per hpf Ur Squamous Epith Cells (None-Few) per lpf Urine Bacteria (None-Few) per hpf Hyaline Casts (None-Few) per lpf Ur Culture Indicated? (NO) 12/23/16 12/23/16 Range/Units 13:58 14:05 WBC (4.3-11.1) K/mcL RBC (3.82-4.97) M/mcL Hgb (11.5-15.4) g/dL Hct (35.3-44.9) % MCV (83.0-100.0) fL MCH (28.0-33.3) pg MCHC (31.6-35.5) g/dL RDW (11.5-14.5) % Plt Count (140-400) K/mcL MPV (9.4-12.4) fL Immature Gran % (0-4) % Seg Neutrophils % % Lymphocytes % % Monocytes % % Eosinophils % % Basophils % % Neutrophils # (1.6-8.9) K/mcL Lymphocytes # (0.6-4.6) K/mcL Monocytes # (0.0-1.3) K/mcL Eosinophils # (0.0-0.6) K/mcL Basophils # (0.0-0.2) K/mcL PT (9.4-12.1) Seconds INR APTT (26.0-36.0) Seconds Sodium (136-145) mEq/L Potassium (3.5-4.5) mEq/L Chloride (98-109) mEq/L Carbon Dioxide (19-29) mEq/L BUN (7-20) mg/dL Creatinine (0.57-1.11) mg/dL Est GFR ( Amer) (> 60) Est GFR (Non-Af Amer) (> 60) BUN/Creatinine Ratio (6-26) Glucose (70-99) mg/dL Calculated Osmolality (280-300) Calcium (8.6-10.8) mg/dL Troponin I 0.00 (0-0.03) ng/mL Urine Color Yellow (Yellow) Urine Clarity Clear (Clear) Urine pH 6.0 (5.0-8.0) pH Units Ur Specific [place] 1.020 (1.010-1.025) Urine Protein Negative (Neg-Trace) mg/dL Urine Glucose (UA) Normal (Normal) mg/dL Urine Ketones Negative (Negative) mg/dL Urine Blood Trace H (Negative) Urine Nitrite Negative (Negative) Urine Bilirubin Negative (Negative) Urine Urobilinogen Normal (Normal) mg/dL Ur Leukocyte Esterase Small H (Negative) Urine Microscopic RBC 0-3 (0-3) per hpf Urine Microscopic WBC 5-15 H (0-3) per hpf Ur Squamous Epith Cells Many H (None-Few) per lpf Urine Bacteria Few (None-Few) per hpf Hyaline Casts None Seen (None-Few) per lpf Ur Culture Indicated? YES A (NO) - Radiology Data Radiology results reviewed: Yes I reviewed the patient's radiology results. Head CT 12/23/16 13:48 IMPRESSION: Stable appearance of the brain with no acute intracranial abnormality. D/ / Brendon Greer MD / Brendon Greer MD Interpreting Provider: Brendon Greer MD Checklist - LKW: 3-4.5 hrs Add. Warnings/Precautions Patient/family understanding: The patient/family members have been counseled and understood the risk, benefit , and alternatives of treatment. [place] Situation: Demographics, MOA Background: Presenting Complaint, Relevant PMH, Meds, & Allergies Assessment: Course and respsone to treatment, Exam Concerns, Patient/Family Expectation, Pertinant Lab Results Recommendation: Barrier(s) to disposition, Recommendation based on pending studies, treatments, or consults [place] Report Given to: Dr. Henry Haynes Repor Time: 15:32 (Request that I place the MRIs that neurology recommended when I spoke with them.)
[2016-12-23 14:18] LABS: Basophils # 0.1 K/mcL (0.0-0.2); Basophils % 0.6 %; Eosinophils # 0.2 K/mcL (0.0-0.6); Eosinophils % 0.7 %; Hemoglobin 13.4 g/dL (11.5-15.4); Immature Granulocytes % 1.5 % (0-4); Lymphocytes # 5.8 K/mcL (0.6-4.6); Lymphocytes % 26.1 %; Mean Corpuscular HGB Conc 32.7 g/dL (31.6-35.5); Mean Corpuscular Hemoglobin 28.9 pg (28.0-33.3); Mean Corpuscular Volume 88.4 fL (83.0-100.0); Mean Platelet Volume 8.5 fL (9.4-12.4); Monocytes # 1.4 K/mcL (0.0-1.3); Monocytes % 6.3 %; Neutrophils # 14.4 K/mcL (1.6-8.9); Platelet Count 394 K/mcL (140-400); Red Blood Count 4.64 M/mcL (3.82-4.97); Red Cell Distribution Width 13.9 % (11.5-14.5); Segmented Neutrophils % 64.8 %
[2016-12-23 14:19] LABS: Bilirubin,Urine Negative (Negative); Blood,Urine Trace (Negative); Clarity,Urine Clear (Clear); Color,Urine Yellow (Yellow); Glucose,Urine (UA) Normal (Normal); Ketones,Urine Negative (Negative); Leukocyte Esterase,Urine Small (Negative); Nitrite,Urine Negative (Negative); Protein,Urine Negative (Neg-Trace); Urobilinogen,Urine Normal (Normal)
[2016-12-23 14:21] LABS: Bacteria,Urine Few per hpf (None-Few); Hyaline Casts,Urine None Seen per lpf (None-Few); RBC,Urine 0-3 per hpf (0-3); Squamous Epithelial Cell,Urine Many per lpf (None-Few)
[2016-12-23 14:22] LABS: Prothrombin Time 10.3 Seconds (9.4-12.1)
[2016-12-23 14:25] LABS: Activated Partial Thrombo Time 37.4 Seconds (26.0-36.0)
[2016-12-23 14:28] LABS: BUN/Creatinine Ratio 17 (6-26); Blood Urea Nitrogen 12 mg/dL (7-20); Calcium 9.6 mg/dL (8.6-10.8); Carbon Dioxide 25 mEq/L (19-29); Chloride 102 mEq/L (98-109); Glucose 119 mg/dL (70-99); Osmolality,Calculated 287 (280-300); Sodium 138 mEq/L (136-145); eGFR For African Americans > 60 (> 60); eGFR For Non-African Americans > 60 (> 60)
[2016-12-23] MEDS ORDERED: Orphenadrine 100 MG TABLET.ER PO PRN (21:34)
[2016-12-23] MEDS ORDERED: Levalbuterol 1 PUFF INHALER IH PRN (21:34)
[2016-12-23] MEDS ORDERED: hydrOXYzine pamoate 25 MG CAPSULE PO PRN (21:34)
[2016-12-23] MEDS ORDERED: Ondansetron ODT 4 MG TAB.RAPDIS PO PRN (21:34)
[2016-12-23] MEDS ORDERED: Dextrose Gel 15 GM PO PRN ×2 (21:55)
[2016-12-23] MEDS ORDERED: *HR* Dextrose 50 % in Water (Syg) 50 ML SYRINGE IVP PRN (21:55)
[2016-12-23] MEDS ORDERED: D5% in Water 1,000 ML IVC PRN (21:55)
[2016-12-23] MEDS ORDERED: Naloxone 0.4 MG/ML INJ IVP PRN (21:59)
[2016-12-23] MEDS: Budesonide/Formoterol 160/4.5 MDI IH SCH (22:14)
[2016-12-23] MEDS: Insulin LISPRO 300 UNITS/3 ML VIAL SQ SCH (22:26)
--- NOTE | 2016-12-23 23:21 | Internal Med History&Physical ---
<Flynn Jenkins - Last Filed: 12/23/16 23:50> Date of Encounter: 12/23/16 Time of Encounter: 20:00 Assessment and Plan (1) Right sided weakness Current visit: Yes Status: Acute Acute right-sided weakness for the past several months. Pt. has mild rt-sided weakness in UE and LE (4/5). Pt. also falls to the right when upright or eyes closed. Slight speech deficit noted on exam. Denies hx of CVA/TIAs. Cannot exclude neuromuscular dx such as MS or MD w/o further evaluation and testing. CT of the head brain without contrast today shows stable appearance of the brain with no acute intracranial abnormality. MRI of the head brain without contrast today shows no acute intracranial abnormality and mild ventriculomegaly without definite hydrocephalus. Neurology consult ordered in ED. Falls/safety precautions. Bilateral carotid Doppler duplex imaging ordered. Pt. high risk for further morbidity/injury based on current sx, hx, and risk factors. Observation. (2) Ataxia Current visit: Yes Status: Acute Acute ataxia for the past several months. Pt. states she is unstable on her feet and falls to the right. CT of the head brain without contrast today shows stable appearance of the brain with no acute intracranial abnormality. MRI of the head brain without contrast today shows no acute intracranial abnormality and mild ventriculomegaly without definite hydrocephalus. Neurology consult ordered in ED. Falls/safety precautions. (3) Leucocytosis Current visit: Yes Status: Acute Acute leukocytosis with WBC of 22.0 most likely d/t current symptomology of unknown etiology. Pt. is currently afebrile and asymptomatic for infection. Lungs clear on auscultation. Pt. denies recent illness, cough, fever, chills, nausea, vomiting, sick contacts, or recent hospitalization. Initial U/A is dirty and if urine culture is positive we will administer abx coverage. Monitor f/u labs and pt. for signs of infection. Qualifiers: Leukocytosis type: other Qualified Code(s): D72.828 - Other elevated white blood cell count (4) Diabetes Current visit: Yes Status: Chronic Hx of chronic diabetes controlled with oral antihyperglycemic medications and insulin. Will hold patient's oral medications and administer low-dose correction sliding scale insulin and add pts. Levemir 36 units HS. BG checks ACHS. A1c in a.m. labs. ADA diet. 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 Continue pts. Zofran and Zantac. Qualifiers: Esophagitis presence: esophagitis presence not specified Qualified Code(s) : K21.9 - Gastro-esophageal reflux disease without esophagitis (6) HLD (hyperlipidemia) Current visit: Yes Status: Chronic Hx of chronic HLD. Continue pts. Lipitor. Qualifiers: Hyperlipidemia type: pure hypercholesterolemia Qualified Code(s): E78.00 - Pure hypercholesterolemia, unspecified; E78.0 - Pure hypercholesterolemia (7) DVT prophylaxis Current visit: Yes Status: Acute Lovenox 40 mg 0600 for DVT prophylaxis. Monitor pt. for signs of bleeding. Internal Medicine - H&P: HPI Chief complaint: Neuro Deficit/Disequilibrium affecting rt. side Admitted From: Emergency Dept Plans for Post Hospital Care: Home History of present illness: Ms. Conde is a 41 year old female with medica hx of asthma, diabetes controlled with oral and insulin, GERD, and hyperlipidemia presents from the ED with chief complaint of right-sided falls and ataxia for the past 2-3 months. Patient was seen at neurology office today and sent to the ED due to instability and disequilibrium. Patient states she feels unsteady on her feet. Patient reports mild SOB requiring O2 at night but denies recent illness, fever, chills , nausea, vomiting, headache, changes in vision, unusual bleeding, chest pain, palpitations, abdominal pain, constipation, diarrhea, lightheadedness, dizziness , pre-syncope, or syncope. Past Med Surg Social Fam HX - Past Medical History Source: patient, old records reviewed, obtained from family Medical history: asthma, diabetes, GERD, hyperlipidemia Psychiatric history: anxiety, depression - Past Surgical History Surgical History: hysterectomy (Total), orthopedic, other, other (Bilateral carpal tunnel, bilateral meniscus repair) - Social History Smoking Status: Current every day smoker Packs per day: 1/2 to 1 PPD Smokeless Tobacco Status: No Alcohol use: rarely Drug use: none Occupational status: employed Current living situation: Home, With Family Activity Level: Independent ambulation Recent Out of Country Travel Within the Last 8 Weeks: No Exposure or Possible Exposure to Illness During Travel: No - Family History Mother Age: 60 Race: Family Member Ethnicity: Non- Living Status: Still Living Hx Family Respiratory Disorders: Yes Father Age: 63 Race: Family Member Ethnicity: Non- Living Status: Still Living Hx Family Cardiac Disorders: Yes Internal Medicine - H&P: Meds Budesonide/Formoterol 160/4.5 [Symbicort 160/4.5] 2 puff IH BIDR 08/19/15 [ History] Ergocalciferol (VITAMIN D2) [Drisdol (50,000 Unit)] 50,000 unit PO TH 08/19/15 [ History] Fluticasone Propionate Nasal [Flonase] 50 mcg NS DAILY 08/19/15 [History] Montelukast [Singulair] 10 mg PO HS 08/19/15 [History] Ranitidine HCl [Zantac] 300 mg PO DAILY 08/19/15 [History] diazePAM [Valium] 10 mg PO QAM 08/19/15 [History] lamoTRIgine [Lamictal] 200 mg PO HS 08/19/15 [History] Cetirizine HCl [All Day Allergy] 10 mg PO DAILY 12/22/15 [History] Atorvastatin [Lipitor] 10 mg PO HS 08/29/16 [History] Doxepin HCl 100 mg PO HS 08/29/16 [History] HYDROcodone/Acet 7.5/325 mg [Greene 7.5-325 mg] 1 tab PO BID PRN 08/29/16 [ History] Ipratropium/Albuterol Neb [Duoneb] 3 ml IH Q6HR PRN 08/29/16 [History] HydrOXYzine Pamoate [Vistaril] 50 mg PO BID PRN #30 capsule 12/14/16 [Rx] Orphenadrine [Norflex] 100 mg PO Q12HR PRN #14 tablet.er 12/19/16 [Rx] Fluticasone/Vilanterol [Breo Ellipta 100-25 Mcg INH] 1 each IH DAILY 12/23/16 [ History] Gabapentin [Neurontin] 600 mg PO QID 12/23/16 [History] Insulin Glargine,Hum.rec.anlog [Basaglar Kwikpen U-100] 36 unit SQ HS 12/23/16 [ History] Insulin LISPRO [Humalog Kwikpen U-100] 0 unit SQ TIDWM 12/23/16 [History] Levalbuterol Tartrate [Xopenex Hfa] 2 puff IH Q4H PRN 12/23/16 [History] Metformin HCl [Glucophage] 1,000 mg PO BID 12/23/16 [History] Ondansetron [Zofran] 8 mg PO Q8H PRN 12/23/16 [History] Sertraline [Zoloft] 50 mg PO DAILY 12/23/16 [History] diazePAM [Valium] 20 mg PO HS 12/23/16 [History] 3 Allergy/AdvReac Type Severity Reaction Status Date / Time morphine Allergy Unknown facial Verified 12/23/16 13:59 swelling, redness Penicillins Allergy Unknown Unknown Verified 12/23/16 13:59 pregabalin [From Lyrica] Allergy Unknown Blindness, Verified 12/23/16 13:59 Difficulty walking trazodone Allergy Unknown Tachycardia Verified 12/23/16 13:59 aspirin AdvReac Unknown nausea and Verified 12/23/16 13:59 vomiting sumatriptan [From Imitrex] AdvReac Unknown Disoriented Verified 12/23/16 13:59 All Systems PM: A 10-system review of systems was performed and is negative for pertinent findings except as documented above in the HPI. - Constitutional Constitutional: weakness (Rt-sided (4/5)), no chills, no fever(s), no night sweats - EENT Eyes: no change in vision, no discharge, no pain, no photophobia Ears: no ear discharge, no ear pain, no tinnitus Nose, mouth and throat: no dysphagia, no nasal discharge, no neck pain, no sore throat - Breasts Breasts: as per HPI - Cardiovascular Cardiovascular ROS IM: as per HPI, dyspnea, no chest pain, no diaphoresis, no lightheadedness, no palpitations, no syncope - Respiratory Respiratory: as per HPI, dyspnea, no cough, no wheezing, no excessive phlegm production - Gastrointestinal Gastrointestinal: no abdominal pain, no diarrhea, no hematemesis, no hematochezia, no melena, no nausea, no vomiting - Genitourinary Genitourinary: no change in urinary stream, no dysuria, no flank pain, no hematuria Menstruation: as per HPI, post hysterectomy - Musculoskeletal Musculoskeletal ROS IM: no numbness, no tingling - Integumentary Integumentary IM: no rash, no unusual bruising - Neurological Neurological ROS: as per HPI, abnormal gait, abnormal speech (Mild), disequilibrium, weakness (Rt-sided) - Psychiatric Psychiatric: as per HPI, anxiety, depression - Endocrine Endocrine IM: as per HPI - Hematologic/Lymphatic Hematologic/Lymphatic: no easy bruising - Allergic/Immunologic Allergic/Immunologic: as per HPI - Constitutional Vitals: Temp Pulse Resp BP Pulse Ox 98.9 F 93 18 103/69 96 12/23/16 19:32 12/23/16 19:32 12/23/16 22:15 12/23/16 19:32 12/23/16 22:15 General appearance: Present: cooperative, A&O X 3, pleasant, no acute distress, obese, answers questions appropriately - Head Head exam: Present: atraumatic, normocephalic - Eye Eye exam: Present: PERRL, conjuntiva pink, sclera anicteric Pupils: Present: PERRL - ENT ENT exam: Present: normal exam - Neck Neck exam general surgery: Present: normal inspection - Respiratory Respiratory exam: Present: CTAB. Absent: accessory muscle use, rales, rhonchi, wheezes - Cardiovascular Cardiovascular exam: Present: RRR, +S1, +S2. Absent: diastolic murmur, gallop, rubs, systolic murmur - GI/Abdominal GI/Abdominal exam: Present: normal bowel sounds, soft, no peritoneal signs. Absent: distended, tenderness - Rectal Rectal exam: Present: deferred - Additional comments: exam deferred. - Extremities Exam Extremities exam: Present: warm, radial pulses palpable and symmetrical. Absent : calf tenderness, cyanotic, pedal edema - Back Exam Back exam: Present: normal inspection - Neurological Exam Neurological exam: Present: abnormal gait, alert, CN II-XII intact, oriented X3 , no focal deficits, speech deficit (Mild). Absent: pronater drift, facial droop - Psychiatric Psychiatric exam: Present: normal affect, normal mood - Skin Skin exam: Present: dry, intact Internal Med - H&P Results - Labs CBC & Chem 7: 12/23/16 13:58 12/23/16 13:58 - EKG Data EKG shows normal: sinus rhythm - EKG Data Prior EKG available for review: yes Interpretation IM: suggestive of ischemia EKG comments: 12/23/16 23:27 EKG dated 06/21/16 shows sinus tachycardia and probable inferior myocardial infarction (probably old). EKG dated 12/23/16 shows sinus rhythm with incomplete right bundle branch block and possible inferior myocardial infarction (probably old). - Diagnostic Studies CT scan - head Additional comments: Impressions Head CT 12/23/16 13:48 IMPRESSION: Stable appearance of the brain with no acute intracranial abnormality. D/ / Brendon Greer MD / Brendon Greer MD Interpreting Provider: Brendon Greer MD MRI - head Additional comments: Impressions Brain MRI 12/23/16 15:26 IMPRESSION: No acute intracranial abnormality. Mild ventriculomegaly without definite hydrocephalus. D/ / Howie Ruiz MD / Howie Ruiz MD Interpreting Provider: Howie Ruiz MD Other Images Additional comments: Impressions Cervical Spine MRI 12/23/16 15:26 IMPRESSION: Motion artifacts. Straightening of normal cervical lordosis. Multilevel degenerative disc disease as described above, grossly stable. No spinal canal narrowing. Foraminal narrowing, mild at bilateral C3-4, bilateral C4-5 and bilateral C5-6. D/ / Howie Ruiz MD / Howie Ruiz MD Interpreting Provider: Howie Ruiz MD <Hipolito Daley - Last Filed: 12/24/16 00:56> Date of Encounter: 12/24/16 Internal Medicine - H&P: HPI History of present illness: Ms. Conde is a 41 year old female All Systems PM: A 10-system review of systems was performed and is negative for pertinent findings except as documented above in the HPI. - Constitutional Vitals: Temp Pulse Resp BP Pulse Ox 97.3 F L 95 16 115/73 95 12/24/16 00:05 12/24/16 00:05 12/24/16 00:05 12/24/16 00:05 12/24/16 00:05 Internal Med - H&P Results - Labs CBC & Chem 7: 12/23/16 13:58 12/23/16 13:58 - Attending Attestation Seen and examined at bedside on 12/23/16 NO currrent neurologic deficits, exam is unremarkable #Suspect normal pressure hydrocephalus Neuro to see-Head MRI, C-Spine MRI noted #Leukocytosis is unexplained at this time-no fever, no source of infection, no neck stiffness, no chest symptoms Other chronic medical conditions are stable, resume home meds Rest of details as in LOS Jenkins's documentation
[2016-12-24] MEDS ORDERED: diazePAM 10 MG TABLET PO ONE (00:05)
[2016-12-24] MEDS: Nicotine 14 MG PATCH.TD24 TD SCH ×2 (00:23→10:42)
[2016-12-24] MEDS: lamoTRIgine 100 MG TABLET PO SCH ×2 (00:23→20:32)
[2016-12-24] MEDS: *HR* HYDROcodone/Acet 7.5/325 mg TABLET PO PRN ×2 (00:25→10:59)
[2016-12-24] MEDS: Insulin DETEMIR 100 UNIT/ML X5UNITS SQ SCH ×2 (00:28→20:31)
[2016-12-24 03:35] LABS: Basophils # 0.2 K/mcL (0.0-0.2); Eosinophils # 0.2 K/mcL (0.0-0.6); Hematocrit 39.8 % (35.3-44.9); Immature Granulocytes % 1.7 % (0-4); Lymphocytes # 4.8 K/mcL (0.6-4.6); Lymphocytes % 30.5 %; Mean Corpuscular HGB Conc 32.7 g/dL (31.6-35.5); Mean Corpuscular Volume 88.8 fL (83.0-100.0); Mean Platelet Volume 8.7 fL (9.4-12.4); Monocytes # 1.2 K/mcL (0.0-1.3); Monocytes % 7.7 %; Neutrophils # 9.1 K/mcL (1.6-8.9); Platelet Count 382 K/mcL (140-400); Red Blood Count 4.48 M/mcL (3.82-4.97); Red Cell Distribution Width 13.7 % (11.5-14.5); Segmented Neutrophils % 58.1 %
[2016-12-24 03:46] LABS: Hemoglobin A1C 6.6 %
[2016-12-24 03:54] LABS: Alanine Aminotransferase 33 Units/L (0-55); Albumin 3.3 g/dL (3.5-5.0); Albumin/Globulin Ratio 0.9 (1.1-2.2); Alkaline Phosphatase 141 Units/L (38-126); Aspartate Amino Transferase 21 Units/L (5-34); BUN/Creatinine Ratio 15 (6-26); Bilirubin,Total 0.2 mg/dL (0.2-1.2); Blood Urea Nitrogen 10 mg/dL (7-20); Calcium 9.2 mg/dL (8.6-10.8); Carbon Dioxide 27 mEq/L (19-29); Chloride 104 mEq/L (98-109); Chol/HDL Ratio 3.3 (0-4.9); Cholesterol 202 mg/dL (< 200); Globulin 3.7 g/dL (2.4-3.5); Glucose 111 mg/dL (70-99); HDL Cholesterol 62 mg/dL (40-59); LDL Cholesterol,Calculated 101 mg/dL (0-99); Magnesium 2.1 mg/dL (1.6-2.6); Osmolality,Calculated 288 (280-300); Potassium 3.8 mEq/L (3.5-4.5); Sodium 139 mEq/L (136-145); Triglycerides 193 mg/dL (< 150); eGFR For African Americans > 60 (> 60); eGFR For Non-African Americans > 60 (> 60)
[2016-12-24] MEDS: *HR* Enoxaparin 40 MG/0.4 ML SYRINGE SQ SCH (04:20)
[2016-12-24] MEDS: Insulin LISPRO 300 UNITS/3 ML VIAL SQ SCH ×5 (07:42→20:40)
[2016-12-24] MEDS: Budesonide/Formoterol 160/4.5 MDI IH SCH ×2 (07:48→20:12)
--- NOTE | 2016-12-24 08:58 | Internal Med Progress Note ---
Date of Encounter: 12/24/16 Time of Encounter: 08:53 - Assessment and plan (1) Right sided weakness Current Visit: Yes Status: Acute Assessment and plan: Unclear etiology, very symptomatic MRI of the cervical spine shows diffuse mild bilateral foraminal narrowing from C3-C6 Neurology and Dr. Dent were consulted, recommendations appreciated Fall precautions (2) Leucocytosis Current Visit: Yes Status: Acute Assessment and plan: Unclear etiology Consider possible UTI Check a chest x-ray, start Rocephin Qualifiers: Leukocytosis type: other Qualified Code(s): D72.828 - Other elevated white blood cell count (3) Frequent falls Current Visit: Yes Status: Acute (4) Ataxia Current Visit: Yes Status: Acute (5) Diabetes Current Visit: Yes Status: Chronic Assessment and plan: Use insulin sliding scale Levemir 36 units at night Qualifiers: Diabetes mellitus type: type 2 Diabetes mellitus complication status: with unspecified complications 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 computer operator insulin use: with terminal computer operator use Qualified Code(s): E11.8 - Type 2 diabetes mellitus with unspecified complications; Z79.4 - custodial (current) use of insulin; Z79.4 - custodial ( current) use of insulin; Z79.4 - terminal computer operator (current) use of insulin; Z79.4 - custodial (current) use of insulin (6) GERD (gastroesophageal reflux disease) Current Visit: Yes Status: Chronic Qualifiers: Esophagitis presence: esophagitis presence not specified Qualified Code(s) : K21.9 - Gastro-esophageal reflux disease without esophagitis (7) HLD (hyperlipidemia) Current Visit: Yes Status: Chronic Assessment and plan: Atorvastatin Qualifiers: Hyperlipidemia type: pure hypercholesterolemia Qualified Code(s): E78.00 - Pure hypercholesterolemia, unspecified; E78.0 - Pure hypercholesterolemia - Subjective Interval history: Complains of persistent right upper extremity weakness and right lower extremity weakness, does not feel dizzy. No chest pressures of breath, no abdominal pain , mild dysuria - Constitutional Vitals: Temp Pulse Resp BP Pulse Ox 97.5 F L 91 20 131/83 94 12/24/16 07:01 12/24/16 07:01 12/24/16 07:01 12/24/16 07:01 12/24/16 07:01 General appearance: Present: cooperative, A&O X 3, pleasant, no acute distress, obese, answers questions appropriately - Head Head exam: Present: atraumatic, normocephalic - Eye Eye exam: Present: PERRL, conjuntiva pink, sclera anicteric Pupils: Present: PERRL - Neck Neck exam general surgery: Present: supple, trachea midline. Absent: lymphadenopathy - Respiratory Respiratory exam: Present: CTAB. Absent: accessory muscle use, rales, rhonchi, wheezes - Cardiovascular Cardiovascular exam: Present: RRR, +S1, +S2. Absent: diastolic murmur, gallop, rubs, systolic murmur - GI/Abdominal GI/Abdominal exam: Present: normal bowel sounds, soft, no peritoneal signs. Absent: distended, tenderness - Extremities Exam Extremities exam: Present: warm, radial pulses palpable and symmetrical. Absent : calf tenderness, cyanotic, pedal edema - Neurological Exam Neurological exam: Present: CN II-XII intact, oriented X3. Absent: no focal deficits, pronater drift, facial droop, speech deficit Additional comments: Right upper extremity weakness 4/5, dysmetria Mild right lower extremity weakness - Skin Skin exam: Present: dry, intact Internal Medicine: Result - Labs CBC & Chem 7: 12/24/16 02:40 12/24/16 02:40 Labs: Short CBC 12/24/16 Range/Units 02:40 WBC 15.6 H (4.3-11.1) K/mcL Hgb 13.0 (11.5-15.4) g/dL Hct 39.8 (35.3-44.9) % Plt Count 382 (140-400) K/mcL Neutrophils # 9.1 H (1.6-8.9) K/mcL BMP 12/24/16 02:40 Sodium 139 Potassium 3.8 Chloride 104 Carbon Dioxide 27 BUN 10 Creatinine 0.67 Glucose 111 H Calcium 9.2 Liver Function 12/24/16 Range/Units 02:40 Total Bilirubin 0.2 (0.2-1.2) mg/dL AST 21 (5-34) Units/L ALT 33 (0-55) Units/L Alkaline Phosphatase 141 H (38-126) Units/L Albumin 3.3 L (3.5-5.0) g/dL - ABG Interpretation ABG results: PT/INR, D-dimer PT 10.3 Seconds (9.4-12.1) 12/23/16 13:58 Consult Discharge Plan - Plan Referrals: Kyle Moreno MD [Primary Care Provider] -
[2016-12-24] MEDS ORDERED: diazePAM 10 MG TABLET PO SCH ×2 (09:00→21:00)
[2016-12-24] MEDS: cefTRIAXone 1,000 MG in Water for inj. (sterile) 10 ML IVP SCH (10:38)
[2016-12-24] MEDS: Gabapentin 300 MG CAPSULE PO SCH ×4 (10:41→20:32)
[2016-12-24] MEDS: Famotidine 20 MG TABLET PO SCH (10:41)
[2016-12-24] MEDS: Loratadine 10 MG TABLET PO SCH (10:41)
[2016-12-24] MEDS: Fluticasone Propionate Nasal 50 MCG/SPRAY BOTTLE NS SCH (10:43)
[2016-12-24] MEDS: [Breo Ellipta 100-25 Mcg IH SCH (10:44)
--- NOTE | 2016-12-24 11:41 | Neurology - Consult Note ---
Date of Encounter: 12/24/16 Time of Encounter: 10:15 Assessment and Plan (1) Sensory motor neuropathy Current Visit: Yes Status: Acute This patient who apparently had significant advanced sensorimotor peripheral neuropathy with dizziness history of uncontrolled diabetes but most recently she was admitted to the hospital with pancreatitis and also has prolonged hospitalization and has been on multiple antibiotics during that time perhaps she may have an underlying critical illness neuropathy and the top of her baseline diabetic neuropathy. At the moment her workup including MRI of the brain is negative for any acute stroke at the same time MRI of the cervical spine did not show any critical stenosis and no sign of cord dysfunction Though this really possibly that person her symptoms could be related to peripheral disorder like GBS /CIDP but at the moment does not seem to be typical presentation she did have positive reflexes and that is a concern that despite her advanced neuropathy she did have these reflexes present, perhaps could be due to lumbar stenosis as MRI of the cervical spine did not show any critical cervical stenosis. Overall she seemed to be stable but certainly have problems with her gait and balance which would remain a concern and make her high risk for the fall as she has already fallen several times. Also suggested that we should check for other metabolic causes including vitamin B12 folate and TSH as it may be contributing to her symptoms and can cause symptoms of myelopathy. Next and patient probably would benefit from short-term rehabilitation in particular for gait and balance training exercises. (2) Frequent falls Current Visit: Yes Status: Acute History of Present Illness HPI: Ms. Conde is a 41 year old female hx of asthma, diabetes controlled with oral and insulin, GERD, and hyperlipidemia presents from the ED with chief complaint of right-sided falls and ataxia for the past 2-3 months. Patient was seen at neurology office by Dr Mulligan, sent to the ED due to instability and disequilibrium and concern of cva, Patient states she feels unsteady on her feet. Patient reports mild SOB requiring O2 at night but denies recent illness , fever, chills, nausea, vomiting, headache, changes in vision, unusual bleeding , chest pain, palpitations, abdominal pain, constipation, diarrhea, lightheadedness, dizziness, pre-syncope. According to the patient she was admitted in the hospital earlier in August when she was diagnosed with pancreatitis and has received a lot of antibiotics at that time she was quite weak in her lower extremities along with the generalized weakness. At that time CT scan of the head as well as CT of the cervical and thoracic spine was unrevealing. She was discharged to home with physical therapy and also using a brace and walker to ambulate. Her difficulty with the balance continues and she has fallen several times. She is also complaining of weakness but more on the right as compared to the left side because of these concerns and she was admitted through the emergency room yesterday she had an MRI of the brain that did not show any acute abnormality particularly no evidence of any stroke at the same time MRI of the cervical spine shows multiple degenerative changes along with straightening of the spine but no critical stenosis reported Past Med Surg Social Fam HX - Past Medical History Medical history: asthma, diabetes, GERD, hyperlipidemia Psychiatric history: anxiety, depression - Past Surgical History Surgical History: hysterectomy (Total), orthopedic, other, other (Bilateral carpal tunnel, bilateral meniscus repair) - Social History Smoking Status: Current every day smoker Packs per day: 1/2 to 1 PPD Smokeless Tobacco Status: No Alcohol use: rarely Drug use: none - Family History Mother Age: 60 Race: Family Member Ethnicity: Non- Living Status: Still Living Hx Family Respiratory Disorders: Yes Father Age: 63 Race: Family Member Ethnicity: Non- Living Status: Still Living Hx Family Cardiac Disorders: Yes Medications and Allergies Budesonide/Formoterol 160/4.5 [Symbicort 160/4.5] 2 puff IH BIDR 08/19/15 [ History] Ergocalciferol (VITAMIN D2) [Drisdol (50,000 Unit)] 50,000 unit PO TH 08/19/15 [ History] Fluticasone Propionate Nasal [Flonase] 50 mcg NS DAILY 08/19/15 [History] Montelukast [Singulair] 10 mg PO HS 08/19/15 [History] Ranitidine HCl [Zantac] 300 mg PO DAILY 08/19/15 [History] diazePAM [Valium] 10 mg PO QAM 08/19/15 [History] lamoTRIgine [Lamictal] 200 mg PO HS 08/19/15 [History] Cetirizine HCl [All Day Allergy] 10 mg PO DAILY 12/22/15 [History] Atorvastatin [Lipitor] 10 mg PO HS 08/29/16 [History] Doxepin HCl 100 mg PO HS 08/29/16 [History] HYDROcodone/Acet 7.5/325 mg [[place] 7.5-325 mg] 1 tab PO BID PRN 08/29/16 [ History] Ipratropium/Albuterol Neb [Duoneb] 3 ml IH Q6HR PRN 08/29/16 [History] HydrOXYzine Pamoate [Vistaril] 50 mg PO BID PRN #30 capsule 12/14/16 [Rx] Orphenadrine [Norflex] 100 mg PO Q12HR PRN #14 tablet.er 12/19/16 [Rx] Fluticasone/Vilanterol [Breo Ellipta 100-25 Mcg INH] 1 each IH DAILY 12/23/16 [ History] Gabapentin [Neurontin] 600 mg PO QID 12/23/16 [History] Insulin Glargine,Hum.rec.anlog [Basaglar Kwikpen U-100] 36 unit SQ HS 12/23/16 [ History] Insulin LISPRO [Humalog Kwikpen U-100] 0 unit SQ TIDWM 12/23/16 [History] Levalbuterol Tartrate [Xopenex Hfa] 2 puff IH Q4H PRN 12/23/16 [History] Metformin HCl [Glucophage] 1,000 mg PO BID 12/23/16 [History] Ondansetron [Zofran] 8 mg PO Q8H PRN 12/23/16 [History] Sertraline [Zoloft] 50 mg PO DAILY 12/23/16 [History] diazePAM [Valium] 20 mg PO HS 12/23/16 [History] 3 Allergy/AdvReac Type Severity Reaction Status Date / Time morphine Allergy Unknown facial Verified 12/23/16 13:59 swelling, redness Penicillins Allergy Unknown Unknown Verified 12/23/16 13:59 pregabalin [From Lyrica] Allergy Unknown Blindness, Verified 12/23/16 13:59 Difficulty walking trazodone Allergy Unknown Tachycardia Verified 12/23/16 13:59 aspirin AdvReac Unknown nausea and Verified 12/23/16 13:59 vomiting sumatriptan [From Imitrex] AdvReac Unknown Disoriented Verified 12/23/16 13:59 All Systems: A 10-system review of systems was performed and is negative for pertinent findings except as documented above in the HPI. Physical Examination - Vital Signs Vital Signs: Initial Vital Signs Temp Pulse Resp BP Pulse Ox 97.6 F 98 18 110/75 96 12/23/16 13:39 12/23/16 13:39 12/23/16 13:39 12/23/16 13:39 12/23/16 13:39 - Constitutional General appearance: comfortable - Neurologic Detailed motor examination: grossly full strength in all extremities Motor examination - right side: 45: deltoids, biceps, triceps, wrist flexion, wrist extension, agricultural pilot, hip flexors, tibialis Anterior, quadriceps, toe extension (EHL) Motor examination - left side: 4/5: deltoids, biceps, triceps, wrist flexion, wrist extension, hip flexors, agricultural pilot, quadriceps, tibialis Anterior, toe extension (EHL), plantarflexion Detailed sensory examination: other (On sensory examination patient has a decrease to the pinprick in both lower extremities along with significant decrease in the movement of the both ankles.) Reflex and gait examination: other Reflexes: Biceps: 1+, Triceps: 1+, Brachioradialis: 1+, Patella: 1+, Achilles: 1 + Mental Status Examination: awake, alert, oriented to person, oriented to place, oriented to time, follows commands appropriately, follows simple commands, localizes noxious stimulation Cranial nerve examination: PERRL, EOMI, visual bhatt intact, no facial asymmetry is present, no dysarthria Cerebellar examination: no dysmetria Results - Laboratory Findings CBC and BMP: 12/24/16 02:40 12/24/16 02:40 Abnormal lab findings: Abnormal lab results WBC 15.6 K/mcL (4.3-11.1) H 12/24/16 02:40 MPV 8.7 fL (9.4-12.4) L 12/24/16 02:40 Neutrophils # 9.1 K/mcL (1.6-8.9) H 12/24/16 02:40 Lymphocytes # 4.8 K/mcL (0.6-4.6) H 12/24/16 02:40 APTT 37.4 Seconds (26.0-36.0) H 12/23/16 13:58 Glucose 111 mg/dL (70-99) H 12/24/16 02:40 POC Glucose 167 (58-89) H 12/23/16 22:25 Hemoglobin A1c 6.6 % (-5.6) H 12/24/16 02:40 Alkaline Phosphatase 141 Units/L (38-126) H 12/24/16 02:40 Albumin 3.3 g/dL (3.5-5.0) L 12/24/16 02:40 Globulin 3.7 g/dL (2.4-3.5) H 12/24/16 02:40 Albumin/Globulin Ratio 0.9 (1.1-2.2) L 12/24/16 02:40 Triglycerides 193 mg/dL (< 150) H 12/24/16 02:40 Cholesterol 202 mg/dL (< 200) H 12/24/16 02:40 LDL Cholesterol, Calc 101 mg/dL (0-99) H 12/24/16 02:40 VLDL Cholesterol, Calc 39 mg/dL (< 31) H 12/24/16 02:40 HDL Cholesterol 62 mg/dL (40-59) H 12/24/16 02:40 Urine Blood Trace (Negative) H 12/23/16 14:05 Ur Leukocyte Esterase Small (Negative) H 12/23/16 14:05 Urine Microscopic WBC 5-15 per hpf (0-3) H 12/23/16 14:05 Ur Squamous Epith Cells Many per lpf (None-Few) H 12/23/16 14:05 Ur Culture Indicated? YES (NO) A 12/23/16 14:05 - Diagnostic Findings Additional findings: MRI of the brain was reviewed and did not show any evidence of acute stroke. At the same time MRI of the cervical spine shows multilevel degenerative changes a straightening of the spine along with multiple levels of foraminal stenosis but no critical stenosis and no evidence of any abnormal signal in the cervical cord. Consult Discharge Plan - Plan Referrals: Kyle Moreno MD [Primary Care Provider] -
[2016-12-24 13:03] LABS: Folate 14.5 ng/mL (7.0-31.4)
[2016-12-24] MEDS ORDERED: lamoTRIgine 100 MG TABLET PO SCH (21:00)
[2016-12-25 04:24] LABS: Basophils # 0.1 K/mcL (0.0-0.2); Basophils % 0.7 %; Eosinophils # 0.2 K/mcL (0.0-0.6); Eosinophils % 1.2 %; Hematocrit 39.6 % (35.3-44.9); Immature Granulocytes % 2.1 % (0-4); Lymphocytes # 5.2 K/mcL (0.6-4.6); Lymphocytes % 38.1 %; Mean Corpuscular HGB Conc 32.8 g/dL (31.6-35.5); Mean Corpuscular Hemoglobin 29.2 pg (28.0-33.3); Mean Platelet Volume 8.7 fL (9.4-12.4); Monocytes % 7.1 %; Neutrophils # 6.9 K/mcL (1.6-8.9); Platelet Count 391 K/mcL (140-400); Red Blood Count 4.45 M/mcL (3.82-4.97); Red Cell Distribution Width 13.9 % (11.5-14.5); Segmented Neutrophils % 50.8 %
[2016-12-25 04:36] LABS: Alanine Aminotransferase 40 Units/L (0-55); Albumin 3.5 g/dL (3.5-5.0); Alkaline Phosphatase 140 Units/L (38-126); Aspartate Amino Transferase 27 Units/L (5-34); BUN/Creatinine Ratio 18 (6-26); Bilirubin,Total 0.3 mg/dL (0.2-1.2); Blood Urea Nitrogen 14 mg/dL (7-20); Carbon Dioxide 27 mEq/L (19-29); Chloride 104 mEq/L (98-109); Globulin 3.6 g/dL (2.4-3.5); Glucose 104 mg/dL (70-99); Osmolality,Calculated 291 (280-300); Sodium 140 mEq/L (136-145); Total Protein 7.1 g/dL (6.0-8.3); eGFR For African Americans > 60 (> 60); eGFR For Non-African Americans > 60 (> 60)
[2016-12-25] MEDS: *HR* HYDROcodone/Acet 7.5/325 mg TABLET PO PRN (06:12)
[2016-12-25] MEDS: *HR* Enoxaparin 40 MG/0.4 ML SYRINGE SQ SCH (06:12)
[2016-12-25 07:39] VITALS: BP 107/77
[2016-12-25] MEDS: Budesonide/Formoterol 160/4.5 MDI IH SCH (08:01)
[2016-12-25] MEDS: Insulin LISPRO 300 UNITS/3 ML VIAL SQ SCH ×2 (08:26)
[2016-12-25] MEDS: Gabapentin 300 MG CAPSULE PO SCH (08:51)
[2016-12-25] MEDS: Loratadine 10 MG TABLET PO SCH (08:51)
[2016-12-25] MEDS: cefTRIAXone 1,000 MG in Water for inj. (sterile) 10 ML IVP SCH (08:52)
[2016-12-25] MEDS: Nicotine 14 MG PATCH.TD24 TD SCH (08:52)
[2016-12-25] MEDS: Famotidine 20 MG TABLET PO SCH (08:52)
[2016-12-25] MEDS: Fluticasone Propionate Nasal 50 MCG/SPRAY BOTTLE NS SCH (08:54)
[2016-12-25] MEDS: [Breo Ellipta 100-25 Mcg IH SCH (08:55)
--- NOTE | 2016-12-25 09:10 | Discharge Summary ---
Date of Encounter: 12/25/16 Time of Encounter: 09:08 - Discharge Diagnosis (1) Community acquired pneumonia Priority: Primary Status: Acute Comments: Generalized severe weakness secondary to community-acquired pneumonia Chest x-ray showed a left lower lobe opacity/infiltrate Qualifiers: Laterality: left Lung location: lower lobe of lung Qualified Code(s): J18.1 - Lobar pneumonia, unspecified organism (2) Right sided weakness Priority: Primary Status: Acute Comments: Unclear etiology, was very symptomatic but is a lot better today MRI of the cervical spine shows diffuse mild bilateral foraminal narrowing from C3-C6 Neurology and Dr. Dent were consulted Fall precautions (3) Leucocytosis Priority: Secondary Status: Acute Qualifiers: Leukocytosis type: other Qualified Code(s): D72.828 - Other elevated white blood cell count (4) Frequent falls Priority: Secondary Status: Acute (5) Ataxia Priority: Secondary Status: Acute (6) Diabetes Priority: Secondary Status: Chronic Qualifiers: Diabetes mellitus type: type 2 Diabetes mellitus complication status: with unspecified complications Diabetes mellitus sap abap developer insulin use: with sap abap developer use Qualified Code(s): E11.8 - Type 2 diabetes mellitus with unspecified complications; Z79.4 - detention (current) use of insulin; Z79.4 - detention ( current) use of insulin; Z79.4 - detention (current) use of insulin; 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 (7) GERD (gastroesophageal reflux disease) Priority: Secondary Status: Chronic Qualifiers: Esophagitis presence: esophagitis presence not specified Qualified Code(s) : K21.9 - Gastro-esophageal reflux disease without esophagitis (8) HLD (hyperlipidemia) Priority: Secondary Status: Chronic Qualifiers: Hyperlipidemia type: pure hypercholesterolemia Qualified Code(s): E78.00 - Pure hypercholesterolemia, unspecified; E78.0 - Pure hypercholesterolemia - Discharge Medications Prescriptions: Cefdinir [Omnicef] 300 mg PO BID #10 capsule Home Medications: Budesonide/Formoterol 160/4.5 [Symbicort 160/4.5] 2 puff IH BIDR 08/19/15 [ History] Ergocalciferol (VITAMIN D2) [Drisdol (50,000 Unit)] 50,000 unit PO TH 08/19/15 [ History] Fluticasone Propionate Nasal [Flonase] 50 mcg NS DAILY 08/19/15 [History] Montelukast [Singulair] 10 mg PO HS 08/19/15 [History] Ranitidine HCl [Zantac] 300 mg PO DAILY 08/19/15 [History] diazePAM [Valium] 10 mg PO QAM 08/19/15 [History] lamoTRIgine [Lamictal] 200 mg PO HS 08/19/15 [History] Cetirizine HCl [All Day Allergy] 10 mg PO DAILY 12/22/15 [History] Atorvastatin [Lipitor] 10 mg PO HS 08/29/16 [History] Doxepin HCl 100 mg PO HS 08/29/16 [History] HYDROcodone/Acet 7.5/325 mg [[place] 7.5-325 mg] 1 tab PO BID PRN 08/29/16 [ History] Ipratropium/Albuterol Neb [Duoneb] 3 ml IH Q6HR PRN 08/29/16 [History] HydrOXYzine Pamoate [Vistaril] 50 mg PO BID PRN #30 capsule 12/14/16 [Rx] Orphenadrine [Norflex] 100 mg PO Q12HR PRN #14 tablet.er 12/19/16 [Rx] Fluticasone/Vilanterol [Breo Ellipta 100-25 Mcg INH] 1 each IH DAILY 12/23/16 [ History] Gabapentin [Neurontin] 600 mg PO QID 12/23/16 [History] Insulin Glargine,Hum.rec.anlog [Basaglar Kwikpen U-100] 36 unit SQ HS 12/23/16 [ History] Insulin LISPRO [Humalog Kwikpen U-100] 0 unit SQ TIDWM 12/23/16 [History] Levalbuterol Tartrate [Xopenex Hfa] 2 puff IH Q4H PRN 12/23/16 [History] Metformin HCl [Glucophage] 1,000 mg PO BID 12/23/16 [History] Ondansetron [Zofran] 8 mg PO Q8H PRN 12/23/16 [History] Sertraline [Zoloft] 50 mg PO DAILY 12/23/16 [History] diazePAM [Valium] 20 mg PO HS 12/23/16 [History] Cefdinir [Omnicef] 300 mg PO BID #10 capsule 12/25/16 [Rx] Allergies/Adverse Reactions: 3 Allergy/AdvReac Type Severity Reaction Status Date / Time morphine Allergy Unknown facial Verified 12/23/16 13:59 swelling, redness Penicillins Allergy Unknown Unknown Verified 12/23/16 13:59 pregabalin [From Lyrica] Allergy Unknown Blindness, Verified 12/23/16 13:59 Difficulty walking trazodone Allergy Unknown Tachycardia Verified 12/23/16 13:59 aspirin AdvReac Unknown nausea and Verified 12/23/16 13:59 vomiting sumatriptan [From Imitrex] AdvReac Unknown Disoriented Verified 12/23/16 13:59 Procedures/tests Complete & Pending: Procedures Performed prior 72 hours Category Date Time Status EV carotid duplex imaging BI Routine Y 12/24/16 22:05 Completed Date of admission: 12/23/16 15:43 Primary care physician: Kyle Moreno MD Consults: 12/23/16 22:01 Consult to Visual Merchandising Specialist [CONS] Routine Reason for SW Consult: Please assess patient for possible home needs for post -discharge planning. 12/23/16 22:02 Consult to Occupational Therapy [CONS] Routine Comment: Evaluate, develop and implement POC Reason for Consult: Patient has problems w/ambulation as she falls to the right d/t weakness. Please assess for strength, stability, safety, ambulation, and possible assistive needs for post-discharge planning. 12/23/16 22:03 Consult to Physical Therapy [CONS] Routine Comment: Evaluate, develop and implement POC Reason for Consult: Patient has problems w/ambulation as she falls to the right d/t weakness. Please assess for strength, stability, safety, ambulation, and possible assistive needs for post-discharge planning. 12/24/16 08:57 Consult to Surgery [CONS] Routine Consulting Provider: Aldo Dent Jr Reason for Consult: right foraminal stenosis C3-6 Call Completed: Yes - Patient Status Disposition: Home Health Service Condition: Good Overall status at discharge: patient is back to baseline - Discharge Instructions Follow Up With: Kyle Moreno MD [Primary Care Provider] - Additional Instructions: Follow-up with primary care physician within the next 7 days. Follow up with neurology within the next 2 weeks. May follow-up with orthopedic/spine surgery within the next 2 weeks. Continue Cefdinir for 5 more days. Fall precautions. Quit smoking - Diet and Activity Activity: increase activity as tolerated Diet: diabetic diet Hospital course: Ms. Conde is a 41 year old female with medica hx of asthma, diabetes controlled with oral hypoglycemic agents and insulin, GERD, tobacco use and hyperlipidemia presented to the ED with a chief complaint of right-sided weakness, falls and ataxia for the past 2-3 months, worse in the past few days. Patient was seen at neurology office and was sent to the ED due to instability and disequilibrium. Patient stated she felt unsteady on her feet. Reported mild SOB requiring O2 at night but denied recent illness, fever, chills, nausea, vomiting, headache, changes in vision, unusual bleeding, chest pain, palpitations, abdominal pain, constipation, diarrhea, lightheadedness, dizziness , pre-syncope, or syncope. MRI of the cervical spine shows diffuse mild bilateral foraminal narrowing from C3-C6. Was evaluated by neurology, her symptoms suggest possible myelopathy. Electromyography will have to be performed as an outpatient. The patient's white blood cell count was 22.2, chest x-ray was performed and showed left lower lobe opacity/pneumonia, Rocephin was started. The patient has improved considerably and her strength in the right upper extremity and right lower extremity have gone back to normal. Patient was given the option to wait and see Dr. Dent today but she prefers to be discharged and follow- up as an outpatient. Risk of falling were explained Time spent discussing smoking cessation with patient: 3 to 10 minutes - Time Spent with Patient Total time spent providing and/or coordinating discharge services: Greater than 30 minutes (40 min) - Constitutional Vitals: Temp Pulse Resp BP Pulse Ox 97.5 F L 87 16 107/77 97 12/25/16 07:38 12/25/16 07:38 12/25/16 08:01 12/25/16 07:38 12/25/16 08:01 General appearance: Present: cooperative, A&O X 3, pleasant, no acute distress, obese, answers questions appropriately - Head Head exam: Present: atraumatic, normocephalic - Eye Eye exam: Present: PERRL, conjuntiva pink, sclera anicteric Pupils: Present: PERRL - Neck Neck exam general surgery: Present: supple, trachea midline. Absent: lymphadenopathy - Respiratory Respiratory exam: Present: CTAB. Absent: accessory muscle use, rales, rhonchi, wheezes - Cardiovascular Cardiovascular exam: Present: RRR, +S1, +S2. Absent: diastolic murmur, gallop, rubs, systolic murmur - GI/Abdominal GI/Abdominal exam: Present: normal bowel sounds, soft, no peritoneal signs. Absent: distended, tenderness - Extremities Exam Extremities exam: Present: warm, radial pulses palpable and symmetrical. Absent : calf tenderness, cyanotic, pedal edema - Neurological Exam Neurological exam: Present: CN II-XII intact, oriented X3. Absent: no focal deficits, pronater drift, facial droop, speech deficit Additional comments: Minimal right upper and lower extremities, much improved from admission - Skin Skin exam: Present: dry, intact
--- NOTE | 2016-12-25 09:22 | Physician Discharge Referral ---
Home Health/Hosp Referral Info Transfer to: Home Health Provider in Charge Post Discharge: PCP - Diagnosis (1) Community acquired pneumonia Status: Acute (2) Right sided weakness Status: Acute (3) Leucocytosis Status: Acute (4) Frequent falls Status: Acute (5) Ataxia Status: Acute (6) Diabetes Status: Chronic (7) GERD (gastroesophageal reflux disease) Status: Chronic (8) HLD (hyperlipidemia) Status: Chronic - Respiratory Orders Smoking Cessation: Smoking cessation has been advised. For more information, call the [place] Tobacco Quit Line at 1-174-HXOC-NOW. - Services Needed Following services are medically necessary services: Home Health Aide, Physical Therapy, Occupational Therapy Home Care Orders: Follow-up with primary care physician within the next 7 days. Follow up with neurology within the next 2 weeks. May follow-up with orthopedic/spine surgery within the next 2 weeks. Continue Cefdinir for 5 more days. Fall precautions. Quit smoking - Transfer Medications Prescriptions: Cefdinir [Omnicef] 300 mg PO BID #10 capsule Home Medications: Budesonide/Formoterol 160/4.5 [Symbicort 160/4.5] 2 puff IH BIDR 08/19/15 [ History] Ergocalciferol (VITAMIN D2) [Drisdol (50,000 Unit)] 50,000 unit PO TH 08/19/15 [ History] Fluticasone Propionate Nasal [Flonase] 50 mcg NS DAILY 08/19/15 [History] Montelukast [Singulair] 10 mg PO HS 08/19/15 [History] Ranitidine HCl [Zantac] 300 mg PO DAILY 08/19/15 [History] diazePAM [Valium] 10 mg PO QAM 08/19/15 [History] lamoTRIgine [Lamictal] 200 mg PO HS 08/19/15 [History] Cetirizine HCl [All Day Allergy] 10 mg PO DAILY 12/22/15 [History] Atorvastatin [Lipitor] 10 mg PO HS 08/29/16 [History] Doxepin HCl 100 mg PO HS 08/29/16 [History] HYDROcodone/Acet 7.5/325 mg [[place] 7.5-325 mg] 1 tab PO BID PRN 08/29/16 [ History] Ipratropium/Albuterol Neb [Duoneb] 3 ml IH Q6HR PRN 08/29/16 [History] HydrOXYzine Pamoate [Vistaril] 50 mg PO BID PRN #30 capsule 12/14/16 [Rx] Orphenadrine [Norflex] 100 mg PO Q12HR PRN #14 tablet.er 12/19/16 [Rx] Fluticasone/Vilanterol [Breo Ellipta 100-25 Mcg INH] 1 each IH DAILY 12/23/16 [ History] Gabapentin [Neurontin] 600 mg PO QID 12/23/16 [History] Insulin Glargine,Hum.rec.anlog [Basaglar Kwikpen U-100] 36 unit SQ HS 12/23/16 [ History] Insulin LISPRO [Humalog Kwikpen U-100] 0 unit SQ TIDWM 12/23/16 [History] Levalbuterol Tartrate [Xopenex Hfa] 2 puff IH Q4H PRN 12/23/16 [History] Metformin HCl [Glucophage] 1,000 mg PO BID 12/23/16 [History] Ondansetron [Zofran] 8 mg PO Q8H PRN 12/23/16 [History] Sertraline [Zoloft] 50 mg PO DAILY 12/23/16 [History] diazePAM [Valium] 20 mg PO HS 12/23/16 [History] Cefdinir [Omnicef] 300 mg PO BID #10 capsule 12/25/16 [Rx] Allergies/Adverse Reactions: 3 Allergy/AdvReac Type Severity Reaction Status Date / Time morphine Allergy Unknown facial Verified 12/23/16 13:59 swelling, redness Penicillins Allergy Unknown Unknown Verified 12/23/16 13:59 pregabalin [From Lyrica] Allergy Unknown Blindness, Verified 12/23/16 13:59 Difficulty walking trazodone Allergy Unknown Tachycardia Verified 12/23/16 13:59 aspirin AdvReac Unknown nausea and Verified 12/23/16 13:59 vomiting sumatriptan [From Imitrex] AdvReac Unknown Disoriented Verified 12/23/16 13:59 Certification: Further, I certify that my clinical findings support that this patient is homebound (i.e. absences from home require considerable and taxing effort and are for medical reasons or anglican services or infrequently or short duration when for other reasons) because: Homebound Reason: Patient requires assistance of a person or device to safely leave home Attestation: My signature below is to certify that this patient is under my care and that I, or nurse practitioner, or a physician's certified surgical assistant working with me, has a face-to -face encounter with this patient.
--- NOTE | 2016-12-25 13:37 | Electrocardiograph Report ---
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
== END 2016-12-25 10:05 | disposition home health service (06) ==
LOC: 3BNU 13:38 → EMEROO 13:38 → SUATTDRO 15:43 → 3BNU 16:43
PROVIDERS: ADMIT Internal Medicine; ATTEND Internal Medicine

== ENCOUNTER 2018-08-23 12:08 | Observation (INO) ==
--- NOTE | 2018-08-23 12:23 | Emergency Department Note ---
Disposition Clinical Impression: COPD exacerbation Disposition: Admitted As Inpatient Condition: Good Forms: ED Satisfaction Letter Time of Disposition: 15:45 General Adult HPI - General Chief complaint: ED Shortness of Breath/Dyspnea Stated complaint: pneumonia Time Seen by Provider: 08/23/18 12:12 Source: patient Limitations: no limitations Nursing Notes Reviewed: Yes Vital Signs Reviewed: Yes - History of Present Illness HPI Narrative: 42 year old female with concern for cough, subjective fever, nausea. PAtient with history of possible asthma COPD, with recent hospitalization for pneumonia and reactive airway disease. States that she is having chest tightness down the sternum and along the sides of her ribs. She states that she has been taking doxycycline for a pneumonia that was detected after a bronchoscopy. Pain Scale: 10 - Related Data Home Medications Medication Instructions Recorded Confirmed diazePAM [Valium] 10 mg PO BID PRN 08/19/15 08/23/18 Insulin Glargine,Hum.rec.anlog 30 unit SQ HS 12/23/16 08/23/18 [Basaglkarthik Camargo U-100] Atorvastatin Calcium [Lipitor] 40 mg PO HS 01/26/18 08/23/18 Cetirizine HCl [Zyrtec] 10 mg PO DAILY 01/26/18 08/23/18 Furosemide [Lasix] 20 mg PO DAILY PRN 01/26/18 08/23/18 Ramelteon [Rozerem] 8 mg PO HS 01/26/18 08/23/18 Albuterol Sulfate [Proventil 2 puff IH Q4H PRN 08/15/18 08/23/18 Inhaler] Budesonide/Formoterol 160/4.5 2 puff IH BIDR 08/15/18 08/23/18 [Symbicort 160/4.5] Doxepin HCl 200 mg PO HS 08/15/18 08/23/18 Ergocalciferol (VITAMIN D2) 50,000 unit PO TH 08/15/18 08/23/18 [Vitamin D2] Flunisolide 2 spray NS BID 08/15/18 08/23/18 Insulin LISPRO [Admelog Solostar] 8 - 16 unit SQ TIDAC 08/15/18 08/23/18 Levomilnacipran HCl [Fetzima] 40 mg PO DAILY 08/15/18 08/23/18 Metformin HCl 1,000 mg PO BID 08/15/18 08/23/18 Ondansetron ODT [Zofran ODT] 4 - 8 mg SL Q8H PRN 08/15/18 08/23/18 Oxycodone HCl 5 mg PO DAILY PRN 08/15/18 08/23/18 Previous Rx's Medication Instructions Recorded Cefdinir [Omnicef] 300 mg PO BID #14 capsule 08/17/18 PredniSONE [Deltasone] 40 mg PO DAILY #11 tablet 08/17/18 Allergies Allergy/AdvReac Type Severity Reaction Status Date / Time morphine Allergy Unknown facial Verified 07/12/18 10:46 swelling, redness Penicillins Allergy Unknown Unknown Verified 07/12/18 10:46 pregabalin [From Lyrica] Allergy Unknown Blindness, Verified 07/12/18 10:46 Difficulty walking trazodone Allergy Unknown Tachycardia Verified 07/12/18 10:46 aspirin AdvReac Unknown nausea and Verified 07/12/18 10:46 vomiting sumatriptan [From Imitrex] AdvReac Unknown Disoriented Verified 07/12/18 10:46 All systems ED: reviewed and negative except as stated. Review of Systems: As Per HPI Constitutional: Reports: fever Cardiovascular: Reports: chest pain Respiratory: Reports: cough, dyspnea. Denies: wheezes Gastrointestinal: Reports: nausea. Denies: abdominal pain, vomiting Genitourinary: Denies: urgency, dysuria, frequency Musculoskeletal: Denies: back pain Past Medical History - Past Medical History Attestation: Yes The following information was validated with the patient. 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 Absent: respiratory distress - Cardiovascular Cardiovascular exam: Present: regular rate, normal rhythm - Abdominal Exam Abdominal exam: Present: soft, Non-Tender. Absent: distention, guarding, rebound, rigidity - Extremities Exam Extremities exam: Present: normal capillary refill. Absent: calf tenderness - Back Exam Back exam: Present: full ROM - Neurological Exam Neurological exam: Present: alert, oriented X3 - Psychiatric Psychiatric exam: Present: normal affect, normal mood - Skin Skin exam: Present: warm, dry, intact, normal color. Absent: rash Course Vital Signs Temperature 98.0 F 08/23/18 12:11 Pulse Rate 90 08/23/18 12:11 Respiratory Rate 18 08/23/18 12:11 Blood Pressure 99/62 08/23/18 12:11 O2 Sat by Pulse Oximetry 94 08/23/18 12:11 Temperature 98.0 F 08/23/18 12:11 Pulse Rate 79 08/23/18 15:00 Respiratory Rate 22 08/23/18 15:00 Blood Pressure 95/58 08/23/18 15:00 O2 Sat by Pulse Oximetry 92 08/23/18 15:05 Oxygen Delivery Oxygen Delivery Room Air Medical Decision Making - MDM Narrative Medical decision making narrative: 42-year-old female presents emergency department with concern for coughing, chest pain. At this time, lungs are clear bilaterally, there is no evidence of wheezing. However, we will give her DuoNeb and steroids here. We will obtain chest x-ray. Patient had elevated d-dimer. With the CT angiogram. Reveal possible pneumonia versus atelectasis. Spoke with pulmonology, who came down to the bedside to evaluate patient. Recommended that we admit patient to the hospital for observation. Patient does have elevated leukocytosis, but no evidence of fever here, nor tachycardia, and has recently been on steroids which could explain it. No recommendations for change in the course of any antimicrobials at this time. Patient feeling better after receiving medications. Still coughing at time of admission. Chest X-Ray 08/23/18 12:28 IMPRESSION: Linear atelectasis at the left lung base is stable. Otherwise no acute abnormality. D/ / Rober Holloway MD / Rober Holloway MD Interpreting Provider: Rober Holloway MD Chest CTA 08/23/18 13:20 IMPRESSION: 1. No evidence of pulmonary embolism. 2. Mildly prominent nonspecific right hilar node. 3. Lingular and bibasilar linear opacities may represent atelectasis or infiltrate. D/ / 08/23/2018 14:18:47 Alejandra Miles MD / nixon Interpreting Provider: Alejandra Miles MD - Lab Data Result diagrams: 08/23/18 12:52 08/23/18 12:52 Lab Results 08/23/18 08/23/18 08/23/18 Range/Units 12:52 12:52 12:52 WBC 19.6 H (4.3-11.1) K/mcL RBC 4.08 (3.82-4.97) M/mcL Hgb 11.7 (11.5-15.4) g/dL Hct 36.6 (35.3-44.9) % MCV 89.7 (83.0-100.0) fL MCH 28.7 (28.0-33.3) pg MCHC 32.0 (31.6-35.5) g/dL RDW 16.1 H (11.5-14.5) % Plt Count 349 (140-400) K/mcL MPV 8.1 L (9.4-12.4) fL Seg Neutrophils % 46.0 % Lymphocytes % 44.0 % Monocytes % 8.0 % Eosinophils % 2.0 % Metamyelocytes % Test Not Performed Neutrophils # 9.0 H (1.6-8.9) K/mcL Lymphocytes # 8.6 H (0.6-4.6) K/mcL Monocytes # 1.6 H (0.0-1.3) K/mcL Eosinophils # 0.4 (0.0-0.6) K/mcL Platelet Estimate Normal (Normal) D-Dimer (0-500) ng/mLFEU Sodium 138 (136-145) mEq/L Potassium 3.6 (3.5-5.1) mEq/L Chloride 101 (98-107) mEq/L Carbon Dioxide 29 (23-29) mEq/L BUN 16 (6-20) mg/dL Creatinine 1.00 (0.60-1.20) mg/dL Est GFR ( Amer) > 60 (> 60) Est GFR (Non-Af Amer) > 60 (> 60) BUN/Creatinine Ratio 16 (6-26) Glucose 94 (70-105) mg/dL Calculated Osmolality 287 (280-300) Lactic Acid 1.2 (0.5-2.2) mmol/L Calcium 8.9 (8.6-10.3) mg/dL Troponin I (< 0.04) ng/mL B-Natriuretic Peptide (Less than 100) pg/mL 08/23/18 08/23/18 08/23/18 Range/Units 12:52 12:52 12:52 WBC (4.3-11.1) K/mcL RBC (3.82-4.97) M/mcL Hgb (11.5-15.4) g/dL Hct (35.3-44.9) % MCV (83.0-100.0) fL MCH (28.0-33.3) pg MCHC (31.6-35.5) g/dL RDW (11.5-14.5) % Plt Count (140-400) K/mcL MPV (9.4-12.4) fL Seg Neutrophils % % Lymphocytes % % Monocytes % % Eosinophils % % Metamyelocytes % Neutrophils # (1.6-8.9) K/mcL Lymphocytes # (0.6-4.6) K/mcL Monocytes # (0.0-1.3) K/mcL Eosinophils # (0.0-0.6) K/mcL Platelet Estimate (Normal) D-Dimer 1237 H (0-500) ng/mLFEU Sodium (136-145) mEq/L Potassium (3.5-5.1) mEq/L Chloride (98-107) mEq/L Carbon Dioxide (23-29) mEq/L BUN (6-20) mg/dL Creatinine (0.60-1.20) mg/dL Est GFR ( Amer) (> 60) Est GFR (Non-Af Amer) (> 60) BUN/Creatinine Ratio (6-26) Glucose (70-105) mg/dL Calculated Osmolality (280-300) Lactic Acid (0.5-2.2) mmol/L Calcium (8.6-10.3) mg/dL Troponin I < 0.03 (< 0.04) ng/mL B-Natriuretic Peptide 112 H (Less than 100) pg/mL - EKG Data EKG #1 EKG attestation: Yes I reviewed and interpreted this EKG. EKG results narrative: 1219 Heart 75 bpm, ND 134 ms, QRS duration 98 ms, QT 496 months seconds, normal axis. Sinus rhythm with flattened T waves in the lateral leads. No evidence of any ischemic ST changes when in comparison to previous ECG.
--- NOTE | 2018-08-23 12:24 | Emergency Department Note ---
Disposition Clinical Impression: COPD exacerbation Disposition: Admitted As Inpatient Condition: Good Referrals: Kyle Moreno MD [Primary Care Provider] - Forms: ED Satisfaction Letter Time of Disposition: 16:57 General Adult HPI - General Chief complaint: ED Shortness of Breath/Dyspnea Stated complaint: pneumonia Time Seen by Provider: 08/23/18 12:12 Source: patient Limitations: no limitations - History of Present Illness Pain Scale: 10 - Related Data Home Medications Medication Instructions Recorded Confirmed diazePAM [Valium] 10 mg PO BID PRN 08/19/15 08/23/18 Insulin Glargine,Hum.rec.anlog 30 unit SQ HS 12/23/16 08/23/18 [Basaglar Kwikpen U-100] Atorvastatin Calcium [Lipitor] 40 mg PO HS 01/26/18 08/23/18 Cetirizine HCl [Zyrtec] 10 mg PO DAILY 01/26/18 08/23/18 Furosemide [Lasix] 20 mg PO DAILY PRN 01/26/18 08/23/18 Ramelteon [Rozerem] 8 mg PO HS 01/26/18 08/23/18 Albuterol Sulfate [Proventil 2 puff IH Q4H PRN 08/15/18 08/23/18 Inhaler] Budesonide/Formoterol 160/4.5 2 puff IH BIDR 08/15/18 08/23/18 [Symbicort 160/4.5] Doxepin HCl 200 mg PO HS 08/15/18 08/23/18 Ergocalciferol (VITAMIN D2) 50,000 unit PO TH 08/15/18 08/23/18 [Vitamin D2] Flunisolide 2 spray NS BID 08/15/18 08/23/18 Insulin LISPRO [Admelog Solostar] 8 - 16 unit SQ TIDAC 08/15/18 08/23/18 Levomilnacipran HCl [Fetzima] 40 mg PO DAILY 08/15/18 08/23/18 Metformin HCl 1,000 mg PO BID 08/15/18 08/23/18 Ondansetron ODT [Zofran ODT] 4 - 8 mg SL Q8H PRN 08/15/18 08/23/18 Oxycodone HCl 5 mg PO DAILY PRN 08/15/18 08/23/18 Previous Rx's Medication Instructions Recorded Cefdinir [Omnicef] 300 mg PO BID #14 capsule 08/17/18 PredniSONE [Deltasone] 40 mg PO DAILY #11 tablet 08/17/18 Allergies Allergy/AdvReac Type Severity Reaction Status Date / Time morphine Allergy Unknown facial Verified 07/12/18 10:46 swelling, redness Penicillins Allergy Unknown Unknown Verified 07/12/18 10:46 pregabalin [From Lyrica] Allergy Unknown Blindness, Verified 07/12/18 10:46 Difficulty walking trazodone Allergy Unknown Tachycardia Verified 07/12/18 10:46 aspirin AdvReac Unknown nausea and Verified 07/12/18 10:46 vomiting sumatriptan [From Imitrex] AdvReac Unknown Disoriented Verified 07/12/18 10:46 Past Medical History - Past Medical History Medical history: Reports: asthma, COPD, CVA, diabetes, GERD, hyperlipidemia, hypertension, other Surgical history: Reports: hysterectomy, knee replacement Psychiatric history: Reports: anxiety, depression 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 - Social History Smoking Status: Current every day smoker Smokeless Tobacco Status: No Alcohol use: Reports: none Drug use: Reports: none Physical Exam - General Limitations: no limitations General appearance: alert, in no apparent distress Course Vital Signs Temperature 98.0 F 08/23/18 12:11 Pulse Rate 90 08/23/18 12:11 Respiratory Rate 18 08/23/18 12:11 Blood Pressure 99/62 08/23/18 12:11 O2 Sat by Pulse Oximetry 94 08/23/18 12:11 Temperature 98.0 F 08/23/18 12:11 Pulse Rate 78 08/23/18 16:06 Respiratory Rate 20 08/23/18 16:06 Blood Pressure 111/76 08/23/18 16:06 O2 Sat by Pulse Oximetry 96 08/23/18 16:06 Oxygen Delivery Oxygen Delivery Nasal Cannula Medical Decision Making - Lab Data Result diagrams: 08/23/18 12:52 08/23/18 12:52 Lab Results 08/23/18 08/23/18 08/23/18 Range/Units 12:52 12:52 12:52 WBC 19.6 H (4.3-11.1) K/mcL RBC 4.08 (3.82-4.97) M/mcL Hgb 11.7 (11.5-15.4) g/dL Hct 36.6 (35.3-44.9) % MCV 89.7 (83.0-100.0) fL MCH 28.7 (28.0-33.3) pg MCHC 32.0 (31.6-35.5) g/dL RDW 16.1 H (11.5-14.5) % Plt Count 349 (140-400) K/mcL MPV 8.1 L (9.4-12.4) fL Seg Neutrophils % 46.0 % Lymphocytes % 44.0 % Monocytes % 8.0 % Eosinophils % 2.0 % Metamyelocytes % Test Not Performed Neutrophils # 9.0 H (1.6-8.9) K/mcL Lymphocytes # 8.6 H (0.6-4.6) K/mcL Monocytes # 1.6 H (0.0-1.3) K/mcL Eosinophils # 0.4 (0.0-0.6) K/mcL Platelet Estimate Normal (Normal) D-Dimer (0-500) ng/mLFEU Sodium 138 (136-145) mEq/L Potassium 3.6 (3.5-5.1) mEq/L Chloride 101 (98-107) mEq/L Carbon Dioxide 29 (23-29) mEq/L BUN 16 (6-20) mg/dL Creatinine 1.00 (0.60-1.20) mg/dL Est GFR ( Amer) > 60 (> 60) Est GFR (Non-Af Amer) > 60 (> 60) BUN/Creatinine Ratio 16 (6-26) Glucose 94 (70-105) mg/dL Calculated Osmolality 287 (280-300) Lactic Acid 1.2 (0.5-2.2) mmol/L Calcium 8.9 (8.6-10.3) mg/dL Troponin I (< 0.04) ng/mL B-Natriuretic Peptide (Less than 100) pg/mL 08/23/18 08/23/18 08/23/18 Range/Units 12:52 12:52 12:52 WBC (4.3-11.1) K/mcL RBC (3.82-4.97) M/mcL Hgb (11.5-15.4) g/dL Hct (35.3-44.9) % MCV (83.0-100.0) fL MCH (28.0-33.3) pg MCHC (31.6-35.5) g/dL RDW (11.5-14.5) % Plt Count (140-400) K/mcL MPV (9.4-12.4) fL Seg Neutrophils % % Lymphocytes % % Monocytes % % Eosinophils % % Metamyelocytes % Neutrophils # (1.6-8.9) K/mcL Lymphocytes # (0.6-4.6) K/mcL Monocytes # (0.0-1.3) K/mcL Eosinophils # (0.0-0.6) K/mcL Platelet Estimate (Normal) D-Dimer 1237 H (0-500) ng/mLFEU Sodium (136-145) mEq/L Potassium (3.5-5.1) mEq/L Chloride (98-107) mEq/L Carbon Dioxide (23-29) mEq/L BUN (6-20) mg/dL Creatinine (0.60-1.20) mg/dL Est GFR ( Amer) (> 60) Est GFR (Non-Af Amer) (> 60) BUN/Creatinine Ratio (6-26) Glucose (70-105) mg/dL Calculated Osmolality (280-300) Lactic Acid (0.5-2.2) mmol/L Calcium (8.6-10.3) mg/dL Troponin I < 0.03 (< 0.04) ng/mL B-Natriuretic Peptide 112 H (Less than 100) pg/mL Attestation Statement - Attestation Attestation: I reviewed the residents documentation and agree with the residents assessment and plan of care. I have personally had face to face time with the patient. (Brief History, Brief Exam, and MDM) I personally supervised and was present for the tompkins/critical portions of the following procedures completed by the resident: (add procedures performed here). [id number] time provided Patient presents with dyspnea. She was recently admitted for pneumonia. Patient appears mildly anxious on exam. Triage note and vitals reviewed by me
[2018-08-23] MEDS ORDERED: Ipratropium/Albuterol Neb 3 ML IH ONE (12:25)
[2018-08-23] MEDS ORDERED: predniSONE 20 MG TABLET PO ONE (12:25)
[2018-08-23] MEDS ORDERED: Benzonatate 100 MG CAPSULE PO STA (12:36)
[2018-08-23] MEDS ORDERED: Ondansetron 4 MG/2 ML VIAL IVP STA (12:37)
[2018-08-23] MEDS ORDERED: *HR* FentaNYL (PF) 100 MCG/2 ML VIAL IVP ONE (12:37)
[2018-08-23 13:07] LABS: Hematocrit 36.6 % (35.3-44.9); Hemoglobin 11.7 g/dL (11.5-15.4); Mean Corpuscular Hemoglobin 28.7 pg (28.0-33.3); Mean Corpuscular Volume 89.7 fL (83.0-100.0); Mean Platelet Volume 8.1 fL (9.4-12.4); Platelet Count 349 K/mcL (140-400); Red Blood Count 4.08 M/mcL (3.82-4.97); Red Cell Distribution Width 16.1 % (11.5-14.5); White Blood Count 19.6 K/mcL (4.3-11.1)
[2018-08-23] MEDS ORDERED: Isovue-370 500 ML BOTTLE IVP ONE (13:20)
[2018-08-23 13:22] LABS: BUN/Creatinine Ratio 16 (6-26); Blood Urea Nitrogen 16 mg/dL (6-20); Calcium 8.9 mg/dL (8.6-10.3); Carbon Dioxide 29 mEq/L (23-29); Chloride 101 mEq/L (98-107); Glucose 94 mg/dL (70-105); Osmolality,Calculated 287 (280-300); Potassium 3.6 mEq/L (3.5-5.1); Sodium 138 mEq/L (136-145); eGFR For African Americans > 60 (> 60); eGFR For Non-African Americans > 60 (> 60)
[2018-08-23 13:36] LABS: Platelet Estimate Normal (Normal)
[2018-08-23 13:52] LABS: Lymphocytes # 8.6 K/mcL (0.6-4.6)
[2018-08-23 13:54] LABS: Eosinophils # 0.4 K/mcL (0.0-0.6); Monocytes # 1.6 K/mcL (0.0-1.3)
[2018-08-23] MEDS ORDERED: Ondansetron 4 MG/2 ML VIAL IVP PRN (16:05)
[2018-08-23] MEDS ORDERED: Mag Hydrox/Al Hydrox/Simeth 30 ML UDC PO PRN (16:07)
[2018-08-23] MEDS ORDERED: Naloxone 0.4 MG/ML INJ IVP PRN (16:07)
[2018-08-23] MEDS ORDERED: *HR* OxyCODONE Immed Rel 5 MG TABLET PO STA (16:07)
[2018-08-23] MEDS ORDERED: Acetaminophen 325 MG TABLET PO PRN (16:07)
[2018-08-23] MEDS ORDERED: D5% in Water 1,000 ML IVC PRN (16:08)
[2018-08-23] MEDS ORDERED: *HR* Dextrose 50 % in Water (Syg) 50 ML SYRINGE IVP PRN (16:08)
[2018-08-23] MEDS ORDERED: Dextrose Gel 15 GM/37.5 ML TUBE PO PRN ×2 (16:08)
--- NOTE | 2018-08-23 16:13 | Internal Med History&Physical ---
Date of Encounter: 08/23/18 Time of Encounter: 16:10 Internal Medicine - H&P: HPI Chief complaint: Cough and shortness of breath Admitted From: Emergency Dept Plans for Post Hospital Care: Home History of present illness: Ms. Conde is a 42 year old female with history of COPD on 2 L nasal cannula at night, as well as, GERD, hyperlipidemia, anxiety who presents with persistent cough and shortness of breath. The patient was recently discharged from here on 08/17 due to pneumonia and was discharged on cefdinir. At the time she had bronchoscopy and BAL was done and was negative. She says she was not completely at baseline when she was discharged but she wanted to be discharged as she did not want to stay here over the weekend. Since she left she has had continued fevers although also subjective, chills, and sweats. She has had a cough that is productive of yellowish to greenish sputum. She has had significant cough spells has noted some streaks of blood sometimes. When she came to the ED she was noted to have leukocytosis but she was on prednisone taper. She was noted to have a heart rate up to 105 at times. She was tachypneic into the 20s. D dimers were noted to be elevated and CT of chest was done which showed similar pneumonia. Patient denies any headache, blurry vision, nausea, vomiting, diz ziness, abdominal pain, diarrhea, constipation, urine symptoms, or neurological symptoms. Past Med Surg Social Fam HX - Past Medical History Medical history: asthma, COPD, CVA, diabetes, GERD, hyperlipidemia, hypertension, other Additional medical history: Arterial Stenosis, Endosmetriosis, Pancreatitis Psychiatric history: anxiety, depression - Past Surgical History Surgical History: hysterectomy, knee replacement Additional surgical history: back surgery (fusion), knee replacment x2 - Social History Smoking Status: Current every day smoker Smokeless Tobacco Status: No Alcohol use: none Drug use: none - Family History Mother Family Member Ethnicity: Non- Living Status: Still Living Hx Family Respiratory Disorders: Yes Father Family Member Ethnicity: Non- Living Status: Still Living Hx Family Cardiac Disorders: Yes Internal Medicine - H&P: Meds diazePAM [Valium] 10 mg PO BID PRN 08/19/15 [History] Insulin Glargine,Hum.rec.anlog [Basaglar Kwikpen U-100] 30 unit SQ HS 12/23/16 [History] Atorvastatin Calcium [Lipitor] 40 mg PO HS 01/26/18 [History] Cetirizine HCl [Zyrtec] 10 mg PO DAILY 01/26/18 [History] Furosemide [Lasix] 20 mg PO DAILY PRN 01/26/18 [History] Ramelteon [Rozerem] 8 mg PO HS 01/26/18 [History] Albuterol Sulfate [Proventil Inhaler] 2 puff IH Q4H PRN 08/15/18 [History] Budesonide/Formoterol 160/4.5 [Symbicort 160/4.5] 2 puff IH BIDR 08/15/18 [History] Doxepin HCl 200 mg PO HS 08/15/18 [History] Ergocalciferol (VITAMIN D2) [Vitamin D2] 50,000 unit PO TH 08/15/18 [History] Flunisolide 2 spray NS BID 08/15/18 [History] Insulin LISPRO [Admelog Solostar] 8 - 16 unit SQ TIDAC 08/15/18 [History] Levomilnacipran HCl [Fetzima] 40 mg PO DAILY 08/15/18 [History] Metformin HCl 1,000 mg PO BID 08/15/18 [History] Ondansetron ODT [Zofran ODT] 4 - 8 mg SL Q8H PRN 08/15/18 [History] Oxycodone HCl 5 mg PO DAILY PRN 08/15/18 [History] Cefdinir [Omnicef] 300 mg PO BID #14 capsule 08/17/18 [Rx] PredniSONE [Deltasone] 40 mg PO DAILY #11 tablet 08/17/18 [Rx] Allergy/AdvReac Type Severity Reaction Status Date / Time morphine Allergy Unknown facial Verified 07/12/18 10:46 swelling, redness Penicillins Allergy Unknown Unknown Verified 07/12/18 10:46 pregabalin [From Lyrica] Allergy Unknown Blindness, Verified 07/12/18 10:46 Difficulty walking trazodone Allergy Unknown Tachycardia Verified 07/12/18 10:46 aspirin AdvReac Unknown nausea and Verified 07/12/18 10:46 vomiting sumatriptan [From Imitrex] AdvReac Unknown Disoriented Verified 07/12/18 10:46 All Systems PM: A 10-system review of systems was performed and is negative for pertinent findings except as documented above in the HPI. Review of systems: All systems reviewed are negative except for as mentioned above - Constitutional Vitals: Temp Pulse Resp BP Pulse Ox 98.0 F 78 20 111/76 96 08/23/18 12:11 08/23/18 16:06 08/23/18 16:06 08/23/18 16:06 08/23/18 16:06 Exam: GEN: NAD HEENT: AT, NC, No cyanosis, oral mucosa is moist, No JVD Lymphatics: No lymphadenoapthy Eyes: Extrocular muscles intact, anicteric CVS:RRR. S1, S2, No m/r/g RESP: Diminished with expiratory wheezes bibasilarly posteriorly. Rhonchi bilaterally. ABD: Soft, NT, ND, +BS EXT: No edema, No rashes, 2+ DP NEURO: Nonfocal, CN II-XII intact, No focal motor or sensory deficits Psych: Cooperative, Not anxious or depressed Internal Med - H&P Results - Labs CBC & Chem 7: 08/23/18 12:52 08/23/18 12:52 Labs: Short CBC 08/23/18 Range/Units 12:52 WBC 19.6 H (4.3-11.1) K/mcL Hgb 11.7 (11.5-15.4) g/dL Hct 36.6 (35.3-44.9) % Plt Count 349 (140-400) K/mcL Neutrophils # 9.0 H (1.6-8.9) K/mcL BMP 08/23/18 12:52 Sodium 138 Potassium 3.6 Chloride 101 Carbon Dioxide 29 BUN 16 Creatinine 1.00 Glucose 94 Calcium 8.9 Cardiac Enzymes 08/23/18 Range/Units 12:52 Troponin I < 0.03 (< 0.04) ng/mL - Impressions ITS Impressions Chest X-Ray 08/23/18 12:28 IMPRESSION: Linear atelectasis at the left lung base is stable. Otherwise no acute abnormality. D/ / Rober Holloway MD / Rober Holloway MD Interpreting Provider: Rober Holloway MD Chest CTA 08/23/18 13:20 IMPRESSION: 1. No evidence of pulmonary embolism. 2. Mildly prominent nonspecific right hilar node. 3. Lingular and bibasilar linear opacities may represent atelectasis or infiltrate. D/ / 08/23/2018 14:18:47 Alejandra Miles MD / nixon Interpreting Provider: Alejandra Miles MD - Assessment and Plan (1) Pneumonia Current Visit: Yes Status: Acute Assessment and plan: Cultures negative from last a. Continues to have symptoms. Check Procalcitonin. Check urine strep and Legionella. Was not improving on oral antibiotics. CTA shows pneumonia We will place the patient on IV vancomycin as well as Zosyn for now and see if she has improvement with more broad-spectrum antibiotics. Cough syrup. Qualifiers: Pneumonia type: due to unspecified organism Laterality: unspecified laterality Lung location: unspecified part of lung Qualified Code(s): J18.9 - Pneumonia, unspecified organism (2) COPD exacerbation Current Visit: Yes Status: Acute Assessment and plan: Patient was discharged on prednisone taper. We will put her back on IV steroids given her spastic findings on examination. O2 support as needed. Nebs schedule d. (3) Diabetes Current Visit: No Status: Chronic Assessment and plan: Sliding scale insulin. Resume home basal insulin of 30 units of Levemir. Accu- Cheks. Qualifiers: Diabetes mellitus type: type 2 Diabetes mellitus retirement insulin use: without retirement use Diabetes mellitus complication status: without complication Qualified Code(s): E11.9 - Type 2 diabetes mellitus without complications (4) GERD (gastroesophageal reflux disease) Current Visit: No Status: Chronic Assessment and plan: Continue home meds Qualifiers: Esophagitis presence: without esophagitis Qualified Code(s): K21.9 - Gastro-esophageal reflux disease without esophagitis (5) HLD (hyperlipidemia) Current Visit: No Status: Chronic Assessment and plan: Continue with home meds Qualifiers: Hyperlipidemia type: unspecified Qualified Code(s): E78.5 - Hyperlipidemia, unspecified (6) Obesity (BMI 30.0-34.9) Current Visit: No Status: Chronic Assessment and plan: Counseled (7) DVT prophylaxis Current Visit: No Status: Acute Assessment and plan: Heparin subcutaneous - Time Spent With Patient Total time spent is greater than 50% in coordination of care (as documented) at patient's floor/unit and/or counseling patient:
[2018-08-23] MEDS ORDERED: Furosemide 20 MG TABLET PO PRN (16:14)
[2018-08-23] MEDS ORDERED: diazePAM 10 MG TABLET PO PRN (16:14)
[2018-08-23] MEDS: GuaiFENesin/Codeine Oral Soln 5 ML UDC PO PRN ×2 (16:24→22:57)
[2018-08-23] MEDS ORDERED: Insulin LISPRO 300 UNITS/3 ML VIAL SQ SCH ×2 (16:30→21:00)
[2018-08-23] MEDS: Cefepime HCl 2,000 MG in Water for inj. (sterile) 20 ML IVP SCH (18:24)
[2018-08-23] MEDS ORDERED: Benzonatate 100 MG CAPSULE PO ONE (19:47)
[2018-08-23] MEDS: Insulin LISPRO 300 UNITS/3 ML VIAL SQ SCH (20:24)
[2018-08-23] MEDS ORDERED: Acetaminophen IV 1,000 MG/100 ML INFUS..BTL IVPB ONE (20:39)
[2018-08-23] MEDS ORDERED: Insulin DETEMIR 100 UNIT/ML X5UNITS SQ SCH (21:00)
[2018-08-23] MEDS: Levalbuterol Neb 1.25 MG/3 ML IH SCH ×2 (21:36→21:46)
[2018-08-23] MEDS: Budesonide/Formoterol 160/4.5 1 PUFF INH IH SCH (21:46)
[2018-08-23] MEDS ORDERED: Ipratropium/Albuterol Neb 3 ML IH SCH (22:00)
[2018-08-24] MEDS ORDERED: Piperacillin/Tazobactam 3.375 GM in 0.9 % Sodium Chloride Mini Bag 100 ML IVPB SCH
[2018-08-24] MEDS: methylPREDNISolone 125 MG/2 ML VIAL IVP SCH ×3 (00:32→16:54)
[2018-08-24] MEDS: Cefepime HCl 2,000 MG in Water for inj. (sterile) 20 ML IVP SCH ×3 (00:33→17:03)
[2018-08-24] MEDS: Menthol 9.1 MG LOZENGE PO PRN ×2 (02:47→07:10)
[2018-08-24] MEDS: Levalbuterol Neb 1.25 MG/3 ML IH SCH ×4 (04:24→22:13)
[2018-08-24] MEDS: GuaiFENesin/Codeine Oral Soln 5 ML UDC PO PRN ×3 (04:32→20:53)
[2018-08-24 04:40] LABS: Hematocrit 39.1 % (35.3-44.9); Hemoglobin 12.3 g/dL (11.5-15.4); Mean Corpuscular HGB Conc 31.5 g/dL (31.6-35.5); Mean Corpuscular Hemoglobin 29.1 pg (28.0-33.3); Mean Corpuscular Volume 92.4 fL (83.0-100.0); Mean Platelet Volume 8.3 fL (9.4-12.4); Platelet Count 323 K/mcL (140-400); Red Blood Count 4.23 M/mcL (3.82-4.97); Red Cell Distribution Width 16.1 % (11.5-14.5)
[2018-08-24] MEDS ORDERED: Acetaminophen/Butalbital/CaffeineTABLET PO ONE (04:48)
[2018-08-24 05:23] LABS: BUN/Creatinine Ratio 16 (6-26); Blood Urea Nitrogen 14 mg/dL (6-20); Calcium 9.1 mg/dL (8.6-10.3); Carbon Dioxide 18 mEq/L (23-29); Chloride 99 mEq/L (98-107); Glucose 413 mg/dL (70-105); Osmolality,Calculated 292 (280-300); Potassium 4.9 mEq/L (3.5-5.1); Sodium 132 mEq/L (136-145); eGFR For African Americans > 60 (> 60); eGFR For Non-African Americans > 60 (> 60)
[2018-08-24] MEDS ORDERED: Insulin DETEMIR 100 UNIT/ML X5UNITS SQ ONE (05:25)
[2018-08-24 05:37] LABS: Lymphocytes # 2.5 K/mcL (0.6-4.6); Neutrophils # 15.1 K/mcL (1.6-8.9)
--- NOTE | 2018-08-24 06:11 | Event Note ---
Date of Encounter: 08/23/18 Time of Encounter: 20:17 Alerted by patient's nurse GREGG Moreno that patient had told her during assessment she has had several recent falls and stated she fell yesterday and struck her head. Patient stated she did not lose consciousness but just feels "weird". Heparin SQ stopped. Stat CT of the head/brain ordered which showed no acute hemorrhage. Nurse instructed to continue monitoring the pt. very closely and alert me immediately of any adverse changes.
--- NOTE | 2018-08-24 08:22 | Internal Med Progress Note ---
Hospitalist Progress Note - Encounter Date of Encounter: 08/24/18 Time of Encounter: 08:20 - Subjective Interval History: Patient was seen and examined. Still feeling short of breath but mainly with cough spells. A CT head was done overnight as the patient had reported a fall the day prior to admission. It was negative. Glucose noted to be elevated and was given 30 units of levemir this morning by the night team. Afebrile. Still coughs. On room air - Exam Vitals: Temp Pulse Resp BP Pulse Ox 97.9 F 63 17 132/74 95 08/24/18 07:16 08/24/18 07:16 08/24/18 07:16 08/24/18 07:16 08/24/18 07:16 Exam: GEN: NAD CVS:RRR. S1, S2, No m/r/g RESP: Diminished with expiratory wheezes bibasilarly posteriorly. Rhonchi bilaterally. ABD: Soft, NT, ND, +BS EXT: No edema, No rashes, 2+ DP NEURO: Nonfocal, CN II-XII intact, No focal motor or sensory deficits - Assessment and Plan (1) Pneumonia Current Visit: Yes Status: Acute Assessment and Plan: Cultures negative from last admit. Continues to have symptoms. Normal Procalcitonin. f/u urine strep and Legionella. Was not improving on oral antibiotics. CTA shows pneumonia. c/w IV vancomycin as well as Zosyn for now till better improvement is seen. Cough syrup. Will add tessalon. (2) COPD exacerbation Current Visit: Yes Status: Acute Assessment and Plan: Patient was discharged on prednisone taper. decrease IV steroids to Q12 hrs given elevated glucose and improvement in symptoms. O2 support as needed. Nebs scheduled. (3) Diabetes Current Visit: No Status: Chronic Assessment and Plan: Sliding scale insulin. Increase night levemir to 45 units from 30 units. Given 30 units this am. Accu-Cheks. Hyperglycemia likely induced by steroids (4) GERD (gastroesophageal reflux disease) Current Visit: No Status: Chronic Assessment and Plan: Continue home meds (5) HLD (hyperlipidemia) Current Visit: No Status: Chronic Assessment and Plan: Continue with home meds (6) Obesity (BMI 30.0-34.9) Current Visit: No Status: Chronic Assessment and Plan: Counseled (7) DVT prophylaxis Current Visit: No Status: Acute Assessment and Plan: Heparin subcutaneous - Time Spent with Patient Total time spent is greater than 50% in coordination of care (as documented) at patient's floor/unit and/or counseling patient: Internal Medicine: Result - Labs CBC & Chem 7: 08/24/18 04:16 08/24/18 04:16 Labs: Short CBC 08/23/18 08/24/18 Range/Units 12:52 04:16 WBC 19.6 H 18.0 H (4.3-11.1) K/mcL Hgb 11.7 12.3 (11.5-15.4) g/dL Hct 36.6 39.1 (35.3-44.9) % Plt Count 349 323 (140-400) K/mcL Neutrophils # 9.0 H 15.1 H (1.6-8.9) K/mcL BMP 08/23/18 08/24/18 12:52 04:16 Sodium 138 132 L Potassium 3.6 4.9 D Chloride 101 99 Carbon Dioxide 29 18 L BUN 16 14 Creatinine 1.00 0.87 Glucose 94 413 H Calcium 8.9 9.1 Cardiac Enzymes 08/23/18 Range/Units 12:52 Troponin I < 0.03 (< 0.04) ng/mL - ABG Interpretation ABG results: PT/INR, D-dimer D-Dimer 1237 ng/mLFEU (0-500) H 08/23/18 12:52 - Impressions Impressions Chest X-Ray 08/23/18 12:28 IMPRESSION: Linear atelectasis at the left lung base is stable. Otherwise no acute abnormality. D/ / Rober Holloway MD / Rober Holloway MD Interpreting Provider: Rober Holloway MD Chest CTA 08/23/18 13:20 IMPRESSION: 1. No evidence of pulmonary embolism. 2. Mildly prominent nonspecific right hilar node. 3. Lingular and bibasilar linear opacities may represent atelectasis or infiltrate. D/ / 08/23/2018 14:18:47 Alejandra Miles MD / nixon Interpreting Provider: Alejandra Miels MD Head CT 08/23/18 20:20 IMPRESSION: No acute hemorrhage. 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
[2018-08-24] MEDS: Loratadine 10 MG TABLET PO SCH (08:23)
[2018-08-24] MEDS: Insulin LISPRO 300 UNITS/3 ML VIAL SQ SCH ×5 (08:26→20:44)
[2018-08-24] MEDS ORDERED: Benzonatate 100 MG CAPSULE PO PRN (08:32)
[2018-08-24] MEDS: Budesonide/Formoterol 160/4.5 1 PUFF INH IH SCH ×2 (11:02→22:13)
[2018-08-24] MEDS ORDERED: Aminoglycoside Consult 1 EACH MC ONE (11:28)
[2018-08-24] MEDS: Fluticasone Propionate Nasal 50 MCG/SPRAY BOTTLE NS SCH (12:34)
[2018-08-24] MEDS: LEVOMILNACIPRAN HCL 40 MG PO SCH (15:01)
[2018-08-24] MEDS: Nicotine 21 MG PATCH.TD24 TD SCH (15:11)
[2018-08-24] MEDS: *HR* Heparin 5,000 UNIT/ML VIAL SQ SCH ×2 (15:12→20:41)
[2018-08-24] MEDS ORDERED: Ibuprofen 600 MG TABLET PO PRN (18:35)
[2018-08-24] MEDS ORDERED: ROZEREM 8 MG PO PRN (21:00)
[2018-08-24] MEDS ORDERED: Insulin DETEMIR 100 UNIT/ML X5UNITS SQ SCH (21:00)
[2018-08-24] MEDS ORDERED: lamoTRIgine 100 MG TABLET PO SCH (21:00)
--- NOTE | 2018-08-25 00:11 | Electrocardiograph Report ---
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
[2018-08-25] MEDS ORDERED: Insulin DETEMIR 100 UNIT/ML X5UNITS SQ ONE (00:41)
[2018-08-25] MEDS: Cefepime HCl 2,000 MG in Water for inj. (sterile) 20 ML IVP SCH ×2 (01:18→10:29)
[2018-08-25] MEDS: Levalbuterol Neb 1.25 MG/3 ML IH SCH (03:48)
[2018-08-25 04:48] LABS: Hemoglobin 11.5 g/dL (11.5-15.4); Mean Corpuscular HGB Conc 31.9 g/dL (31.6-35.5)
[2018-08-25 04:50] LABS: Mean Corpuscular Hemoglobin 28.5 pg (28.0-33.3); Mean Corpuscular Volume 89.1 fL (83.0-100.0); Mean Platelet Volume 8.4 fL (9.4-12.4); Platelet Count 381 K/mcL (140-400); Red Blood Count 4.04 M/mcL (3.82-4.97); Red Cell Distribution Width 16.2 % (11.5-14.5); White Blood Count 27.1 K/mcL (4.3-11.1)
[2018-08-25] MEDS: *HR* Heparin 5,000 UNIT/ML VIAL SQ SCH (05:08)
[2018-08-25] MEDS: methylPREDNISolone 125 MG/2 ML VIAL IVP SCH (05:08)
[2018-08-25 05:09] LABS: BUN/Creatinine Ratio 21 (6-26); Blood Urea Nitrogen 18 mg/dL (6-20); Calcium 9.8 mg/dL (8.6-10.3); Carbon Dioxide 27 mEq/L (23-29); Chloride 98 mEq/L (98-107); Glucose 342 mg/dL (70-105); Magnesium 1.9 mg/dL (1.6-2.6); Osmolality,Calculated 295 (280-300); Sodium 135 mEq/L (136-145); eGFR For African Americans > 60 (> 60); eGFR For Non-African Americans > 60 (> 60)
[2018-08-25 05:20] LABS: Lymphocytes # 4.3 K/mcL (0.6-4.6); Monocytes # 1.6 K/mcL (0.0-1.3); Neutrophils # 21.1 K/mcL (1.6-8.9); Platelet Estimate Normal (Normal); Reactive Lymphocytes Present (Not Present)
[2018-08-25 07:00] VITALS: BP 138/83
--- NOTE | 2018-08-25 08:46 | Discharge Summary ---
Orders not resulted at time of discharge: Pending orders 08/23/18 12:51 Culture,Blood [BC] Stat 08/23/18 16:06 Culture,Sputum with Gram Stain [] Routine Date of Encounter: 08/25/18 Time of Encounter: 08:42 - Discharge Diagnosis (1) Pneumonia Priority: Primary Status: Acute Qualifiers: Pneumonia type: due to unspecified organism Laterality: unspecified laterality Lung location: unspecified part of lung Qualified Code(s): J18.9 - Pneumonia, unspecified organism (2) COPD exacerbation Priority: Primary Status: Acute (3) Diabetes Priority: Secondary Status: Chronic Qualifiers: Diabetes mellitus type: type 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 Conde is a 42 year old female with history of COPD on 2 L nasal cannula at night, as well as, GERD, hyperlipidemia, anxiety who presented with persistent cough and shortness of breath. The patient was recently discharged from here on 08/17 due to pneumonia and was discharged on cefdinir. At the time she had bronchoscopy and BAL was done and was negative. She says she was not completely at baseline when she was discharged but she wanted to be discharged as she did not want to stay here over the weekend. Since she left she has had continued fevers although also subjective with chills, and sweats. She has had a cough that is productive of yellowish to greenish sputum. She has had significant cough spells has noted some streaks of blood sometimes. When she came to the ED she was noted to have leukocytosis but she was on prednisone taper. She was noted to have a heart rate up to 105 at times. She was tachypneic into the 20s. D dimers were noted to be elevated and CT of chest was done which showed similar pneumonia. She was admitted and put on vancomycin and cefepime. I stopped vancomycin after a day. She was doing well on cefepime. She was on IV steroids. She was noted to have hyperglycemia on steroids. I discharged her on a prednisone taper and told her to increase her basal insulin to 45 units from 30 units while on the taper. Also discharged on Doxycycline and levaquin for 5 days. Discharged as she was feeling much better and felt ready for discharge on 08/25/18. - Time Spent with Patient Total time spent providing and/or coordinating discharge services: Time spent: Greater than 30 minutes - Discharge Medications Prescriptions: New Doxycycline 100 mg PO BID #10 capsule levoFLOXacin [Levaquin] 750 mg PO DAILY #5 tablet predniSONE [PredniSONE] 10 mg PO TAPER #21 tablet Benzonatate [Tessalon] 200 mg PO TID PRN #30 capsule PRN Reason: Cough Continued diazePAM [Valium] 10 mg PO BID PRN PRN Reason: SEVERE ANXIETY Ramelteon [Rozerem] 8 mg PO HS Furosemide [Lasix] 20 mg PO DAILY PRN PRN Reason: Edema Cetirizine HCl [Zyrtec] 10 mg PO DAILY Atorvastatin Calcium [Lipitor] 40 mg PO HS Ondansetron ODT [Zofran ODT] 4 - 8 mg SL Q8H PRN PRN Reason: Nausea Doxepin HCl 200 mg PO HS Flunisolide 2 spray NS BID Levomilnacipran HCl [Fetzima] 40 mg PO DAILY Albuterol Sulfate [Proventil Inhaler] 2 puff IH Q4H PRN PRN Reason: Shortness Of Breath Oxycodone HCl 5 mg PO DAILY PRN PRN Reason: Pain Metformin HCl 1,000 mg PO BID Ergocalciferol (VITAMIN D2) [Vitamin D2] 50,000 unit PO TH Budesonide/Formoterol 160/4.5 [Symbicort 160/4.5] 2 puff IH BIDR Insulin LISPRO [Admelog Solostar] 8 - 16 unit SQ TIDAC lamoTRIgine [Lamictal] 100 mg PO HS Changed Insulin Glargine,Hum.rec.anlog [Basaglar Kwikpen U-100] 45 unit SQ HS #0 Home Medications: diazePAM [Valium] 10 mg PO BID PRN 07/13/16 [History] Atorvastatin Calcium [Lipitor] 40 mg PO HS 01/26/18 [History] Cetirizine HCl [Zyrtec] 10 mg PO DAILY 01/26/18 [History] Furosemide [Lasix] 20 mg PO DAILY PRN 01/26/18 [History] Ramelteon [Rozerem] 8 mg PO HS 01/26/18 [History] Albuterol Sulfate [Proventil Inhaler] 2 puff IH Q4H PRN 08/15/18 [History] Budesonide/Formoterol 160/4.5 [Symbicort 160/4.5] 2 puff IH BIDR 08/15/18 [History] Doxepin HCl 200 mg PO HS 08/15/18 [History] Ergocalciferol (VITAMIN D2) [Vitamin D2] 50,000 unit PO TH 08/15/18 [History] Flunisolide 2 spray NS BID 08/15/18 [History] Insulin LISPRO [Admelog Solostar] 8 - 16 unit SQ TIDAC 08/15/18 [History] Levomilnacipran HCl [Fetzima] 40 mg PO DAILY 08/15/18 [History] Metformin HCl 1,000 mg PO BID 08/15/18 [History] Ondansetron ODT [Zofran ODT] 4 - 8 mg SL Q8H PRN 08/15/18 [History] Oxycodone HCl 5 mg PO DAILY PRN 08/15/18 [History] lamoTRIgine [Lamictal] 100 mg PO HS 08/23/18 [History] Benzonatate [Tessalon] 200 mg PO TID PRN #30 capsule 08/25/18 [Rx] Doxycycline 100 mg PO BID #10 capsule 08/25/18 [Rx] Insulin Glargine,Hum.rec.anlog [Basaglar Kwikpen U-100] 45 unit SQ HS #0 08/25/18 [Rx] levoFLOXacin [Levaquin] 750 mg PO DAILY #5 tablet 08/25/18 [Rx] predniSONE [PredniSONE] 10 mg PO TAPER #21 tablet 08/25/18 [Rx] Allergies/Adverse Reactions: Allergy/AdvReac Type Severity Reaction Status Date / Time morphine Allergy Unknown facial Verified 07/12/18 10:46 swelling, redness Penicillins Allergy Unknown Unknown Verified 07/12/18 10:46 pregabalin [From Lyrica] Allergy Unknown Blindness, Verified 07/12/18 10:46 Difficulty walking trazodone Allergy Unknown Tachycardia Verified 07/12/18 10:46 aspirin AdvReac Unknown nausea and Verified 07/12/18 10:46 vomiting sumatriptan [From Imitrex] AdvReac Unknown Disoriented Verified 07/12/18 10:46 Date of admission: 08/23/18 17:00 Primary care physician: Kyle Moreno MD Consults: 08/23/18 16:06 Consult to Occupational Therapy [CONS] Routine Comment: Evaluate, develop and implement POC Reason for Consult: therapy/placement needs Does patient have active BEDREST order?: No Is patient medically & hemodynamically stable?: Yes 08/24/18 08:19 Consult to Occupational Therapy [CONS] Routine Comment: Evaluate, develop and implement POC Reason for Consult: therapy/placement needs Does patient have active BEDREST order?: No Is patient medically & hemodynamically stable?: Yes 08/24/18 09:12 Consult to Nurse Navigator [CONS] Routine Comment: copd, pna - Constitutional Vitals: Temp Pulse Resp BP Pulse Ox 98.1 F 64 18 138/83 91 08/25/18 06:57 08/25/18 06:57 08/25/18 06:57 08/25/18 06:57 08/25/18 06:57 Exam: GEN: NAD CVS:RRR. S1, S2, No m/r/g RESP: Diminished ABD: Soft, NT, ND, +BS EXT: No edema, No rashes, 2+ DP NEURO: Nonfocal, CN II-XII intact, No focal motor or sensory deficits - Patient Status Disposition: Home, Self-Care Condition: Fair Overall status at discharge: patient is progressing back to baseline - Discharge Instructions Follow Up With: Kyle Moreno MD [Primary Care Provider] - Additional Instructions: Take antibiotics for 5 days. Finish prednisone taper Increase night insulin to 45 units while on prednisone taper - Diet and Activity Activity: increase activity as tolerated Diet: diabetic diet
[2018-08-25] MEDS: Loratadine 10 MG TABLET PO SCH (10:23)
[2018-08-25] MEDS: LEVOMILNACIPRAN HCL 40 MG PO SCH (10:24)
[2018-08-25] MEDS: Nicotine 21 MG PATCH.TD24 TD SCH (10:24)
[2018-08-25] MEDS: Fluticasone Propionate Nasal 50 MCG/SPRAY BOTTLE NS SCH (10:24)
[2018-08-25] MEDS: Insulin LISPRO 300 UNITS/3 ML VIAL SQ SCH ×2 (10:30→10:31)
== END 2018-08-25 11:29 | disposition home or self-care (01) ==
LOC: 3ANU 12:08 → EMEROOARM 12:08 → 3ANU 15:10 → SUATTDRO 17:00
PROVIDERS: ADMIT Student in an Organized Health Care Education/Training Program; ATTEND Internal Medicine

== ENCOUNTER 2020-03-26 10:19 | Observation (INO) ==
[2020-03-26] MEDS ORDERED: 0.9 % Sodium Chloride 500 ML IVC ONE (10:32)
[2020-03-26] MEDS ORDERED: Ipratropium/Albuterol Neb 3 ML IH ONE (10:33)
[2020-03-26 10:56] LABS: Eosinophils # 0.2 K/mcL (0.0-0.6); Hematocrit 40.2 % (35.3-44.9); Hemoglobin 12.7 g/dL (11.5-15.4); Mean Corpuscular HGB Conc 31.6 g/dL (31.6-35.5); Mean Corpuscular Hemoglobin 27.7 pg (28.0-33.3); Mean Corpuscular Volume 87.6 fL (83.0-100.0); Mean Platelet Volume 8.5 fL (9.4-12.4); Platelet Count 412 K/mcL (140-400); Red Blood Count 4.59 M/mcL (3.82-4.97); Red Cell Distribution Width 14.6 % (11.5-14.5)
[2020-03-26 11:01] LABS: INR 0.9; Prothrombin Time 10.7 Seconds (9.4-12.1)
[2020-03-26 11:04] LABS: Activated Partial Thrombo Time 32.4 Seconds (26.0-36.0)
[2020-03-26 11:20] LABS: Lymphocytes # 8.8 K/mcL (0.6-4.6); Monocytes # 0.6 K/mcL (0.0-1.3); Neutrophils # 11.1 K/mcL (1.6-8.9); Platelet Estimate Normal (Normal); Reactive Lymphocytes Present (Not Present)
[2020-03-26] MEDS ORDERED: Isovue-370 500 ML BOTTLE IVP ONE (11:20)
[2020-03-26 11:53] LABS: BUN/Creatinine Ratio 23 (6-26); Blood Urea Nitrogen 18 mg/dL (6-20); Calcium 9.1 mg/dL (8.6-10.3); Carbon Dioxide 30 mEq/L (23-29); Chloride 99 mEq/L (98-107); Glucose 132 mg/dL (70-105); Lipase 17 Units/L (11-82); Osmolality,Calculated 288 (280-300); Potassium 4.1 mEq/L (3.5-5.1); Sodium 137 mEq/L (136-145); Troponin I 0.03 ng/mL (< 0.04); eGFR For African Americans > 60 (> 60); eGFR For Non-African Americans > 60 (> 60)
[2020-03-26 12:26] LABS: Adenovirus Not Detected (Not Detect); Coronavirus 229E Not Detected (Not Detect); Coronavirus HKU1 Not Detected (Not Detect)
[2020-03-26 12:27] LABS: Bordetella Pertussis Not Detected (Not Detect); Chlamydophila pneumoniae Not Detected (Not Detect); Coronavirus NL63 Not Detected (Not Detect); Coronavirus OC43 Not Detected (Not Detect); Human Metapneumovirus Not Detected (Not Detect); Human Rhinovirus/Enterovirus Not Detected (Not Detect); Influenza A Subtype 2009 H1 Not Detected (Not Detect); Influenza B Not Detected (Not Detect); Mycoplasma pneumoniae Not Detected (Not Detect); Parainfluenza Virus 1 Not Detected (Not Detect); Parainfluenza Virus 2 Not Detected (Not Detect); Parainfluenza Virus 3 Not Detected (Not Detect); Parainfluenza Virus 4 Not Detected (Not Detect); Respiratory Syncytial Virus Not Detected (Not Detect); SARS-CoV-2 Not Detected (Not Detect)
[2020-03-26 12:43] LABS: Bacteria,Urine Few per hpf (None-Few); Bilirubin,Urine Negative (Negative); Blood,Urine Negative (Negative); Clarity,Urine Clear (Clear); Color,Urine Yellow (Yellow); Glucose,Urine (UA) Normal (Normal); Ketones,Urine Negative (Negative); Leukocyte Esterase,Urine Large (Negative); Mucus,Urine Few per lpf (None-Few); Nitrite,Urine Negative (Negative); PH,Urine 6.5 pH Units (5.0-8.0); Protein,Urine Trace mg/dL (Neg-Trace); RBC,Urine 0-3 per hpf (0-3); Specific Gravity,Urine 1.029 (1.010-1.025); Squamous Epithelial Cell,Urine Few per hpf (None-Few)
[2020-03-26 12:44] LABS: Albumin 3.7 g/dL (3.5-5.7); Albumin/Globulin Ratio 1.3 (1.1-2.2); Bilirubin,Direct 0.1 mg/dL (0.0-0.2); Bilirubin,Indirect 0.2 mg/dL (0.0-1.0); Bilirubin,Total 0.3 mg/dL (0.3-1.0); Globulin 2.9 g/dL (2.4-3.5); Total Protein 6.6 g/dL (6.4-8.9)
[2020-03-26] MEDS ORDERED: Azithromycin 500 MG in 0.9 % Sodium Chloride 250 ML IVPB ONE (13:59)
[2020-03-26] MEDS ORDERED: Vancomycin 1,250 MG/262.5 ML IV.SOLN IVPB ONE (14:00)
[2020-03-26] MEDS ORDERED: Cefepime HCl 1,000 MG in 0.9 % Sodium Chloride Mini Bag 100 ML IVPB ONE (14:00)
[2020-03-26] MEDS ORDERED: 0.9 % Sodium Chloride 1,000 ML IV ONE (14:04)
[2020-03-26] MEDS ORDERED: Cefepime HCl 1,000 MG in Water for inj. (sterile) 10 ML IVP ONE (14:15)
[2020-03-26] MEDS ORDERED: Acetaminophen 325 MG TABLET PO PRN (14:31)
[2020-03-26] MEDS ORDERED: Naloxone 0.4 MG/ML INJ IVP PRN (14:31)
[2020-03-26] MEDS ORDERED: Dextrose Gel 15 GM/37.5 ML TUBE PO PRN ×2 (14:33)
[2020-03-26] MEDS ORDERED: *HR* Dextrose 50 % in Water (Vial) 50 ML VIAL IVP PRN (14:33)
[2020-03-26] MEDS ORDERED: D5% in Water 1,000 ML IVC PRN (14:33)
[2020-03-26] MEDS ORDERED: Benzonatate 100 MG CAPSULE PO PRN (14:39)
[2020-03-26] MEDS ORDERED: Albuterol 2.5 MG/3 ML NEBULIZER IH SCH (16:00)
[2020-03-26] MEDS: Ipratropium/Albuterol Neb 3 ML IH SCH ×3 (16:05→23:41)
[2020-03-26] MEDS: Doxycycline 100 MG in 0.9 % Sodium Chloride Mini Bag 100 ML IVPB SCH (18:17)
[2020-03-26] MEDS ORDERED: 0.9 % Sodium Chloride Mini Bag 100 ML ONE (18:17)
[2020-03-26] MEDS: *HR* Heparin 5,000 UNIT/ML VIAL SQ SCH (18:18)
[2020-03-26] MEDS: *HR* OxyCODONE Immed Rel 5 MG TABLET PO PRN (18:57)
[2020-03-26] MEDS: Benzonatate 100 MG CAPSULE PO SCH ×2 (19:27→20:44)
[2020-03-26] MEDS: Insulin LISPRO 300 UNITS/3 ML VIAL SUBQ SCH (19:28)
[2020-03-26] MEDS: Budesonide/Formoterol 160/4.5 1 PUFF INH IH SCH (19:49)
[2020-03-26] MEDS: MethylPREDNISolone 40 MG/ML VIAL IVP SCH (20:44)
[2020-03-26] MEDS: diazePAM 10 MG TABLET PO PRN (20:44)
[2020-03-26] MEDS: lamoTRIgine 100 MG TABLET PO SCH (20:44)
[2020-03-26] MEDS: Insulin DETEMIR 100 UNIT/ML X5UNITS SUBQ SCH (20:45)
[2020-03-26] MEDS: Cefepime HCl 1,000 MG in 0.9 % Sodium Chloride Mini Bag 100 ML IVPB SCH (20:45)
[2020-03-26] MEDS: Nicotine 21 MG PATCH.TD24 TD SCH (21:42)
[2020-03-26] MEDS ORDERED: Budesonide/Formoterol 160/4.5 1 PUFF INH IH SCH (22:00)
[2020-03-26] MEDS: Ondansetron 4 MG/2 ML VIAL IVP PRN (23:18)
[2020-03-27] MEDS: *HR* OxyCODONE Immed Rel 5 MG TABLET PO PRN ×4 (01:41→23:25)
[2020-03-27] MEDS: Ipratropium/Albuterol Neb 3 ML IH SCH ×6 (03:32→23:50)
[2020-03-27] MEDS: *HR* Heparin 5,000 UNIT/ML VIAL SQ SCH ×2 (04:57→17:19)
[2020-03-27] MEDS: Doxycycline 100 MG in 0.9 % Sodium Chloride Mini Bag 100 ML IVPB SCH ×2 (04:59→17:18)
[2020-03-27] MEDS: Cefepime HCl 1,000 MG in 0.9 % Sodium Chloride Mini Bag 100 ML IVPB SCH ×3 (04:59→20:34)
[2020-03-27 05:48] LABS: Hematocrit 37.1 % (35.3-44.9); Hemoglobin 11.7 g/dL (11.5-15.4); Mean Corpuscular HGB Conc 31.5 g/dL (31.6-35.5); Mean Corpuscular Hemoglobin 27.5 pg (28.0-33.3); Mean Corpuscular Volume 87.1 fL (83.0-100.0); Mean Platelet Volume 8.3 fL (9.4-12.4); Monocytes # 0.3 K/mcL (0.0-1.3); Platelet Count 339 K/mcL (140-400); Red Blood Count 4.26 M/mcL (3.82-4.97); Red Cell Distribution Width 14.6 % (11.5-14.5); White Blood Count 13.5 K/mcL (4.3-11.1)
[2020-03-27 06:07] LABS: BUN/Creatinine Ratio 21 (6-26); Blood Urea Nitrogen 14 mg/dL (6-20); Calcium 9.3 mg/dL (8.6-10.3); Carbon Dioxide 26 mEq/L (23-29); Chloride 102 mEq/L (98-107); Glucose 234 mg/dL (70-105); Osmolality,Calculated 294 (280-300); Potassium 4.8 mEq/L (3.5-5.1); Sodium 138 mEq/L (136-145); eGFR For African Americans > 60 (> 60); eGFR For Non-African Americans > 60 (> 60)
[2020-03-27 06:25] LABS: Lymphocytes # 1.9 K/mcL (0.6-4.6); Neutrophils # 11.3 K/mcL (1.6-8.9); Platelet Estimate Normal (Normal); Reactive Lymphocytes Present (Not Present); Toxic Vacuolation Present (Not Present)
[2020-03-27] MEDS: Budesonide/Formoterol 160/4.5 1 PUFF INH IH SCH ×2 (07:27→20:22)
[2020-03-27] MEDS: MethylPREDNISolone 40 MG/ML VIAL IVP SCH ×3 (08:00→23:25)
[2020-03-27] MEDS: Nicotine 21 MG PATCH.TD24 TD SCH (08:00)
[2020-03-27] MEDS: Insulin LISPRO 300 UNITS/3 ML VIAL SUBQ SCH ×4 (08:01→17:19)
[2020-03-27] MEDS: Benzonatate 100 MG CAPSULE PO SCH ×3 (08:02→20:33)
[2020-03-27] MEDS: tiZANidine 4 MG TABLET PO SCH ×2 (12:28→20:34)
[2020-03-27] MEDS ORDERED: Furosemide 20 MG TABLET PO PRN (12:32)
[2020-03-27] MEDS ORDERED: Menthol 9.1 MG LOZENGE PO PRN (12:32)
[2020-03-27] MEDS: Insulin DETEMIR 100 UNIT/ML X5UNITS SUBQ SCH (20:34)
[2020-03-27] MEDS: lamoTRIgine 100 MG TABLET PO SCH (20:34)
[2020-03-27] MEDS: diazePAM 10 MG TABLET PO PRN (20:34)
[2020-03-28] MEDS: Ipratropium/Albuterol Neb 3 ML IH SCH ×4 (03:28→16:35)
[2020-03-28 05:42] LABS: Hematocrit 36.1 % (35.3-44.9); Hemoglobin 11.5 g/dL (11.5-15.4); Mean Corpuscular HGB Conc 31.9 g/dL (31.6-35.5); Mean Corpuscular Hemoglobin 27.7 pg (28.0-33.3); Mean Platelet Volume 8.6 fL (9.4-12.4); Platelet Count 393 K/mcL (140-400); Red Blood Count 4.15 M/mcL (3.82-4.97); Red Cell Distribution Width 14.6 % (11.5-14.5)
[2020-03-28 05:46] LABS: White Blood Count 21.4 K/mcL (4.3-11.1)
[2020-03-28] MEDS: Doxycycline 100 MG in 0.9 % Sodium Chloride Mini Bag 100 ML IVPB SCH ×2 (05:46→17:35)
[2020-03-28] MEDS: *HR* Heparin 5,000 UNIT/ML VIAL SQ SCH ×2 (05:46→17:35)
[2020-03-28] MEDS: Cefepime HCl 1,000 MG in 0.9 % Sodium Chloride Mini Bag 100 ML IVPB SCH ×2 (05:46→17:34)
[2020-03-28] MEDS: *HR* OxyCODONE Immed Rel 5 MG TABLET PO PRN (05:47)
[2020-03-28] MEDS: Ondansetron 4 MG/2 ML VIAL IVP PRN (05:47)
[2020-03-28 06:17] LABS: BUN/Creatinine Ratio 27 (6-26); Blood Urea Nitrogen 16 mg/dL (6-20); Calcium 9.6 mg/dL (8.6-10.3); Carbon Dioxide 27 mEq/L (23-29); Chloride 99 mEq/L (98-107); Glucose 241 mg/dL (70-105); Osmolality,Calculated 293 (280-300); Potassium 4.3 mEq/L (3.5-5.1); Sodium 137 mEq/L (136-145); eGFR For African Americans > 60 (> 60); eGFR For Non-African Americans > 60 (> 60)
[2020-03-28] MEDS: Budesonide/Formoterol 160/4.5 1 PUFF INH IH SCH ×2 (07:58→08:01)
[2020-03-28] MEDS: Benzonatate 100 MG CAPSULE PO SCH ×2 (08:13→16:02)
[2020-03-28] MEDS: Nicotine 21 MG PATCH.TD24 TD SCH (08:13)
[2020-03-28] MEDS: Insulin LISPRO 300 UNITS/3 ML VIAL SUBQ SCH ×3 (08:14→17:33)
[2020-03-28] MEDS: tiZANidine 4 MG TABLET PO SCH (08:14)
[2020-03-28] MEDS: MethylPREDNISolone 40 MG/ML VIAL IVP SCH ×2 (08:14→17:34)
[2020-03-28] MEDS: diazePAM 10 MG TABLET PO PRN (08:20)
[2020-03-28] MEDS ORDERED: *HR* Succinylcholine 200 MG/10 ML VIAL IVP ONE (14:49)
[2020-03-28] MEDS ORDERED: Lidocaine HCL 4 ML Topical Solution (Laryng-O-Jet Kit Sterile Pak) TP ONE (14:49)
[2020-03-28] MEDS ORDERED: Lidocaine -MPF 2% 2 ML VIAL ONE (14:49)
[2020-03-28] MEDS ORDERED: *HR* Rocuronium Bromide 50 MG/5 ML VIAL ONE (14:49)
[2020-03-28] MEDS ORDERED: *HR* Propofol 200 MG/20 ML VIAL IVP ONE (14:49)
[2020-03-28] MEDS ORDERED: Gabapentin 300 MG CAPSULE PO SCH (15:00)
[2020-03-28] MEDS ORDERED: *HR* FentaNYL (PF) 100 MCG/2 ML VIAL ONE (16:12)
[2020-03-28] MEDS ORDERED: *HR* Midazolam HCl 2 MG/2 ML VIAL ONE (16:12)
[2020-03-28] MEDS ORDERED: Ondansetron 4 MG/2 ML VIAL ONE (16:37)
[2020-03-28 17:12] VITALS: BP 128/75
[2020-03-28 23:16] LABS: Appearance of Body Fluid Cloudy (Clear); Volume of Body Fluid 15 mL
[2020-03-29] MEDS ORDERED: BREXPIPRAZOLE 4 MG PO SCH (09:00)
[2020-03-31 15:06] LABS: Influenza A PCR Body Fluid NOT DETECTED; Influenza B PCR Body Fluid NOT DETECTED
[2020-04-01 07:55] LABS: RSV PCR Body Fluid NOT DETECTED; RVP Body Fluid Source NOT PROVIDED
[2020-04-02 09:41] LABS: HSV Source NOT PROVIDED
== END 2020-03-28 18:06 | disposition home or self-care (01) ==
LOC: EMEROOARM 10:19 → 3BNU 10:19 → SUATTDRO 14:56 → 2ANU 15:03
PROVIDERS: ADMIT Internal Medicine; ATTEND Internal Medicine

== ENCOUNTER 2020-12-30 19:31 | Inpatient (IN) ==
[2020-12-30] MEDS ORDERED: 0.9 % Sodium Chloride 1,000 ML IVC ONE ×2 (19:35→20:48)
[2020-12-30] MEDS ORDERED: Naloxone 0.4 MG/ML INJ IVP ONE (19:35)
[2020-12-30] MEDS ORDERED: cefTRIAXone 1,000 MG in 0.9 % Sodium Chloride Mini Bag 100 ML IVPB ONE (19:38)
[2020-12-30] MEDS ORDERED: Azithromycin 500 MG in 0.9 % Sodium Chloride 250 ML IVPB ONE (19:38)
[2020-12-30] MEDS ORDERED: methylPREDNISolone 125 MG/2 ML VIAL IVP ONE (19:41)
[2020-12-30] MEDS ORDERED: Ipratropium/Albuterol Neb 3 ML IH ONE (19:41)
[2020-12-30 20:14] LABS: Hematocrit 39.4 % (35.3-44.9); Hemoglobin 12.6 g/dL (11.5-15.4); Mean Corpuscular Hemoglobin 28.3 pg (28.0-33.3); Mean Corpuscular Volume 88.3 fL (83.0-100.0); Platelet Count 248 K/mcL (140-400); Red Blood Count 4.46 M/mcL (3.82-4.97); White Blood Count 19.3 K/mcL (4.3-11.1)
[2020-12-30 20:21] LABS: INR 1.4
[2020-12-30 20:24] LABS: Activated Partial Thrombo Time 43.3 Seconds (26.0-36.0)
[2020-12-30 20:28] LABS: Amphetamine Screen,Urine Negative ng/mL (Cutoff=1000); Barbiturate Screen,Urine Negative ng/mL (Cutoff=200); Benzodiazepines Screen,Urine Positive ng/mL (Cutoff=200); Cannabinoid Screen,Urine Negative ng/mL (Cutoff = 50); Cocaine Screen,Urine Negative ng/mL (Cutoff= 300); Opiate Screen,Urine Negative ng/mL (Cutoff=300); Phencyclidine Screen,Urine Negative ng/mL (Cutoff=25)
[2020-12-30 20:29] LABS: Bilirubin,Urine Negative (Negative); Blood,Urine Large (Negative); Clarity,Urine Turbid (Clear); Color,Urine Light-Orange (Yellow); Glucose,Urine (UA) >=1000 mg/dL (Normal); Granular Casts,Urine Few per lpf (None Seen); Ketones,Urine 10 mg/dL (Negative); Leukocyte Esterase,Urine Negative (Negative); Mucus,Urine Moderate per lpf (None-Few); Nitrite,Urine Negative (Negative); Protein,Urine 200 mg/dL (Neg-Trace); RBC,Urine 0-3 per hpf (0-3); Specific Gravity,Urine 1.028 (1.010-1.025); Squamous Epithelial Cell,Urine Few per hpf (None-Few); Urobilinogen,Urine Normal (Normal); WBC,Urine 0-3 per hpf (0-3)
[2020-12-30 20:37] LABS: Lymphocytes # 3.9 K/mcL (0.6-4.6); Monocytes # 1.9 K/mcL (0.0-1.3); Neutrophils # 13.1 K/mcL (1.6-8.9)
[2020-12-30 20:40] LABS: Alanine Aminotransferase 18 Units/L (7-52); Albumin 3.4 g/dL (3.5-5.7); Albumin/Globulin Ratio 0.9 (1.1-2.2); Alkaline Phosphatase 147 Units/L (34-104); Aspartate Amino Transferase 22 Units/L (13-39); BUN/Creatinine Ratio 8 (6-26); Bilirubin,Direct 0.3 mg/dL (0.0-0.2); Bilirubin,Indirect 0.4 mg/dL (0.0-1.0); Bilirubin,Total 0.7 mg/dL (0.3-1.0); Blood Urea Nitrogen 9 mg/dL (6-20); Calcium 8.8 mg/dL (8.6-10.3); Carbon Dioxide 23 mEq/L (23-29); Chloride 90 mEq/L (98-107); Creatine Kinase 553 Units/L (30-223); Ethanol < 10 mg/dL (Less than 10); Globulin 3.6 g/dL (2.4-3.5); Glucose 251 mg/dL (70-105); Osmolality,Calculated 271 (280-300); Potassium 3.8 mEq/L (3.5-5.1); Sodium 127 mEq/L (136-145); Troponin I < 0.03 ng/mL (< 0.04); eGFR For African Americans > 60 (> 60); eGFR For Non-African Americans 52 (> 60)
[2020-12-30 20:51] LABS: Thyroid Stimulating Hormone 1.338 mcIU/mL (0.340-5.600)
[2020-12-30 20:51] LABS: VBG HCO3 24 mEq/L (21-27); VBG PCO2 33 mmHg (41-51); VBG PH 7.46 pH Units (7.32-7.42); VBG PO2 86 mmHg (25-50)
[2020-12-30 23:10] LABS: Adenovirus Not Detected (Not Detect); Bordetella Pertussis Not Detected (Not Detect); Chlamydophila pneumoniae Not Detected (Not Detect); Coronavirus 229E Not Detected (Not Detect); Coronavirus HKU1 Not Detected (Not Detect); Coronavirus NL63 Not Detected (Not Detect); Coronavirus OC43 Not Detected (Not Detect); Human Metapneumovirus Not Detected (Not Detect); Human Rhinovirus/Enterovirus Not Detected (Not Detect); Influenza A Subtype 2009 H1 Not Detected (Not Detect); Influenza B Not Detected (Not Detect); Mycoplasma pneumoniae Not Detected (Not Detect); Parainfluenza Virus 1 Not Detected (Not Detect); Parainfluenza Virus 2 Not Detected (Not Detect); Parainfluenza Virus 3 Not Detected (Not Detect); Parainfluenza Virus 4 Not Detected (Not Detect); Respiratory Syncytial Virus Not Detected (Not Detect); SARS-CoV-2 Not Detected (Not Detect)
[2020-12-30] MEDS ORDERED: Naloxone 0.4 MG/ML INJ IVP PRN (23:45)
[2020-12-30] MEDS ORDERED: Saliva Stimulant 44.3ml BOTTLE PO PRN (23:49)
[2020-12-30] MEDS ORDERED: D5% in Water 1,000 ML IVC PRN (23:51)
[2020-12-30] MEDS ORDERED: *HR* Dextrose 50 % in Water (Syg) 50 ML SYRINGE IVP PRN (23:51)
[2020-12-30] MEDS ORDERED: Dextrose Gel 15 GM/37.5 ML TUBE PO PRN ×2 (23:51)
[2020-12-31] MEDS ORDERED: Gadolinium Contrast Agent (WT Based) IV PRN (00:50)
[2020-12-31] MEDS: Acetaminophen 325 MG TABLET PO PRN ×3 (00:54→20:28)
[2020-12-31] MEDS ORDERED: Isovue-370 500 ML BOTTLE IVP ONE (01:18)
[2020-12-31 01:56] LABS: Acetaminophen < 10 mcg/mL (10-20); Calcium 7.7 mg/dL (8.6-10.3); Potassium 4.2 mEq/L (3.5-5.1); Salicylate < 2.5 mg/dL (15.0-30.0)
[2020-12-31 02:14] LABS: Estimated Average Glucose 298 mg/dl
[2020-12-31] MEDS ORDERED: 0.9 % Sodium Chloride 1,000 ML IVC ONE (02:14)
[2020-12-31 03:09] LABS: ABG Base Excess -4 mEq/L (-2 to 3); ABG HCO3 21 mEq/L (21-27); ABG Oxygen Saturation 94 % (95-98); ABG PCO2 37 mmHg (35-45); ABG PH 7.36 pH Units (7.32-7.45); ABG PO2 71 mmHg (85-104); ABG TCO2 22 mEq/L (20-26)
[2020-12-31] MEDS: Vancomycin 1,250 MG/262.5 ML IV.SOLN IVPB SCH ×2 (03:32→14:20)
[2020-12-31] MEDS: Ipratropium/Albuterol Neb 3 ML IH SCH ×7 (03:51→23:15)
[2020-12-31] MEDS ORDERED: MethylPREDNISolone 40 MG/ML VIAL IVP SCH (04:00)
[2020-12-31] MEDS: 0.9 % Sodium Chloride 1,000 ML IVC SCH ×2 (04:47→17:22)
[2020-12-31] MEDS: cefTRIAXone 2,000 MG in 0.9 % Sodium Chloride Mini Bag 100 ML IVPB SCH ×2 (06:36→17:21)
[2020-12-31] MEDS: Insulin LISPRO 300 UNITS/3 ML VIAL SUBQ SCH ×4 (06:58→23:41)
[2020-12-31] MEDS ORDERED: 0.9 % Sodium Chloride 500 ML IVC ONE ×2 (07:22→13:42)
[2020-12-31] MEDS: Budesonide/Formoterol 160/4.5 1 PUFF INH IH SCH ×2 (07:51→19:41)
[2020-12-31] MEDS ORDERED: WATER IVPB SCH (08:00)
[2020-12-31] MEDS ORDERED: ACYCLOVIR IVPB SCH (08:00)
[2020-12-31] MEDS ORDERED: D5 IVPB SCH (08:00)
[2020-12-31] MEDS: MethylPREDNISolone 40 MG/ML VIAL IVP SCH ×2 (08:40→20:26)
[2020-12-31] MEDS: Chlorhexidine Rinse 15 ML MOUTHWASH MM SCH ×2 (08:44→20:26)
[2020-12-31] MEDS: Azithromycin 500 MG in 0.9 % Sodium Chloride 250 ML IVPB SCH (08:44)
[2020-12-31] MEDS: Nicotine 14 MG PATCH.TD24 TD SCH (08:44)
[2020-12-31] MEDS: diazePAM 5 MG TABLET PO SCH (08:45)
[2020-12-31] MEDS ORDERED: cefTRIAXone 2,000 MG in 0.9 % Sodium Chloride Mini Bag 100 ML IVPB SCH (09:00)
[2020-12-31] MEDS: *HR* Heparin 5,000 UNIT/ML VIAL SQ SCH ×3 (10:06→20:26)
[2020-12-31 15:52] LABS: Sodium, Urine 24.6 mEq/L
[2020-12-31 17:41] LABS: Mean Corpuscular HGB Conc 32.1 g/dL (31.6-35.5); Mean Corpuscular Hemoglobin 28.4 pg (28.0-33.3); Mean Corpuscular Volume 88.7 fL (83.0-100.0); Mean Platelet Volume 9.6 fL (9.4-12.4); Platelet Count 251 K/mcL (140-400); Red Blood Count 3.27 M/mcL (3.82-4.97); White Blood Count 15.3 K/mcL (4.3-11.1)
[2020-12-31 17:53] LABS: BUN/Creatinine Ratio 16 (6-26); Blood Urea Nitrogen 15 mg/dL (6-20); C-Reactive Protein > 300 mg/L (Less than 10); Carbon Dioxide 21 mEq/L (23-29); Chloride 103 mEq/L (98-107); Creatine Kinase 212 Units/L (30-223); Glucose 362 mg/dL (70-105); Lactate Dehydrogenase 242 Units/L (140-271); Magnesium 1.6 mg/dL (1.6-2.6); Osmolality,Calculated 289 (280-300); Phosphorous 2.3 mg/dL (2.7-4.5); Potassium 3.5 mEq/L (3.5-5.1); Sodium 132 mEq/L (136-145); Troponin I < 0.03 ng/mL (< 0.04); eGFR For African Americans > 60 (> 60); eGFR For Non-African Americans > 60 (> 60)
[2020-12-31 18:14] LABS: Folate 9.5 ng/mL (3.0-16.0)
[2020-12-31 18:23] LABS: Hemoglobin 9.3 g/dL (11.5-15.4)
[2020-12-31 18:29] LABS: Lymphocytes # 1.7 K/mcL (0.6-4.6); Monocytes # 0.2 K/mcL (0.0-1.3); Neutrophils # 12.9 K/mcL (1.6-8.9); Reactive Lymphocytes Present (Not Present)
[2020-12-31 18:30] LABS: Dohle Bodies Present (Not Present)
[2020-12-31] MEDS ORDERED: *HR* Metformin 500 MG TABLET PO SCH (21:00)
[2021-01-01] MEDS: 0.9 % Sodium Chloride 1,000 ML IVC SCH (00:05)
[2021-01-01] MEDS: *HR* Promethazine 25 MG/ML VIAL IM PRN ×2 (00:08→20:40)
[2021-01-01] MEDS ORDERED: Ibuprofen 600 MG TABLET PO ONE (00:34)
[2021-01-01] MEDS: Ipratropium/Albuterol Neb 3 ML IH SCH ×5 (03:43→20:42)
[2021-01-01] MEDS: Insulin LISPRO 300 UNITS/3 ML VIAL SUBQ SCH ×3 (06:05→18:44)
[2021-01-01] MEDS: *HR* Heparin 5,000 UNIT/ML VIAL SQ SCH ×2 (06:05→18:20)
[2021-01-01] MEDS: cefTRIAXone 2,000 MG in 0.9 % Sodium Chloride Mini Bag 100 ML IVPB SCH ×2 (06:06→18:43)
[2021-01-01 06:56] LABS: Basophils # 0.1 K/mcL (0.0-0.2); Basophils % 0.6 %; Hematocrit 29.8 % (35.3-44.9); Hemoglobin 9.5 g/dL (11.5-15.4); Immature Granulocytes % 2.1 % (0-4); Lymphocytes # 0.5 K/mcL (0.6-4.6); Lymphocytes % 3.2 %; Mean Corpuscular HGB Conc 31.9 g/dL (31.6-35.5); Mean Corpuscular Hemoglobin 28.7 pg (28.0-33.3); Mean Platelet Volume 9.6 fL (9.4-12.4); Monocytes # 0.6 K/mcL (0.0-1.3); Monocytes % 4.4 %; Platelet Count 255 K/mcL (140-400); Red Blood Count 3.31 M/mcL (3.82-4.97); Red Cell Distribution Width 14.3 % (11.5-14.5); Segmented Neutrophils % 89.7 %; White Blood Count 14.5 K/mcL (4.3-11.1)
[2021-01-01 07:14] LABS: BUN/Creatinine Ratio 16 (6-26); Blood Urea Nitrogen 13 mg/dL (6-20); Calcium 7.6 mg/dL (8.6-10.3); Carbon Dioxide 23 mEq/L (23-29); Chloride 102 mEq/L (98-107); Glucose 317 mg/dL (70-105); Osmolality,Calculated 290 (280-300); Potassium 3.4 mEq/L (3.5-5.1); Sodium 134 mEq/L (136-145); eGFR For African Americans > 60 (> 60); eGFR For Non-African Americans > 60 (> 60)
[2021-01-01] MEDS: Budesonide/Formoterol 160/4.5 1 PUFF INH IH SCH ×2 (07:26→20:42)
[2021-01-01] MEDS: MethylPREDNISolone 40 MG/ML VIAL IVP SCH ×2 (08:19→20:16)
[2021-01-01] MEDS: Chlorhexidine Rinse 15 ML MOUTHWASH MM SCH ×2 (08:19→20:16)
[2021-01-01] MEDS: diazePAM 5 MG TABLET PO SCH (08:19)
[2021-01-01] MEDS: Nicotine 14 MG PATCH.TD24 TD SCH (08:19)
[2021-01-01] MEDS: Azithromycin 500 MG in 0.9 % Sodium Chloride 250 ML IVPB SCH (11:17)
[2021-01-01] MEDS: Venlafaxine XR (24 HR) 150 MG CAP.ER.24H PO SCH (11:18)
[2021-01-01] MEDS: tiZANidine 4 MG TABLET PO SCH ×2 (11:19→20:16)
[2021-01-01] MEDS: Loratadine 10 MG TABLET PO SCH (11:19)
[2021-01-01] MEDS: Metoprolol XL (24 HR) Succ 50 MG TAB.ER.24H PO SCH ×2 (11:23→20:16)
[2021-01-01] MEDS: BREXPIPRAZOLE 3 MG PO SCH (12:00)
[2021-01-01] MEDS: Gabapentin 300 MG CAPSULE PO SCH ×2 (15:15→20:16)
[2021-01-01] MEDS ORDERED: Furosemide 40 MG/4 ML VIAL IVP ONE (17:33)
[2021-01-01] MEDS ORDERED: Perflutren Lipid Microsphere 1.3 ML in 0.9 % Sodium Chloride 8.7 ML IVP PRN (17:34)
[2021-01-01 17:35] LABS: Influenza A PCR Negative (Negative); Influenza B PCR Negative (Negative); Resp. Syncytial Virus PCR Negative (Negative); SARS-CoV-2 by PCR (In House) Negative (Negative)
[2021-01-01] MEDS: lamoTRIgine 100 MG TABLET PO SCH (20:16)
[2021-01-01] MEDS: Nystatin Cream 15 GM TUBE TP SCH ×2 (20:40→20:41)
[2021-01-01] MEDS: Insulin DETEMIR 100 UNIT/ML X5UNITS SUBQ SCH (21:53)
[2021-01-02] MEDS: Ipratropium/Albuterol Neb 3 ML IH SCH ×6 (00:49→20:39)
[2021-01-02] MEDS: *HR* Heparin 5,000 UNIT/ML VIAL SQ SCH ×4 (00:52→20:45)
[2021-01-02] MEDS: Acetaminophen 325 MG TABLET PO PRN (01:08)
[2021-01-02 01:24] LABS: Basophils # 0.1 K/mcL (0.0-0.2); Basophils % 0.5 %; Hematocrit 32.3 % (35.3-44.9); Hemoglobin 10.3 g/dL (11.5-15.4); Immature Granulocytes % 2.1 % (0-4); Lymphocytes # 0.3 K/mcL (0.6-4.6); Lymphocytes % 2.6 %; Mean Corpuscular HGB Conc 31.9 g/dL (31.6-35.5); Mean Corpuscular Hemoglobin 28.3 pg (28.0-33.3); Mean Corpuscular Volume 88.7 fL (83.0-100.0); Mean Platelet Volume 9.6 fL (9.4-12.4); Monocytes # 0.4 K/mcL (0.0-1.3); Monocytes % 3.6 %; Neutrophils # 10.7 K/mcL (1.6-8.9); Platelet Count 317 K/mcL (140-400); Red Blood Count 3.64 M/mcL (3.82-4.97); Red Cell Distribution Width 14.5 % (11.5-14.5); Segmented Neutrophils % 91.2 %; White Blood Count 11.8 K/mcL (4.3-11.1)
[2021-01-02 01:43] LABS: BUN/Creatinine Ratio 12 (6-26); Blood Urea Nitrogen 8 mg/dL (6-20); Calcium 8.1 mg/dL (8.6-10.3); Carbon Dioxide 27 mEq/L (23-29); Chloride 96 mEq/L (98-107); Glucose 254 mg/dL (70-105); Osmolality,Calculated 287 (280-300); Potassium 3.8 mEq/L (3.5-5.1); Sodium 135 mEq/L (136-145); eGFR For African Americans > 60 (> 60); eGFR For Non-African Americans > 60 (> 60)
[2021-01-02 05:04] LABS: ABG Base Excess 4 mEq/L (-2 to 3); ABG HCO3 27 mEq/L (21-27); ABG Oxygen Saturation 91 % (95-98); ABG PCO2 34 mmHg (35-45); ABG PH 7.51 pH Units (7.32-7.45); ABG PO2 54 mmHg (85-104); ABG TCO2 28 mEq/L (20-26)
[2021-01-02] MEDS: Insulin LISPRO 300 UNITS/3 ML VIAL SUBQ SCH ×4 (06:04→18:33)
[2021-01-02] MEDS: cefTRIAXone 2,000 MG in 0.9 % Sodium Chloride Mini Bag 100 ML IVPB SCH (06:11)
[2021-01-02] MEDS: Budesonide/Formoterol 160/4.5 1 PUFF INH IH SCH ×2 (07:54→20:38)
[2021-01-02] MEDS ORDERED: cefTRIAXone 2,000 MG in 0.9 % Sodium Chloride Mini Bag 100 ML IVPB SCH (09:00)
[2021-01-02] MEDS: Nicotine 14 MG PATCH.TD24 TD SCH (10:56)
[2021-01-02] MEDS: Chlorhexidine Rinse 15 ML MOUTHWASH MM SCH ×2 (10:57→20:46)
[2021-01-02] MEDS: MethylPREDNISolone 40 MG/ML VIAL IVP SCH ×2 (10:57→15:25)
[2021-01-02] MEDS: Azithromycin 500 MG in 0.9 % Sodium Chloride 250 ML IVPB SCH (10:57)
[2021-01-02] MEDS: Pantoprazole 40 MG VIAL IVP SCH (10:58)
[2021-01-02] MEDS: Nystatin Cream 15 GM TUBE TP SCH (11:25)
[2021-01-02] MEDS: Venlafaxine XR (24 HR) 150 MG CAP.ER.24H PO SCH (11:25)
[2021-01-02] MEDS: Loratadine 10 MG TABLET PO SCH (11:25)
[2021-01-02] MEDS: Gabapentin 300 MG CAPSULE PO SCH ×3 (11:25→20:44)
[2021-01-02] MEDS: Metoprolol XL (24 HR) Succ 50 MG TAB.ER.24H PO SCH ×2 (11:26→20:43)
[2021-01-02] MEDS: tiZANidine 4 MG TABLET PO SCH ×2 (11:26→20:44)
[2021-01-02] MEDS: BREXPIPRAZOLE 3 MG PO SCH (11:26)
[2021-01-02] MEDS: diazePAM 5 MG TABLET PO SCH (11:26)
[2021-01-02] MEDS ORDERED: Acetaminophen IV 1,000 MG/100 ML BAG IVPB PRN (11:57)
[2021-01-02] MEDS: *HR* Promethazine 25 MG/ML VIAL IM PRN (12:16)
[2021-01-02] MEDS: Haloperidol Lactate 5 MG/ML VIAL IVP ONE (15:24)
[2021-01-02] MEDS: Vancomycin 1,250 MG/262.5 ML IV.SOLN IVPB SCH (15:25)
[2021-01-02] MEDS: Meropenem 1,000 MG in 0.9 % Sodium Chloride Mini Bag 100 ML IVPB SCH (15:50)
[2021-01-02] MEDS: lamoTRIgine 100 MG TABLET PO SCH (20:44)
[2021-01-02] MEDS: Insulin DETEMIR 100 UNIT/ML X5UNITS SUBQ SCH (20:46)
[2021-01-03] MEDS: Meropenem 1,000 MG in 0.9 % Sodium Chloride Mini Bag 100 ML IVPB SCH ×3 (00:10→17:21)
[2021-01-03] MEDS: MethylPREDNISolone 40 MG/ML VIAL IVP SCH ×3 (00:12→17:20)
[2021-01-03] MEDS: Ipratropium/Albuterol Neb 3 ML IH SCH ×7 (00:29→23:26)
[2021-01-03 03:17] LABS: Basophils # 0.1 K/mcL (0.0-0.2); Basophils % 0.9 %; Eosinophils % 0.2 %; Hematocrit 33.3 % (35.3-44.9); Hemoglobin 10.5 g/dL (11.5-15.4); Immature Granulocytes % 6.8 % (0-4); Lymphocytes # 0.6 K/mcL (0.6-4.6); Lymphocytes % 6.8 %; Mean Corpuscular HGB Conc 31.5 g/dL (31.6-35.5); Mean Corpuscular Hemoglobin 28.3 pg (28.0-33.3); Mean Corpuscular Volume 89.8 fL (83.0-100.0); Mean Platelet Volume 10.2 fL (9.4-12.4); Monocytes # 0.4 K/mcL (0.0-1.3); Monocytes % 4.8 %; Nucleated Red Blood Cells 0.4 /100 WBC (0); Platelet Count 247 K/mcL (140-400); Red Blood Count 3.71 M/mcL (3.82-4.97); Red Cell Distribution Width 14.7 % (11.5-14.5); Segmented Neutrophils % 80.5 %; White Blood Count 8.1 K/mcL (4.3-11.1)
[2021-01-03 03:25] LABS: Neutrophils # 6.5 K/mcL (1.6-8.9)
[2021-01-03 03:48] LABS: Platelet Estimate Normal (Normal)
[2021-01-03 03:52] LABS: BUN/Creatinine Ratio 16 (6-26); Blood Urea Nitrogen 10 mg/dL (6-20); C-Reactive Protein 257 mg/L (Less than 10); Calcium 8.4 mg/dL (8.6-10.3); Carbon Dioxide 29 mEq/L (23-29); Chloride 98 mEq/L (98-107); Glucose 196 mg/dL (70-105); Osmolality,Calculated 288 (280-300); Potassium 3.8 mEq/L (3.5-5.1); Sodium 137 mEq/L (136-145); eGFR For African Americans > 60 (> 60); eGFR For Non-African Americans > 60 (> 60)
[2021-01-03] MEDS: Nystatin Cream 15 GM TUBE TP SCH ×3 (05:55→20:50)
[2021-01-03] MEDS ORDERED: Vancomycin 1,250 MG/262.5 ML IV.SOLN IVPB SCH (06:00)
[2021-01-03] MEDS: *HR* Heparin 5,000 UNIT/ML VIAL SQ SCH ×3 (06:07→20:48)
[2021-01-03] MEDS: Vancomycin 1,250 MG/262.5 ML IV.SOLN IVPB SCH ×2 (06:40→20:54)
[2021-01-03] MEDS: Budesonide/Formoterol 160/4.5 1 PUFF INH IH SCH ×2 (08:08→20:35)
[2021-01-03] MEDS ORDERED: Haloperidol Lactate 5 MG/ML VIAL IVP SCH (09:00)
[2021-01-03] MEDS: Venlafaxine XR (24 HR) 150 MG CAP.ER.24H PO SCH (10:21)
[2021-01-03] MEDS: Loratadine 10 MG TABLET PO SCH (10:21)
[2021-01-03] MEDS: Nicotine 14 MG PATCH.TD24 TD SCH (10:21)
[2021-01-03] MEDS: Metoprolol XL (24 HR) Succ 50 MG TAB.ER.24H PO SCH ×2 (10:21→20:48)
[2021-01-03] MEDS: Haloperidol Lactate 5 MG/ML VIAL IVP ONE (12:35)
[2021-01-03] MEDS: Furosemide 20 MG/2 ML VIAL IVP SCH (12:36)
[2021-01-03] MEDS: Pantoprazole 40 MG VIAL IVP SCH (12:36)
[2021-01-03] MEDS: Gabapentin 300 MG CAPSULE PO SCH ×3 (12:43→20:49)
[2021-01-03] MEDS: Chlorhexidine Rinse 15 ML MOUTHWASH MM SCH ×2 (12:43→20:48)
[2021-01-03] MEDS: BREXPIPRAZOLE 3 MG PO SCH (12:43)
[2021-01-03] MEDS: Insulin LISPRO 300 UNITS/3 ML VIAL SUBQ SCH ×3 (12:47→20:49)
[2021-01-03] MEDS: Azithromycin 500 MG in 0.9 % Sodium Chloride 250 ML IVPB SCH (13:15)
[2021-01-03] MEDS: diazePAM 5 MG TABLET PO SCH (14:23)
[2021-01-03] MEDS: tiZANidine 4 MG TABLET PO SCH ×2 (15:21→22:11)
[2021-01-03] MEDS: Lactobacillus 1 EACH CAP.SPRINK PO SCH ×2 (17:24→20:54)
[2021-01-03] MEDS: lamoTRIgine 100 MG TABLET PO SCH (20:48)
[2021-01-03] MEDS: Insulin DETEMIR 100 UNIT/ML X5UNITS SUBQ SCH (20:55)
[2021-01-04] MEDS: MethylPREDNISolone 40 MG/ML VIAL IVP SCH ×4 (00:47→23:31)
[2021-01-04] MEDS: Meropenem 1,000 MG in 0.9 % Sodium Chloride Mini Bag 100 ML IVPB SCH ×4 (00:47→23:32)
[2021-01-04 01:48] LABS: Hematocrit 31.4 % (35.3-44.9); Hemoglobin 9.7 g/dL (11.5-15.4); Lymphocytes # 0.6 K/mcL (0.6-4.6); Mean Corpuscular HGB Conc 30.9 g/dL (31.6-35.5); Mean Corpuscular Volume 90.8 fL (83.0-100.0); Mean Platelet Volume 9.5 fL (9.4-12.4); Platelet Count 281 K/mcL (140-400); Red Blood Count 3.46 M/mcL (3.82-4.97); Red Cell Distribution Width 14.5 % (11.5-14.5); White Blood Count 7.3 K/mcL (4.3-11.1)
[2021-01-04 02:03] LABS: BUN/Creatinine Ratio 16 (6-26); Blood Urea Nitrogen 10 mg/dL (6-20); Calcium 8.2 mg/dL (8.6-10.3); Carbon Dioxide 33 mEq/L (23-29); Chloride 93 mEq/L (98-107); Glucose 276 mg/dL (70-105); Osmolality,Calculated 301 (280-300); Potassium 3.2 mEq/L (3.5-5.1); Sodium 141 mEq/L (136-145); eGFR For African Americans > 60 (> 60); eGFR For Non-African Americans > 60 (> 60)
[2021-01-04 02:36] LABS: Monocytes # 0.4 K/mcL (0.0-1.3); Neutrophils # 5.7 K/mcL (1.6-8.9); Platelet Estimate Normal (Normal); Toxic Granulation Present (Not Present)
[2021-01-04] MEDS: Azithromycin 500 MG in 0.9 % Sodium Chloride 250 ML IVPB SCH ×2 (03:30→15:55)
[2021-01-04] MEDS: Ipratropium/Albuterol Neb 3 ML IH SCH ×6 (04:12→22:40)
[2021-01-04] MEDS: *HR* Heparin 5,000 UNIT/ML VIAL SQ SCH ×3 (05:42→20:31)
[2021-01-04] MEDS: Budesonide/Formoterol 160/4.5 1 PUFF INH IH SCH ×2 (07:17→20:18)
[2021-01-04] MEDS: diazePAM 5 MG TABLET PO SCH (08:19)
[2021-01-04] MEDS: Gabapentin 300 MG CAPSULE PO SCH ×3 (08:20→22:52)
[2021-01-04] MEDS: Lactobacillus 1 EACH CAP.SPRINK PO SCH ×2 (08:20→20:30)
[2021-01-04] MEDS: Metoprolol XL (24 HR) Succ 50 MG TAB.ER.24H PO SCH (08:20)
[2021-01-04] MEDS: Chlorhexidine Rinse 15 ML MOUTHWASH MM SCH ×2 (08:20→20:31)
[2021-01-04] MEDS: Loratadine 10 MG TABLET PO SCH (08:20)
[2021-01-04] MEDS: tiZANidine 4 MG TABLET PO SCH ×2 (08:20→22:52)
[2021-01-04] MEDS: Pantoprazole 40 MG VIAL IVP SCH (08:21)
[2021-01-04] MEDS: Furosemide 20 MG/2 ML VIAL IVP SCH (08:21)
[2021-01-04] MEDS: Nicotine 14 MG PATCH.TD24 TD SCH (08:21)
[2021-01-04] MEDS: BREXPIPRAZOLE 3 MG PO SCH (08:22)
[2021-01-04] MEDS: Vancomycin 1,250 MG/262.5 ML IV.SOLN IVPB SCH (08:22)
[2021-01-04] MEDS: Nystatin Cream 15 GM TUBE TP SCH ×2 (08:24→20:49)
[2021-01-04] MEDS: Venlafaxine XR (24 HR) 150 MG CAP.ER.24H PO SCH (08:24)
[2021-01-04] MEDS: Insulin LISPRO 300 UNITS/3 ML VIAL SUBQ SCH ×4 (08:59→20:49)
[2021-01-04] MEDS ORDERED: Acetaminophen 325 MG TABLET PO PRN (11:35)
[2021-01-04] MEDS ORDERED: Amiodarone Premix 150 MG/100 ML BAG IVPB ONE (16:05)
[2021-01-04] MEDS ORDERED: Insulin Human Regular 10 UNIT in 0.9 % Sodium Chloride 10 ML IV PRN (17:22)
[2021-01-04] MEDS ORDERED: Ketorolac 30 MG/ML VIAL IVP PRN (17:32)
[2021-01-04] MEDS: Insulin DETEMIR 100 UNIT/ML X5UNITS SUBQ SCH ×2 (18:05→20:48)
[2021-01-04] MEDS: Topiramate 25 MG CAP.SPRINK PO SCH (18:09)
[2021-01-04] MEDS: lamoTRIgine 100 MG TABLET PO SCH (20:30)
[2021-01-04] MEDS: Furosemide 40 MG/4 ML VIAL IVP SCH (20:31)
[2021-01-04] MEDS ORDERED: Furosemide 20 MG/2 ML VIAL IVP SCH (21:00)
[2021-01-04] MEDS: Vancomycin 1,500 MG/265 ML IV.SOLN IVPB SCH (23:32)
[2021-01-05 00:56] LABS: Basophils % 0.1 %; Hematocrit 32.6 % (35.3-44.9); Hemoglobin 10.4 g/dL (11.5-15.4); Immature Granulocytes % 10.1 % (0-4); Lymphocytes # 0.9 K/mcL (0.6-4.6); Lymphocytes % 9.2 %; Mean Corpuscular HGB Conc 31.9 g/dL (31.6-35.5); Mean Corpuscular Hemoglobin 29.1 pg (28.0-33.3); Mean Corpuscular Volume 91.1 fL (83.0-100.0); Mean Platelet Volume 9.7 fL (9.4-12.4); Monocytes # 0.7 K/mcL (0.0-1.3); Monocytes % 6.9 %; Neutrophils # 7.4 K/mcL (1.6-8.9); Platelet Count 361 K/mcL (140-400); Red Blood Count 3.58 M/mcL (3.82-4.97); Red Cell Distribution Width 14.4 % (11.5-14.5); Segmented Neutrophils % 73.7 %
[2021-01-05 01:00] LABS: BUN/Creatinine Ratio 21 (6-26); Blood Urea Nitrogen 14 mg/dL (6-20); Calcium 8.4 mg/dL (8.6-10.3); Carbon Dioxide 33 mEq/L (23-29); Chloride 91 mEq/L (98-107); Glucose 385 mg/dL (70-105); Osmolality,Calculated 300 (280-300); Potassium 3.3 mEq/L (3.5-5.1); Sodium 137 mEq/L (136-145); eGFR For African Americans > 60 (> 60); eGFR For Non-African Americans > 60 (> 60)
[2021-01-05] MEDS: Ipratropium/Albuterol Neb 3 ML IH SCH ×6 (03:47→23:54)
[2021-01-05] MEDS: *HR* Heparin 5,000 UNIT/ML VIAL SQ SCH ×3 (05:10→20:31)
[2021-01-05] MEDS: Budesonide/Formoterol 160/4.5 1 PUFF INH IH SCH ×2 (07:40→20:23)
[2021-01-05] MEDS: Gabapentin 300 MG CAPSULE PO SCH ×3 (07:46→20:31)
[2021-01-05] MEDS: Topiramate 25 MG CAP.SPRINK PO SCH (07:47)
[2021-01-05] MEDS: tiZANidine 4 MG TABLET PO SCH (07:47)
[2021-01-05] MEDS: Loratadine 10 MG TABLET PO SCH (07:47)
[2021-01-05] MEDS: diazePAM 5 MG TABLET PO SCH (07:47)
[2021-01-05] MEDS: Venlafaxine XR (24 HR) 150 MG CAP.ER.24H PO SCH (07:47)
[2021-01-05] MEDS: Lactobacillus 1 EACH CAP.SPRINK PO SCH ×2 (07:47→20:31)
[2021-01-05] MEDS: Meropenem 1,000 MG in 0.9 % Sodium Chloride Mini Bag 100 ML IVPB SCH ×2 (07:48→17:01)
[2021-01-05] MEDS: MethylPREDNISolone 40 MG/ML VIAL IVP SCH ×2 (07:48→14:43)
[2021-01-05] MEDS: Pantoprazole 40 MG VIAL IVP SCH (07:48)
[2021-01-05] MEDS: Furosemide 40 MG/4 ML VIAL IVP SCH ×2 (07:50→20:29)
[2021-01-05] MEDS: Chlorhexidine Rinse 15 ML MOUTHWASH MM SCH ×2 (08:29→20:36)
[2021-01-05] MEDS: Insulin DETEMIR 100 UNIT/ML X5UNITS SUBQ SCH ×2 (08:35→20:36)
[2021-01-05] MEDS: Metoprolol XL (24 HR) Succ 25 MG TAB.ER.24H PO SCH ×2 (08:35→20:30)
[2021-01-05] MEDS: Insulin LISPRO 300 UNITS/3 ML VIAL SUBQ SCH ×5 (08:36→20:35)
[2021-01-05] MEDS: Nystatin Cream 15 GM TUBE TP SCH ×2 (10:02→20:35)
[2021-01-05] MEDS: Nicotine 14 MG PATCH.TD24 TD SCH (10:02)
[2021-01-05] MEDS: BREXPIPRAZOLE 3 MG PO SCH (10:02)
[2021-01-05] MEDS: Vancomycin 1,500 MG/265 ML IV.SOLN IVPB SCH ×2 (10:06→20:31)
[2021-01-05] MEDS ORDERED: 0.9 % Sodium Chloride 250 ML IVC ONE (11:00)
[2021-01-05] MEDS: Azithromycin 500 MG in 0.9 % Sodium Chloride 250 ML IVPB SCH (14:42)
[2021-01-05] MEDS: lamoTRIgine 100 MG TABLET PO SCH (20:29)
[2021-01-06] MEDS: Meropenem 1,000 MG in 0.9 % Sodium Chloride Mini Bag 100 ML IVPB SCH ×3 (00:13→17:11)
[2021-01-06] MEDS: Potassium Chloride Elixir 20 MEQ/15 ML UDC PO SCH ×4 (00:14→20:53)
[2021-01-06] MEDS: tiZANidine 4 MG TABLET PO SCH ×2 (00:14→08:06)
[2021-01-06 03:22] LABS: Hematocrit 33.4 % (35.3-44.9); Hemoglobin 10.4 g/dL (11.5-15.4); Lymphocytes # 2.4 K/mcL (0.6-4.6); Mean Corpuscular HGB Conc 31.1 g/dL (31.6-35.5); Mean Corpuscular Hemoglobin 28.2 pg (28.0-33.3); Mean Corpuscular Volume 90.5 fL (83.0-100.0); Mean Platelet Volume 9.3 fL (9.4-12.4); Platelet Count 391 K/mcL (140-400); Red Blood Count 3.69 M/mcL (3.82-4.97); Red Cell Distribution Width 14.2 % (11.5-14.5); White Blood Count 10.8 K/mcL (4.3-11.1)
[2021-01-06 03:43] LABS: BUN/Creatinine Ratio 29 (6-26); Blood Urea Nitrogen 18 mg/dL (6-20); Calcium 8.6 mg/dL (8.6-10.3); Carbon Dioxide 38 mEq/L (23-29); Chloride 92 mEq/L (98-107); Glucose 194 mg/dL (70-105); Osmolality,Calculated 293 (280-300); Potassium 3.3 mEq/L (3.5-5.1); Sodium 138 mEq/L (136-145); eGFR For African Americans > 60 (> 60); eGFR For Non-African Americans > 60 (> 60)
[2021-01-06 03:52] LABS: Platelet Estimate Normal (Normal); Reactive Lymphocytes Present (Not Present)
[2021-01-06] MEDS: Ipratropium/Albuterol Neb 3 ML IH SCH ×5 (04:00→20:54)
[2021-01-06] MEDS: *HR* Heparin 5,000 UNIT/ML VIAL SQ SCH ×3 (05:34→20:53)
[2021-01-06] MEDS: Budesonide/Formoterol 160/4.5 1 PUFF INH IH SCH ×2 (07:30→20:54)
[2021-01-06] MEDS: Chlorhexidine Rinse 15 ML MOUTHWASH MM SCH ×2 (07:59→20:53)
[2021-01-06] MEDS: Pantoprazole 40 MG VIAL IVP SCH (07:59)
[2021-01-06] MEDS: Insulin LISPRO 300 UNITS/3 ML VIAL SUBQ SCH ×5 (08:00→20:53)
[2021-01-06] MEDS: Venlafaxine XR (24 HR) 150 MG CAP.ER.24H PO SCH (08:01)
[2021-01-06] MEDS: predniSONE 20 MG TABLET PO SCH (08:01)
[2021-01-06] MEDS: Lactobacillus 1 EACH CAP.SPRINK PO SCH ×2 (08:01→20:53)
[2021-01-06] MEDS: Nicotine 14 MG PATCH.TD24 TD SCH (08:01)
[2021-01-06] MEDS: Loratadine 10 MG TABLET PO SCH (08:05)
[2021-01-06] MEDS: Topiramate 25 MG CAP.SPRINK PO SCH (08:05)
[2021-01-06] MEDS: Metoprolol XL (24 HR) Succ 25 MG TAB.ER.24H PO SCH (08:06)
[2021-01-06] MEDS: diazePAM 5 MG TABLET PO SCH (08:06)
[2021-01-06] MEDS: Gabapentin 300 MG CAPSULE PO SCH ×3 (08:06→20:53)
[2021-01-06] MEDS: BREXPIPRAZOLE 3 MG PO SCH (08:06)
[2021-01-06] MEDS: Furosemide 40 MG/4 ML VIAL IVP SCH (08:09)
[2021-01-06] MEDS: Insulin DETEMIR 100 UNIT/ML X5UNITS SUBQ SCH ×2 (08:13→20:53)
[2021-01-06] MEDS: Vancomycin 1,500 MG/265 ML IV.SOLN IVPB SCH (08:13)
[2021-01-06] MEDS: Nystatin Cream 15 GM TUBE TP SCH ×2 (08:14→20:53)
[2021-01-06] MEDS ORDERED: 0.9 % Sodium Chloride 250 ML IVC ONE (09:03)
[2021-01-06 10:17] LABS: ABG Base Excess 10 mEq/L (-2 to 3); ABG HCO3 35 mEq/L (21-27); ABG Oxygen Saturation 87 % (95-98); ABG PCO2 51 mmHg (35-45); ABG PH 7.45 pH Units (7.32-7.45); ABG PO2 52 mmHg (85-104); ABG TCO2 37 mEq/L (20-26)
[2021-01-06] MEDS ORDERED: Isovue-370 500 ML BOTTLE IVP ONE (13:23)
[2021-01-06] MEDS: Azithromycin 500 MG in 0.9 % Sodium Chloride 250 ML IVPB SCH (14:20)
[2021-01-06] MEDS: lamoTRIgine 100 MG TABLET PO SCH (20:53)
[2021-01-07] MEDS: Meropenem 1,000 MG in 0.9 % Sodium Chloride Mini Bag 100 ML IVPB SCH ×3 (00:16→15:17)
[2021-01-07] MEDS: Ipratropium/Albuterol Neb 3 ML IH SCH ×7 (00:19→23:13)
[2021-01-07 01:42] LABS: Hematocrit 33.6 % (35.3-44.9); Hemoglobin 10.6 g/dL (11.5-15.4); Mean Corpuscular HGB Conc 31.5 g/dL (31.6-35.5); Mean Corpuscular Volume 91.8 fL (83.0-100.0); Mean Platelet Volume 9.6 fL (9.4-12.4); Platelet Count 450 K/mcL (140-400); Red Blood Count 3.66 M/mcL (3.82-4.97); Red Cell Distribution Width 14.2 % (11.5-14.5); White Blood Count 14.8 K/mcL (4.3-11.1)
[2021-01-07 02:02] LABS: BUN/Creatinine Ratio 26 (6-26); Blood Urea Nitrogen 15 mg/dL (6-20); Calcium 8.4 mg/dL (8.6-10.3); Carbon Dioxide 34 mEq/L (23-29); Chloride 96 mEq/L (98-107); Glucose 136 mg/dL (70-105); Osmolality,Calculated 285 (280-300); Potassium 3.6 mEq/L (3.5-5.1); Sodium 136 mEq/L (136-145); eGFR For African Americans > 60 (> 60); eGFR For Non-African Americans > 60 (> 60)
[2021-01-07 02:44] LABS: Eosinophils # 0.3 K/mcL (0.0-0.6); Lymphocytes # 3.6 K/mcL (0.6-4.6); Monocytes # 1.5 K/mcL (0.0-1.3)
[2021-01-07 02:45] LABS: Reactive Lymphocytes Present (Not Present); Toxic Granulation Present (Not Present)
[2021-01-07] MEDS: tiZANidine 4 MG TABLET PO SCH ×3 (03:33→20:54)
[2021-01-07] MEDS: *HR* Heparin 5,000 UNIT/ML VIAL SQ SCH ×3 (06:03→20:54)
[2021-01-07] MEDS: Budesonide/Formoterol 160/4.5 1 PUFF INH IH SCH ×2 (07:59→20:16)
[2021-01-07] MEDS: predniSONE 20 MG TABLET PO SCH (09:21)
[2021-01-07] MEDS: Lactobacillus 1 EACH CAP.SPRINK PO SCH ×2 (09:21→20:53)
[2021-01-07] MEDS: Loratadine 10 MG TABLET PO SCH (09:21)
[2021-01-07] MEDS: Topiramate 25 MG CAP.SPRINK PO SCH (09:21)
[2021-01-07] MEDS: Venlafaxine XR (24 HR) 150 MG CAP.ER.24H PO SCH (09:22)
[2021-01-07] MEDS: Insulin DETEMIR 100 UNIT/ML X5UNITS SUBQ SCH ×2 (09:22→20:55)
[2021-01-07] MEDS: Potassium Chloride Elixir 20 MEQ/15 ML UDC PO SCH ×3 (09:22→20:54)
[2021-01-07] MEDS: Chlorhexidine Rinse 15 ML MOUTHWASH MM SCH ×2 (09:23→20:53)
[2021-01-07] MEDS: Nicotine 14 MG PATCH.TD24 TD SCH (09:23)
[2021-01-07] MEDS: Pantoprazole 40 MG VIAL IVP SCH (09:23)
[2021-01-07] MEDS: Nystatin Cream 15 GM TUBE TP SCH ×2 (09:24→20:56)
[2021-01-07] MEDS: Insulin LISPRO 300 UNITS/3 ML VIAL SUBQ SCH ×4 (09:24→20:55)
[2021-01-07] MEDS: Gabapentin 300 MG CAPSULE PO SCH ×3 (09:25→15:16)
[2021-01-07] MEDS: BREXPIPRAZOLE 3 MG PO SCH (09:25)
[2021-01-07] MEDS: diazePAM 5 MG TABLET PO SCH ×2 (09:25→20:54)
[2021-01-07] MEDS ORDERED: 0.9 % Sodium Chloride 250 ML IVC ONE (09:37)
[2021-01-07] MEDS ORDERED: Lidocaine Viscous Oral Soln 15 ML SOLUTION MM PRN (09:37)
[2021-01-07] MEDS ORDERED: Albumin 25% 12.5gm/50mL 12.5 GM/50 ML IV.SOLN IVPB ONE (12:53)
[2021-01-07] MEDS: levoFLOXacin 750 MG/150 ML 750 MG/150 ML BAG IVPB SCH (14:24)
[2021-01-07] MEDS: Gabapentin 100 MG CAPSULE PO SCH (20:54)
[2021-01-07] MEDS: lamoTRIgine 100 MG TABLET PO SCH (20:54)
[2021-01-07] MEDS: Furosemide 20 MG/2 ML VIAL IVP SCH (20:55)
[2021-01-08] MEDS: Meropenem 1,000 MG in 0.9 % Sodium Chloride Mini Bag 100 ML IVPB SCH (00:12)
[2021-01-08] MEDS: Ipratropium/Albuterol Neb 3 ML IH SCH ×6 (03:41→23:37)
[2021-01-08] MEDS: *HR* Heparin 5,000 UNIT/ML VIAL SQ SCH ×3 (05:38→20:10)
[2021-01-08 06:05] LABS: Hematocrit 30.6 % (35.3-44.9); Hemoglobin 9.8 g/dL (11.5-15.4); Mean Corpuscular Hemoglobin 29.2 pg (28.0-33.3); Mean Corpuscular Volume 91.1 fL (83.0-100.0); Mean Platelet Volume 9.5 fL (9.4-12.4); Nucleated Red Blood Cells 0.1 /100 WBC (0); Platelet Count 476 K/mcL (140-400); Red Blood Count 3.36 M/mcL (3.82-4.97); Red Cell Distribution Width 14.1 % (11.5-14.5)
[2021-01-08 06:24] LABS: BUN/Creatinine Ratio 20 (6-26); Blood Urea Nitrogen 12 mg/dL (6-20); Calcium 8.9 mg/dL (8.6-10.3); Carbon Dioxide 33 mEq/L (23-29); Chloride 94 mEq/L (98-107); Glucose 269 mg/dL (70-105); Osmolality,Calculated 287 (280-300); Sodium 134 mEq/L (136-145); eGFR For African Americans > 60 (> 60); eGFR For Non-African Americans > 60 (> 60)
[2021-01-08] MEDS: Budesonide/Formoterol 160/4.5 1 PUFF INH IH SCH ×2 (08:05→19:43)
[2021-01-08] MEDS: Gabapentin 100 MG CAPSULE PO SCH ×3 (08:34→20:09)
[2021-01-08] MEDS: Lactobacillus 1 EACH CAP.SPRINK PO SCH ×2 (08:34→20:10)
[2021-01-08] MEDS: tiZANidine 4 MG TABLET PO SCH ×2 (08:34→20:09)
[2021-01-08] MEDS: Loratadine 10 MG TABLET PO SCH (08:35)
[2021-01-08] MEDS: diazePAM 5 MG TABLET PO SCH ×2 (08:35→20:10)
[2021-01-08] MEDS: Topiramate 25 MG CAP.SPRINK PO SCH (08:35)
[2021-01-08] MEDS: Venlafaxine XR (24 HR) 150 MG CAP.ER.24H PO SCH (08:35)
[2021-01-08] MEDS: predniSONE 20 MG TABLET PO SCH (08:35)
[2021-01-08] MEDS: Pantoprazole 40 MG VIAL IVP SCH (08:35)
[2021-01-08] MEDS: Potassium Chloride Elixir 20 MEQ/15 ML UDC PO SCH ×3 (08:36→20:08)
[2021-01-08] MEDS: Nicotine 14 MG PATCH.TD24 TD SCH (08:36)
[2021-01-08] MEDS: Chlorhexidine Rinse 15 ML MOUTHWASH MM SCH ×2 (08:36→20:08)
[2021-01-08] MEDS: levoFLOXacin 750 MG/150 ML 750 MG/150 ML BAG IVPB SCH (08:37)
[2021-01-08] MEDS: Insulin LISPRO 300 UNITS/3 ML VIAL SUBQ SCH ×4 (08:37→20:10)
[2021-01-08] MEDS: Furosemide 20 MG/2 ML VIAL IVP SCH ×2 (08:38→20:12)
[2021-01-08] MEDS: Insulin DETEMIR 100 UNIT/ML X5UNITS SUBQ SCH ×2 (08:38→20:10)
[2021-01-08] MEDS: Nystatin Cream 15 GM TUBE TP SCH ×2 (08:39→20:12)
[2021-01-08] MEDS: BREXPIPRAZOLE 3 MG PO SCH (08:39)
[2021-01-08 08:44] LABS: Lymphocytes # 4.6 K/mcL (0.6-4.6); Monocytes # 1.5 K/mcL (0.0-1.3); Neutrophils # 7.6 K/mcL (1.6-8.9); Platelet Estimate Increased (Normal)
[2021-01-08] MEDS ORDERED: Albumin 25% 12.5gm/50mL 12.5 GM/50 ML IV.SOLN IVPB ONE (10:59)
[2021-01-08] MEDS ORDERED: Furosemide 20 MG/2 ML VIAL IVP ONE (12:25)
[2021-01-08] MEDS ORDERED: Albumin 25% 12.5gm/50mL 12.5 GM/50 ML IV.SOLN IVPB SCH (16:00)
[2021-01-08 16:47] LABS: Bilirubin,Urine Negative (Negative); Blood,Urine Negative (Negative); Budding Yeast,Urine Many per hpf (None Seen); Clarity,Urine Clear (Clear); Color,Urine Colorless (Yellow); Glucose,Urine (UA) >=1000 mg/dL (Normal); Ketones,Urine Negative (Negative); Leukocyte Esterase,Urine Negative (Negative); Nitrite,Urine Negative (Negative); Protein,Urine Negative (Neg-Trace); RBC,Urine 50-100 per hpf (0-3); Specific Gravity,Urine 1.021 (1.010-1.025); Urobilinogen,Urine Normal (Normal); WBC,Urine 0-3 per hpf (0-3)
[2021-01-08] MEDS: lamoTRIgine 100 MG TABLET PO SCH (20:09)
[2021-01-09] MEDS: Ipratropium/Albuterol Neb 3 ML IH SCH ×6 (03:32→23:42)
[2021-01-09] MEDS: *HR* Heparin 5,000 UNIT/ML VIAL SQ SCH ×3 (05:24→20:21)
[2021-01-09 07:34] LABS: Hematocrit 33.6 % (35.3-44.9); Hemoglobin 10.3 g/dL (11.5-15.4); Mean Corpuscular HGB Conc 30.7 g/dL (31.6-35.5); Mean Corpuscular Hemoglobin 27.8 pg (28.0-33.3); Mean Corpuscular Volume 90.8 fL (83.0-100.0); Mean Platelet Volume 9.3 fL (9.4-12.4); Nucleated Red Blood Cells 0.3 /100 WBC (0); Platelet Count 500 K/mcL (140-400); Red Cell Distribution Width 14.3 % (11.5-14.5); White Blood Count 21.3 K/mcL (4.3-11.1)
[2021-01-09] MEDS: Budesonide/Formoterol 160/4.5 1 PUFF INH IH SCH ×2 (07:44→20:06)
[2021-01-09] MEDS: Insulin LISPRO 300 UNITS/3 ML VIAL SUBQ SCH ×4 (08:01→20:21)
[2021-01-09] MEDS: Insulin DETEMIR 100 UNIT/ML X5UNITS SUBQ SCH ×3 (08:01→20:20)
[2021-01-09] MEDS: Potassium Chloride Elixir 20 MEQ/15 ML UDC PO SCH ×3 (08:02→20:17)
[2021-01-09] MEDS: levoFLOXacin 750 MG/150 ML 750 MG/150 ML BAG IVPB SCH (08:04)
[2021-01-09] MEDS: Chlorhexidine Rinse 15 ML MOUTHWASH MM SCH ×2 (08:04→20:17)
[2021-01-09] MEDS: diazePAM 5 MG TABLET PO SCH ×2 (08:05→20:19)
[2021-01-09] MEDS: Venlafaxine XR (24 HR) 150 MG CAP.ER.24H PO SCH (08:05)
[2021-01-09] MEDS: Topiramate 25 MG CAP.SPRINK PO SCH (08:05)
[2021-01-09] MEDS: Loratadine 10 MG TABLET PO SCH (08:05)
[2021-01-09] MEDS: Pantoprazole 40 MG VIAL IVP SCH (08:06)
[2021-01-09] MEDS: Furosemide 20 MG/2 ML VIAL IVP SCH ×2 (08:06→20:16)
[2021-01-09] MEDS: Gabapentin 100 MG CAPSULE PO SCH ×3 (08:06→20:19)
[2021-01-09] MEDS: Lactobacillus 1 EACH CAP.SPRINK PO SCH ×2 (08:06→20:19)
[2021-01-09] MEDS: predniSONE 20 MG TABLET PO SCH (08:06)
[2021-01-09] MEDS: Nicotine 14 MG PATCH.TD24 TD SCH (08:07)
[2021-01-09] MEDS: BREXPIPRAZOLE 3 MG PO SCH (08:07)
[2021-01-09] MEDS: Nystatin Cream 15 GM TUBE TP SCH ×2 (08:07→21:00)
[2021-01-09] MEDS: tiZANidine 4 MG TABLET PO SCH ×2 (08:08→20:18)
[2021-01-09 08:24] LABS: Lymphocytes # 4.3 K/mcL (0.6-4.6); Monocytes # 2.1 K/mcL (0.0-1.3); Neutrophils # 11.9 K/mcL (1.6-8.9)
[2021-01-09 08:53] LABS: BUN/Creatinine Ratio 26 (6-26); Blood Urea Nitrogen 19 mg/dL (6-20); Calcium 9.6 mg/dL (8.6-10.3); Carbon Dioxide 34 mEq/L (23-29); Chloride 88 mEq/L (98-107); Glucose 332 mg/dL (70-105); Osmolality,Calculated 287 (280-300); Potassium 4.5 mEq/L (3.5-5.1); Sodium 131 mEq/L (136-145); eGFR For African Americans > 60 (> 60); eGFR For Non-African Americans > 60 (> 60)
[2021-01-09] MEDS ORDERED: Saline Nasal Spray 44 ML BOTTLE NS PRN (09:44)
[2021-01-09] MEDS ORDERED: Insulin LISPRO 300 UNITS/3 ML VIAL SUBQ ONE (16:00)
[2021-01-09] MEDS: lamoTRIgine 100 MG TABLET PO SCH (20:19)
[2021-01-10] MEDS: Ipratropium/Albuterol Neb 3 ML IH SCH ×6 (03:29→23:40)
[2021-01-10] MEDS: *HR* Heparin 5,000 UNIT/ML VIAL SQ SCH ×3 (05:25→20:19)
[2021-01-10] MEDS: Budesonide/Formoterol 160/4.5 1 PUFF INH IH SCH ×2 (07:31→20:05)
[2021-01-10] MEDS: Potassium Chloride Elixir 20 MEQ/15 ML UDC PO SCH ×3 (08:19→20:19)
[2021-01-10] MEDS: Venlafaxine XR (24 HR) 150 MG CAP.ER.24H PO SCH (08:20)
[2021-01-10] MEDS: tiZANidine 4 MG TABLET PO SCH ×2 (08:20→20:18)
[2021-01-10] MEDS: Furosemide 20 MG/2 ML VIAL IVP SCH ×2 (08:21→20:18)
[2021-01-10] MEDS: Lactobacillus 1 EACH CAP.SPRINK PO SCH ×2 (08:21→20:18)
[2021-01-10] MEDS: Loratadine 10 MG TABLET PO SCH (08:21)
[2021-01-10] MEDS: Gabapentin 100 MG CAPSULE PO SCH ×3 (08:21→20:18)
[2021-01-10] MEDS: diazePAM 5 MG TABLET PO SCH ×2 (08:21→20:18)
[2021-01-10] MEDS: Topiramate 25 MG CAP.SPRINK PO SCH (08:21)
[2021-01-10] MEDS: Chlorhexidine Rinse 15 ML MOUTHWASH MM SCH ×2 (08:22→20:19)
[2021-01-10] MEDS: Insulin LISPRO 300 UNITS/3 ML VIAL SUBQ SCH ×4 (08:22→20:18)
[2021-01-10] MEDS: Pantoprazole 40 MG VIAL IVP SCH (08:22)
[2021-01-10] MEDS: Nicotine 14 MG PATCH.TD24 TD SCH (08:23)
[2021-01-10] MEDS: levoFLOXacin 750 MG/150 ML 750 MG/150 ML BAG IVPB SCH (08:25)
[2021-01-10] MEDS: BREXPIPRAZOLE 3 MG PO SCH (08:26)
[2021-01-10] MEDS: Nystatin Cream 15 GM TUBE TP SCH ×2 (08:29→20:19)
[2021-01-10] MEDS: Insulin DETEMIR 100 UNIT/ML X5UNITS SUBQ SCH ×3 (08:29→20:17)
[2021-01-10] MEDS ORDERED: *HR* Metoprolol 5 MG/5 ML VIAL IVP ONE ×2 (08:47→08:50)
[2021-01-10 08:55] LABS: Hematocrit 35.7 % (35.3-44.9); Hemoglobin 11.5 g/dL (11.5-15.4); Mean Corpuscular HGB Conc 32.2 g/dL (31.6-35.5); Mean Corpuscular Volume 89.9 fL (83.0-100.0); Mean Platelet Volume 8.9 fL (9.4-12.4); Nucleated Red Blood Cells 0.1 /100 WBC (0); Platelet Count 493 K/mcL (140-400); Red Blood Count 3.97 M/mcL (3.82-4.97); Red Cell Distribution Width 14.3 % (11.5-14.5)
[2021-01-10] MEDS ORDERED: Insulin DETEMIR 100 UNIT/ML X5UNITS SUBQ SCH (09:00)
[2021-01-10 09:14] LABS: BUN/Creatinine Ratio 30 (6-26); Blood Urea Nitrogen 23 mg/dL (6-20); Calcium 9.6 mg/dL (8.6-10.3); Carbon Dioxide 33 mEq/L (23-29); Chloride 87 mEq/L (98-107); Glucose 329 mg/dL (70-105); Osmolality,Calculated 286 (280-300); Potassium 4.1 mEq/L (3.5-5.1); Sodium 130 mEq/L (136-145); eGFR For African Americans > 60 (> 60); eGFR For Non-African Americans > 60 (> 60)
[2021-01-10 10:08] LABS: Lymphocytes # 4.4 K/mcL (0.6-4.6); Monocytes # 1.5 K/mcL (0.0-1.3)
[2021-01-10 10:09] LABS: Platelet Estimate Increased (Normal)
[2021-01-10] MEDS ORDERED: Metoprolol XL (24 HR) Succ 25 MG TAB.ER.24H PO SCH (11:15)
[2021-01-10] MEDS ORDERED: Insulin LISPRO 300 UNITS/3 ML VIAL SUBQ ONE (12:15)
[2021-01-10] MEDS: lamoTRIgine 100 MG TABLET PO SCH (20:18)
[2021-01-11] MEDS: Ipratropium/Albuterol Neb 3 ML IH SCH ×3 (04:07→11:30)
[2021-01-11] MEDS: *HR* Heparin 5,000 UNIT/ML VIAL SQ SCH ×3 (05:20→20:50)
[2021-01-11] MEDS: Nicotine 14 MG PATCH.TD24 TD SCH (07:40)
[2021-01-11] MEDS: Loratadine 10 MG TABLET PO SCH (07:41)
[2021-01-11] MEDS: Topiramate 25 MG CAP.SPRINK PO SCH (07:41)
[2021-01-11] MEDS: Gabapentin 100 MG CAPSULE PO SCH ×3 (07:41→20:50)
[2021-01-11] MEDS: Pantoprazole 40 MG VIAL IVP SCH (07:41)
[2021-01-11] MEDS: tiZANidine 4 MG TABLET PO SCH ×2 (07:41→20:51)
[2021-01-11] MEDS: Venlafaxine XR (24 HR) 150 MG CAP.ER.24H PO SCH (07:41)
[2021-01-11] MEDS: Lactobacillus 1 EACH CAP.SPRINK PO SCH ×2 (07:41→20:55)
[2021-01-11] MEDS: diazePAM 5 MG TABLET PO SCH ×3 (07:41→20:55)
[2021-01-11] MEDS: Nystatin Cream 15 GM TUBE TP SCH ×2 (07:42→21:09)
[2021-01-11] MEDS: Insulin DETEMIR 100 UNIT/ML X5UNITS SUBQ SCH ×2 (07:42→20:48)
[2021-01-11] MEDS: BREXPIPRAZOLE 3 MG PO SCH (07:42)
[2021-01-11] MEDS: Potassium Chloride Elixir 20 MEQ/15 ML UDC PO SCH ×3 (07:42→20:51)
[2021-01-11] MEDS: Furosemide 20 MG/2 ML VIAL IVP SCH (07:42)
[2021-01-11] MEDS: Chlorhexidine Rinse 15 ML MOUTHWASH MM SCH ×2 (07:42→20:52)
[2021-01-11] MEDS: Insulin LISPRO 300 UNITS/3 ML VIAL SUBQ SCH ×6 (07:43→20:49)
[2021-01-11] MEDS: Budesonide/Formoterol 160/4.5 1 PUFF INH IH SCH ×2 (07:43→20:21)
[2021-01-11] MEDS: Metoprolol XL (24 HR) Succ 25 MG TAB.ER.24H PO SCH (13:30)
[2021-01-11] MEDS: Levalbuterol Neb 1.25 MG/3 ML IH SCH ×2 (15:45→20:20)
[2021-01-11] MEDS ORDERED: *HR* Metoprolol 5 MG/5 ML VIAL IVP PRN (17:09)
[2021-01-11] MEDS: lamoTRIgine 100 MG TABLET PO SCH (20:51)
[2021-01-11] MEDS: Melatonin 3 MG TABLET PO SCH (21:09)
[2021-01-12] MEDS: Levalbuterol Neb 1.25 MG/3 ML IH SCH ×4 (03:47→20:48)
[2021-01-12 05:17] LABS: Hematocrit 33.6 % (35.3-44.9); Hemoglobin 10.5 g/dL (11.5-15.4); Mean Corpuscular HGB Conc 31.3 g/dL (31.6-35.5); Mean Corpuscular Hemoglobin 28.3 pg (28.0-33.3); Mean Corpuscular Volume 90.6 fL (83.0-100.0); Mean Platelet Volume 8.9 fL (9.4-12.4); Platelet Count 440 K/mcL (140-400); Red Blood Count 3.71 M/mcL (3.82-4.97); Red Cell Distribution Width 14.6 % (11.5-14.5)
[2021-01-12 05:27] LABS: BUN/Creatinine Ratio 22 (6-26); Blood Urea Nitrogen 20 mg/dL (6-20); Calcium 9.1 mg/dL (8.6-10.3); Carbon Dioxide 30 mEq/L (23-29); Chloride 91 mEq/L (98-107); Glucose 385 mg/dL (70-105); Osmolality,Calculated 289 (280-300); Potassium 4.1 mEq/L (3.5-5.1); Sodium 130 mEq/L (136-145); eGFR For African Americans > 60 (> 60); eGFR For Non-African Americans > 60 (> 60)
[2021-01-12] MEDS: *HR* Heparin 5,000 UNIT/ML VIAL SQ SCH ×3 (06:23→20:51)
[2021-01-12 06:24] LABS: Eosinophils # 0.4 K/mcL (0.0-0.6); Lymphocytes # 4.7 K/mcL (0.6-4.6); Monocytes # 1.4 K/mcL (0.0-1.3); Neutrophils # 10.8 K/mcL (1.6-8.9); Reactive Lymphocytes Present (Not Present)
[2021-01-12] MEDS: Budesonide/Formoterol 160/4.5 1 PUFF INH IH SCH ×2 (07:45→20:49)
[2021-01-12] MEDS: Potassium Chloride Elixir 20 MEQ/15 ML UDC PO SCH ×3 (08:13→20:51)
[2021-01-12] MEDS: Gabapentin 100 MG CAPSULE PO SCH ×3 (08:13→20:51)
[2021-01-12] MEDS: Topiramate 25 MG CAP.SPRINK PO SCH (08:13)
[2021-01-12] MEDS: Loratadine 10 MG TABLET PO SCH (08:13)
[2021-01-12] MEDS: Lactobacillus 1 EACH CAP.SPRINK PO SCH ×2 (08:13→20:50)
[2021-01-12] MEDS: Chlorhexidine Rinse 15 ML MOUTHWASH MM SCH ×2 (08:13→20:49)
[2021-01-12] MEDS: diazePAM 5 MG TABLET PO SCH ×3 (08:14→20:49)
[2021-01-12] MEDS: Venlafaxine XR (24 HR) 150 MG CAP.ER.24H PO SCH (08:14)
[2021-01-12] MEDS: Metoprolol XL (24 HR) Succ 25 MG TAB.ER.24H PO SCH ×2 (08:14→20:50)
[2021-01-12] MEDS: Nicotine 14 MG PATCH.TD24 TD SCH (08:14)
[2021-01-12] MEDS: tiZANidine 4 MG TABLET PO SCH ×2 (08:14→20:50)
[2021-01-12] MEDS: BREXPIPRAZOLE 3 MG PO SCH (08:15)
[2021-01-12] MEDS: Insulin LISPRO 300 UNITS/3 ML VIAL SUBQ SCH ×7 (08:15→20:52)
[2021-01-12] MEDS: Nystatin Cream 15 GM TUBE TP SCH ×2 (08:15→20:52)
[2021-01-12] MEDS ORDERED: Venlafaxine XR (24 HR) 75 MG CAP.ER.24H PO SCH (09:00)
[2021-01-12] MEDS ORDERED: Insulin DETEMIR 100 UNIT/ML X5UNITS SUBQ SCH (09:00)
[2021-01-12] MEDS ORDERED: Insulin DETEMIR 100 UNIT/ML X5UNITS SUBQ ONE (10:42)
[2021-01-12] MEDS ORDERED: Insulin LISPRO 300 UNITS/3 ML VIAL SUBQ SCH (12:45)
[2021-01-12] MEDS: lamoTRIgine 100 MG TABLET PO SCH (20:50)
[2021-01-12] MEDS: Melatonin 3 MG TABLET PO SCH (20:51)
[2021-01-12] MEDS: Insulin DETEMIR 100 UNIT/ML X5UNITS SUBQ SCH (20:51)
[2021-01-13 02:03] LABS: Hematocrit 31.9 % (35.3-44.9); Hemoglobin 9.9 g/dL (11.5-15.4); Mean Corpuscular Hemoglobin 28.5 pg (28.0-33.3); Mean Corpuscular Volume 91.9 fL (83.0-100.0); Mean Platelet Volume 9.3 fL (9.4-12.4); Platelet Count 424 K/mcL (140-400); Red Blood Count 3.47 M/mcL (3.82-4.97); Red Cell Distribution Width 14.6 % (11.5-14.5); White Blood Count 17.4 K/mcL (4.3-11.1)
[2021-01-13 02:20] LABS: BUN/Creatinine Ratio 27 (6-26); Blood Urea Nitrogen 19 mg/dL (6-20); Calcium 9.1 mg/dL (8.6-10.3); Carbon Dioxide 26 mEq/L (23-29); Chloride 94 mEq/L (98-107); Glucose 303 mg/dL (70-105); Osmolality,Calculated 284 (280-300); Potassium 4.1 mEq/L (3.5-5.1); Sodium 130 mEq/L (136-145); eGFR For African Americans > 60 (> 60); eGFR For Non-African Americans > 60 (> 60)
[2021-01-13 02:26] LABS: Anisocytosis 1+ (Not Present); Lymphocytes # 2.1 K/mcL (0.6-4.6); Neutrophils # 13.2 K/mcL (1.6-8.9); Platelet Estimate Normal (Normal)
[2021-01-13] MEDS: Levalbuterol Neb 1.25 MG/3 ML IH SCH ×4 (04:03→21:00)
[2021-01-13] MEDS: *HR* Heparin 5,000 UNIT/ML VIAL SQ SCH ×3 (05:48→20:12)
[2021-01-13] MEDS: Potassium Chloride Elixir 20 MEQ/15 ML UDC PO SCH ×3 (08:40→20:10)
[2021-01-13] MEDS: *HR* OxyCODONE/APAP 5/325 TABLET PO PRN ×2 (08:40→16:59)
[2021-01-13] MEDS: Topiramate 25 MG CAP.SPRINK PO SCH (08:40)
[2021-01-13] MEDS: Lactobacillus 1 EACH CAP.SPRINK PO SCH ×2 (08:40→20:08)
[2021-01-13] MEDS: Gabapentin 100 MG CAPSULE PO SCH ×3 (08:41→20:10)
[2021-01-13] MEDS: Metoprolol XL (24 HR) Succ 25 MG TAB.ER.24H PO SCH ×2 (08:41→20:11)
[2021-01-13] MEDS: Loratadine 10 MG TABLET PO SCH (08:41)
[2021-01-13] MEDS: Venlafaxine XR (24 HR) 150 MG CAP.ER.24H PO SCH (08:41)
[2021-01-13] MEDS: diazePAM 5 MG TABLET PO SCH ×3 (08:41→20:11)
[2021-01-13] MEDS: tiZANidine 4 MG TABLET PO SCH ×2 (08:41→20:12)
[2021-01-13] MEDS: Chlorhexidine Rinse 15 ML MOUTHWASH MM SCH ×2 (08:42→20:08)
[2021-01-13] MEDS: Nicotine 14 MG PATCH.TD24 TD SCH (08:42)
[2021-01-13] MEDS: Nystatin Cream 15 GM TUBE TP SCH ×2 (08:43→20:10)
[2021-01-13] MEDS: BREXPIPRAZOLE 3 MG PO SCH (08:43)
[2021-01-13] MEDS: Insulin LISPRO 300 UNITS/3 ML VIAL SUBQ SCH ×7 (08:49→20:09)
[2021-01-13] MEDS ORDERED: Insulin DETEMIR 100 UNIT/ML X5UNITS SUBQ SCH (09:00)
[2021-01-13] MEDS: Budesonide/Formoterol 160/4.5 1 PUFF INH IH SCH ×2 (10:29→21:00)
[2021-01-13] MEDS: Insulin DETEMIR 100 UNIT/ML X5UNITS SUBQ SCH (20:09)
[2021-01-13] MEDS: lamoTRIgine 100 MG TABLET PO SCH (20:09)
[2021-01-13] MEDS: Melatonin 3 MG TABLET PO SCH (20:10)
[2021-01-14 02:36] LABS: Hematocrit 30.6 % (35.3-44.9); Hemoglobin 9.5 g/dL (11.5-15.4); Mean Corpuscular Hemoglobin 28.9 pg (28.0-33.3); Mean Platelet Volume 9.2 fL (9.4-12.4); Platelet Count 385 K/mcL (140-400); Red Blood Count 3.29 M/mcL (3.82-4.97); Red Cell Distribution Width 14.8 % (11.5-14.5); White Blood Count 12.8 K/mcL (4.3-11.1)
[2021-01-14 02:50] LABS: BUN/Creatinine Ratio 23 (6-26); Blood Urea Nitrogen 16 mg/dL (6-20); Calcium 9.5 mg/dL (8.6-10.3); Carbon Dioxide 28 mEq/L (23-29); Chloride 98 mEq/L (98-107); Glucose 426 mg/dL (70-105); Osmolality,Calculated 297 (280-300); Potassium 4.8 mEq/L (3.5-5.1); Sodium 134 mEq/L (136-145); eGFR For African Americans > 60 (> 60); eGFR For Non-African Americans > 60 (> 60)
[2021-01-14] MEDS: Levalbuterol Neb 1.25 MG/3 ML IH SCH ×4 (03:54→20:25)
[2021-01-14] MEDS: *HR* Heparin 5,000 UNIT/ML VIAL SQ SCH ×3 (04:29→21:34)
[2021-01-14] MEDS: *HR* OxyCODONE/APAP 5/325 TABLET PO PRN ×3 (04:29→21:36)
[2021-01-14 04:38] LABS: Lymphocytes # 3.2 K/mcL (0.6-4.6); Monocytes # 0.6 K/mcL (0.0-1.3); Neutrophils # 7.8 K/mcL (1.6-8.9); Platelet Estimate Normal (Normal); Reactive Lymphocytes Present (Not Present); Toxic Granulation Present (Not Present)
[2021-01-14] MEDS: Lactobacillus 1 EACH CAP.SPRINK PO SCH ×2 (08:34→21:35)
[2021-01-14] MEDS: Topiramate 25 MG CAP.SPRINK PO SCH (08:34)
[2021-01-14] MEDS: Metoprolol XL (24 HR) Succ 25 MG TAB.ER.24H PO SCH ×2 (08:34→21:36)
[2021-01-14] MEDS: Venlafaxine XR (24 HR) 150 MG CAP.ER.24H PO SCH (08:34)
[2021-01-14] MEDS: Loratadine 10 MG TABLET PO SCH (08:34)
[2021-01-14] MEDS: tiZANidine 4 MG TABLET PO SCH ×2 (08:35→21:36)
[2021-01-14] MEDS: BREXPIPRAZOLE 3 MG PO SCH (08:35)
[2021-01-14] MEDS: Gabapentin 100 MG CAPSULE PO SCH ×3 (08:35→21:35)
[2021-01-14] MEDS: Potassium Chloride Elixir 20 MEQ/15 ML UDC PO SCH ×3 (08:35→21:34)
[2021-01-14] MEDS: Chlorhexidine Rinse 15 ML MOUTHWASH MM SCH ×2 (08:35→21:34)
[2021-01-14] MEDS: diazePAM 5 MG TABLET PO SCH ×3 (08:35→21:36)
[2021-01-14] MEDS: Nicotine 14 MG PATCH.TD24 TD SCH (08:36)
[2021-01-14] MEDS: Nystatin Cream 15 GM TUBE TP SCH ×2 (08:37→22:24)
[2021-01-14] MEDS: Insulin DETEMIR 100 UNIT/ML X5UNITS SUBQ SCH ×2 (08:37→22:15)
[2021-01-14] MEDS: Insulin LISPRO 300 UNITS/3 ML VIAL SUBQ SCH ×7 (08:37→22:14)
[2021-01-14] MEDS: Budesonide/Formoterol 160/4.5 1 PUFF INH IH SCH ×2 (10:53→20:25)
[2021-01-14] MEDS: lamoTRIgine 100 MG TABLET PO SCH (21:35)
[2021-01-14] MEDS: Melatonin 3 MG TABLET PO SCH (21:35)
[2021-01-15] MEDS: Levalbuterol Neb 1.25 MG/3 ML IH SCH ×4 (03:24→19:43)
[2021-01-15] MEDS: *HR* OxyCODONE/APAP 5/325 TABLET PO PRN ×2 (06:43→14:24)
[2021-01-15] MEDS: *HR* Heparin 5,000 UNIT/ML VIAL SQ SCH ×3 (06:44→20:00)
[2021-01-15] MEDS: Loratadine 10 MG TABLET PO SCH (09:14)
[2021-01-15] MEDS: Topiramate 25 MG CAP.SPRINK PO SCH (09:15)
[2021-01-15] MEDS: Insulin LISPRO 300 UNITS/3 ML VIAL SUBQ SCH ×7 (09:15→20:18)
[2021-01-15] MEDS: Gabapentin 100 MG CAPSULE PO SCH ×3 (09:17→19:59)
[2021-01-15] MEDS: Metoprolol XL (24 HR) Succ 25 MG TAB.ER.24H PO SCH ×2 (09:17→19:59)
[2021-01-15] MEDS: tiZANidine 4 MG TABLET PO SCH ×2 (09:18→20:00)
[2021-01-15] MEDS: diazePAM 5 MG TABLET PO SCH ×3 (09:18→19:58)
[2021-01-15] MEDS: Nicotine 14 MG PATCH.TD24 TD SCH (09:19)
[2021-01-15] MEDS: Venlafaxine XR (24 HR) 150 MG CAP.ER.24H PO SCH (09:19)
[2021-01-15] MEDS: Chlorhexidine Rinse 15 ML MOUTHWASH MM SCH (09:19)
[2021-01-15] MEDS: Insulin DETEMIR 100 UNIT/ML X5UNITS SUBQ SCH ×2 (09:19→20:17)
[2021-01-15] MEDS: Lactobacillus 1 EACH CAP.SPRINK PO SCH ×2 (09:19→19:58)
[2021-01-15] MEDS: Nystatin Cream 15 GM TUBE TP SCH ×2 (09:21→20:17)
[2021-01-15] MEDS: Potassium Chloride Elixir 20 MEQ/15 ML UDC PO SCH (09:21)
[2021-01-15] MEDS: BREXPIPRAZOLE 3 MG PO SCH (09:22)
[2021-01-15] MEDS: Budesonide/Formoterol 160/4.5 1 PUFF INH IH SCH ×2 (10:23→19:42)
[2021-01-15] MEDS: Melatonin 3 MG TABLET PO SCH (20:00)
[2021-01-15] MEDS: lamoTRIgine 100 MG TABLET PO SCH (20:02)
[2021-01-16] MEDS: Levalbuterol Neb 1.25 MG/3 ML IH SCH ×4 (03:42→21:10)
[2021-01-16] MEDS: *HR* Heparin 5,000 UNIT/ML VIAL SQ SCH ×3 (04:28→22:59)
[2021-01-16] MEDS: *HR* OxyCODONE/APAP 5/325 TABLET PO PRN ×3 (04:29→20:04)
[2021-01-16] MEDS: Gabapentin 100 MG CAPSULE PO SCH ×3 (08:43→20:03)
[2021-01-16] MEDS: diazePAM 5 MG TABLET PO SCH ×3 (08:43→20:04)
[2021-01-16] MEDS: Topiramate 25 MG CAP.SPRINK PO SCH (08:44)
[2021-01-16] MEDS: Metoprolol XL (24 HR) Succ 25 MG TAB.ER.24H PO SCH ×2 (08:44→20:03)
[2021-01-16] MEDS: Loratadine 10 MG TABLET PO SCH (08:44)
[2021-01-16] MEDS: Venlafaxine XR (24 HR) 150 MG CAP.ER.24H PO SCH (08:45)
[2021-01-16] MEDS: Lactobacillus 1 EACH CAP.SPRINK PO SCH ×2 (08:45→20:03)
[2021-01-16] MEDS: Nicotine 14 MG PATCH.TD24 TD SCH (08:45)
[2021-01-16] MEDS: Insulin LISPRO 300 UNITS/3 ML VIAL SUBQ SCH ×7 (08:58→20:05)
[2021-01-16] MEDS: Nystatin Cream 15 GM TUBE TP SCH ×2 (09:03→23:02)
[2021-01-16] MEDS: tiZANidine 4 MG TABLET PO SCH ×2 (09:03→20:04)
[2021-01-16] MEDS: BREXPIPRAZOLE 3 MG PO SCH (09:03)
[2021-01-16] MEDS: Insulin DETEMIR 100 UNIT/ML X5UNITS SUBQ SCH ×2 (09:08→20:05)
[2021-01-16] MEDS: Budesonide/Formoterol 160/4.5 1 PUFF INH IH SCH ×2 (10:14→21:11)
[2021-01-16] MEDS: Melatonin 3 MG TABLET PO SCH (20:03)
[2021-01-16] MEDS: lamoTRIgine 100 MG TABLET PO SCH (20:04)
[2021-01-17] MEDS: Levalbuterol Neb 1.25 MG/3 ML IH SCH ×4 (03:45→19:39)
[2021-01-17] MEDS: *HR* Heparin 5,000 UNIT/ML VIAL SQ SCH ×3 (05:49→20:42)
[2021-01-17] MEDS: Topiramate 25 MG CAP.SPRINK PO SCH (09:10)
[2021-01-17] MEDS: tiZANidine 4 MG TABLET PO SCH ×2 (09:11→20:41)
[2021-01-17] MEDS: Lactobacillus 1 EACH CAP.SPRINK PO SCH ×2 (09:11→20:40)
[2021-01-17] MEDS: Gabapentin 100 MG CAPSULE PO SCH ×3 (09:11→20:41)
[2021-01-17] MEDS: Metoprolol XL (24 HR) Succ 25 MG TAB.ER.24H PO SCH ×2 (09:12→20:40)
[2021-01-17] MEDS: Loratadine 10 MG TABLET PO SCH (09:13)
[2021-01-17] MEDS: Venlafaxine XR (24 HR) 150 MG CAP.ER.24H PO SCH (09:13)
[2021-01-17] MEDS: diazePAM 5 MG TABLET PO SCH ×3 (09:14→20:41)
[2021-01-17] MEDS: Nicotine 14 MG PATCH.TD24 TD SCH (09:14)
[2021-01-17] MEDS: *HR* OxyCODONE/APAP 5/325 TABLET PO PRN ×2 (09:14→17:23)
[2021-01-17] MEDS: Insulin DETEMIR 100 UNIT/ML X5UNITS SUBQ SCH ×2 (09:14→20:42)
[2021-01-17] MEDS: Insulin LISPRO 300 UNITS/3 ML VIAL SUBQ SCH ×7 (09:18→20:43)
[2021-01-17] MEDS: BREXPIPRAZOLE 3 MG PO SCH (09:19)
[2021-01-17] MEDS: Nystatin Cream 15 GM TUBE TP SCH ×2 (09:35→20:42)
[2021-01-17] MEDS: Budesonide/Formoterol 160/4.5 1 PUFF INH IH SCH ×2 (09:39→19:40)
[2021-01-17 11:07] LABS: Hematocrit 31.6 % (35.3-44.9); Hemoglobin 9.7 g/dL (11.5-15.4); Mean Corpuscular HGB Conc 30.7 g/dL (31.6-35.5); Mean Corpuscular Hemoglobin 28.2 pg (28.0-33.3); Mean Corpuscular Volume 91.9 fL (83.0-100.0); Platelet Count 313 K/mcL (140-400); Red Blood Count 3.44 M/mcL (3.82-4.97); White Blood Count 8.6 K/mcL (4.3-11.1)
[2021-01-17 11:26] LABS: BUN/Creatinine Ratio 23 (6-26); Blood Urea Nitrogen 17 mg/dL (6-20); Calcium 9.1 mg/dL (8.6-10.3); Carbon Dioxide 26 mEq/L (23-29); Chloride 98 mEq/L (98-107); Glucose 322 mg/dL (70-105); Magnesium 1.6 mg/dL (1.6-2.6); Osmolality,Calculated 290 (280-300); Potassium 3.8 mEq/L (3.5-5.1); Sodium 133 mEq/L (136-145); eGFR For African Americans > 60 (> 60); eGFR For Non-African Americans > 60 (> 60)
[2021-01-17] MEDS: Melatonin 3 MG TABLET PO SCH (20:40)
[2021-01-17] MEDS: lamoTRIgine 100 MG TABLET PO SCH (20:41)
[2021-01-18] MEDS: Levalbuterol Neb 1.25 MG/3 ML IH SCH ×4 (03:37→19:57)
[2021-01-18] MEDS: *HR* OxyCODONE/APAP 5/325 TABLET PO PRN ×3 (04:12→20:14)
[2021-01-18] MEDS: *HR* Heparin 5,000 UNIT/ML VIAL SQ SCH ×3 (04:13→20:15)
[2021-01-18] MEDS: tiZANidine 4 MG TABLET PO SCH ×2 (08:39→20:14)
[2021-01-18] MEDS: Metoprolol XL (24 HR) Succ 25 MG TAB.ER.24H PO SCH ×2 (08:39→20:13)
[2021-01-18] MEDS: Loratadine 10 MG TABLET PO SCH (08:39)
[2021-01-18] MEDS: diazePAM 5 MG TABLET PO SCH ×3 (08:39→20:14)
[2021-01-18] MEDS: Gabapentin 100 MG CAPSULE PO SCH ×3 (08:39→20:13)
[2021-01-18] MEDS: Insulin LISPRO 300 UNITS/3 ML VIAL SUBQ SCH ×7 (08:40→20:15)
[2021-01-18] MEDS: Venlafaxine XR (24 HR) 150 MG CAP.ER.24H PO SCH (08:40)
[2021-01-18] MEDS: Insulin DETEMIR 100 UNIT/ML X5UNITS SUBQ SCH ×2 (08:40→20:14)
[2021-01-18] MEDS: Lactobacillus 1 EACH CAP.SPRINK PO SCH ×2 (08:40→20:13)
[2021-01-18] MEDS: Topiramate 25 MG CAP.SPRINK PO SCH (08:40)
[2021-01-18] MEDS: Nicotine 14 MG PATCH.TD24 TD SCH (08:41)
[2021-01-18] MEDS: BREXPIPRAZOLE 3 MG PO SCH (08:42)
[2021-01-18] MEDS: Nystatin Cream 15 GM TUBE TP SCH ×2 (08:59→20:15)
[2021-01-18] MEDS: Budesonide/Formoterol 160/4.5 1 PUFF INH IH SCH ×2 (10:02→19:57)
[2021-01-18] MEDS: lamoTRIgine 100 MG TABLET PO SCH (20:13)
[2021-01-18] MEDS: Melatonin 3 MG TABLET PO SCH (20:14)
[2021-01-19] MEDS: Levalbuterol Neb 1.25 MG/3 ML IH SCH ×2 (03:27→10:18)
[2021-01-19] MEDS: *HR* Heparin 5,000 UNIT/ML VIAL SQ SCH (05:42)
[2021-01-19 06:55] VITALS: BP 127/89; PULSE 82; TEMP 97.8; O2SAT 98
[2021-01-19] MEDS: Insulin LISPRO 300 UNITS/3 ML VIAL SUBQ SCH ×2 (07:11→07:36)
[2021-01-19] MEDS: *HR* OxyCODONE/APAP 5/325 TABLET PO PRN (07:33)
[2021-01-19] MEDS: Topiramate 25 MG CAP.SPRINK PO SCH (07:34)
[2021-01-19] MEDS: Venlafaxine XR (24 HR) 150 MG CAP.ER.24H PO SCH (07:34)
[2021-01-19] MEDS: tiZANidine 4 MG TABLET PO SCH (07:34)
[2021-01-19] MEDS: Lactobacillus 1 EACH CAP.SPRINK PO SCH (07:34)
[2021-01-19] MEDS: Loratadine 10 MG TABLET PO SCH (07:34)
[2021-01-19] MEDS: diazePAM 5 MG TABLET PO SCH (07:34)
[2021-01-19] MEDS: Gabapentin 100 MG CAPSULE PO SCH (07:34)
[2021-01-19] MEDS: Insulin DETEMIR 100 UNIT/ML X5UNITS SUBQ SCH (07:34)
[2021-01-19] MEDS: Nicotine 14 MG PATCH.TD24 TD SCH (07:35)
[2021-01-19] MEDS: Metoprolol XL (24 HR) Succ 25 MG TAB.ER.24H PO SCH (07:35)
[2021-01-19] MEDS: Nystatin Cream 15 GM TUBE TP SCH (07:37)
[2021-01-19] MEDS: BREXPIPRAZOLE 3 MG PO SCH (07:37)
[2021-01-19] MEDS: Budesonide/Formoterol 160/4.5 1 PUFF INH IH SCH (10:18)
== END 2021-01-19 11:06 | disposition home or self-care (01) | DRG 720 ==
LOC: SUATTDRO → EMEROOARM 19:31 → 3NENU 19:31 → SUATTDRO 23:38 → 3NENU 12-31 00:25 → 2NNU 12-31 05:38 → 2ANU 01-13 00:38
PROVIDERS: ADMIT Internal Medicine; ATTEND Internal Medicine

== ENCOUNTER 2021-02-24 13:31 | Inpatient (IN) ==
[2021-02-24] MEDS ORDERED: 0.9 % Sodium Chloride 1,000 ML IVC ONE (14:02)
[2021-02-24] MEDS ORDERED: 0.9 % Sodium Chloride 1,000 ML ONE (14:04)
[2021-02-24 14:39] LABS: Alanine Aminotransferase 31 Units/L (7-52); Albumin 3.5 g/dL (3.5-5.7); Albumin/Globulin Ratio 0.9 (1.1-2.2); Alkaline Phosphatase 117 Units/L (34-104); Aspartate Amino Transferase 30 Units/L (13-39); BUN/Creatinine Ratio 21 (6-26); Bilirubin,Direct 0.1 mg/dL (0.0-0.2); Bilirubin,Indirect 0.2 mg/dL (0.0-1.0); Bilirubin,Total 0.3 mg/dL (0.3-1.0); Blood Urea Nitrogen 37 mg/dL (6-20); Calcium 8.8 mg/dL (8.6-10.3); Carbon Dioxide 22 mEq/L (23-29); Chloride 95 mEq/L (98-107); Globulin 3.7 g/dL (2.4-3.5); Glucose 108 mg/dL (70-105); Osmolality,Calculated 277 (280-300); Potassium 2.9 mEq/L (3.5-5.1); Sodium 129 mEq/L (136-145); Total Protein 7.2 g/dL (6.4-8.9); Troponin I < 0.03 ng/mL (< 0.04); eGFR For African Americans 38 (> 60); eGFR For Non-African Americans 32 (> 60)
[2021-02-24 14:42] LABS: Hematocrit 36.1 % (35.3-44.9); Hemoglobin 11.8 g/dL (11.5-15.4); Mean Corpuscular HGB Conc 32.7 g/dL (31.6-35.5); Mean Corpuscular Hemoglobin 28.2 pg (28.0-33.3); Mean Corpuscular Volume 86.4 fL (83.0-100.0); Mean Platelet Volume 9.5 fL (9.4-12.4); Platelet Count 371 K/mcL (140-400); Red Blood Count 4.18 M/mcL (3.82-4.97); Red Cell Distribution Width 14.5 % (11.5-14.5); White Blood Count 10.3 K/mcL (4.3-11.1)
[2021-02-24] MEDS ORDERED: Potassium Chloride Elixir 20 MEQ/15 ML UDC PO ONE ×2 (14:59→18:39)
[2021-02-24 15:04] LABS: Influenza A PCR Negative (Negative); Influenza B PCR Negative (Negative); Resp. Syncytial Virus PCR Negative (Negative)
[2021-02-24 15:06] LABS: SARS-CoV-2 by PCR (In House) Positive (Negative)
[2021-02-24 15:30] LABS: Bilirubin,Urine Negative (Negative); Blood,Urine Negative (Negative); Clarity,Urine Clear (Clear); Color,Urine Yellow (Yellow); Glucose,Urine (UA) Normal (Normal); Ketones,Urine Negative (Negative); Leukocyte Esterase,Urine Negative (Negative); Nitrite,Urine Negative (Negative); Protein,Urine Trace mg/dL (Neg-Trace); Specific Gravity,Urine 1.016 (1.010-1.025); Urobilinogen,Urine Normal (Normal)
[2021-02-24] MEDS ORDERED: Ringers Solution, Lactated 500 ML IVC ONE (16:56)
[2021-02-24] MEDS ORDERED: Vancomycin 1,250 MG/262.5 ML IV.SOLN IVPB ONE (16:58)
[2021-02-24] MEDS ORDERED: Cefepime HCl 2,000 MG in 0.9 % Sodium Chloride Mini Bag 100 ML IVPB STA (16:58)
[2021-02-24] MEDS ORDERED: MetroNIDAZOLE 500 MG/100 ML 500 MG/100 ML BAG IVPB ONE (17:11)
[2021-02-24] MEDS ORDERED: *HR* OxyCODONE/APAP 5/325 TABLET PO ONE (18:13)
[2021-02-24] MEDS ORDERED: Ondansetron ODT 4 MG TAB.RAPDIS SL PRN (18:18)
[2021-02-24] MEDS ORDERED: Naloxone 0.4 MG/ML INJ IVP PRN (18:18)
[2021-02-24] MEDS ORDERED: Ringers Solution, Lactated 500 ML IV ONE (18:45)
[2021-02-24] MEDS ORDERED: Ringers Solution, Lactated 1,000 ML IVC SCH (18:45)
[2021-02-24] MEDS ORDERED: tiZANidine 4 MG TABLET PO PRN (18:49)
[2021-02-24] MEDS ORDERED: *HR* Dextrose 50 % in Water (Syg) 50 ML SYRINGE IVP PRN (18:52)
[2021-02-24] MEDS ORDERED: Dextrose Gel 15 GM/37.5 ML TUBE PO PRN ×2 (18:52)
[2021-02-24] MEDS ORDERED: D5% in Water 1,000 ML IVC PRN (18:52)
[2021-02-24] MEDS ORDERED: Melatonin 3 MG TABLET PO PRN (21:00)
[2021-02-24] MEDS ORDERED: Insulin LISPRO 300 UNITS/3 ML VIAL SUBQ SCH (21:00)
[2021-02-24 21:42] LABS: C-Reactive Protein 121 mg/L (Less than 10)
[2021-02-24] MEDS: Metoprolol XL (24 HR) Succ 25 MG TAB.ER.24H PO SCH (22:04)
[2021-02-24] MEDS: Azithromycin 250 MG TABLET PO SCH (22:26)
[2021-02-24] MEDS: Gabapentin 100 MG CAPSULE PO SCH (22:26)
[2021-02-24] MEDS: metroNIDAZOLE 500 MG TABLET PO SCH (22:26)
[2021-02-24] MEDS: Acetaminophen 325 MG TABLET PO PRN (22:26)
[2021-02-24] MEDS: lamoTRIgine 100 MG TABLET PO SCH (22:27)
[2021-02-24] MEDS: *HR* Heparin 5,000 UNIT/ML VIAL SQ SCH (22:28)
[2021-02-25] MEDS: Cefepime HCl 2,000 MG in 0.9 % Sodium Chloride Mini Bag 100 ML IVPB SCH ×3 (00:25→16:20)
[2021-02-25] MEDS: Albumin Human 5% 12.5 GM/250 ML IV.SOLN IVC SCH ×2 (01:53→05:11)
[2021-02-25] MEDS ORDERED: Albumin Human 5% 12.5 GM/250 ML IV.SOLN IVC SCH (02:00)
[2021-02-25 03:03] LABS: Hematocrit 30.5 % (35.3-44.9); Mean Corpuscular HGB Conc 30.5 g/dL (31.6-35.5); Mean Corpuscular Hemoglobin 27.5 pg (28.0-33.3); Mean Corpuscular Volume 90.2 fL (83.0-100.0); Mean Platelet Volume 9.5 fL (9.4-12.4); Platelet Count 346 K/mcL (140-400); Red Blood Count 3.38 M/mcL (3.82-4.97); Red Cell Distribution Width 14.7 % (11.5-14.5)
[2021-02-25 03:11] LABS: Hemoglobin 9.3 g/dL (11.5-15.4); White Blood Count 4.8 K/mcL (4.3-11.1)
[2021-02-25] MEDS ORDERED: Insulin LISPRO 300 UNITS/3 ML VIAL SUBQ ONE (03:27)
[2021-02-25 03:42] LABS: BUN/Creatinine Ratio 25 (6-26); Blood Urea Nitrogen 27 mg/dL (6-20); Calcium 7.7 mg/dL (8.6-10.3); Carbon Dioxide 22 mEq/L (23-29); Chloride 105 mEq/L (98-107); Glucose 621 mg/dL (70-105); Osmolality,Calculated 304 (280-300); Potassium 4.2 mEq/L (3.5-5.1); Sodium 130 mEq/L (136-145); eGFR For African Americans > 60 (> 60); eGFR For Non-African Americans 55 (> 60)
[2021-02-25 03:58] LABS: Lymphocytes # 0.5 K/mcL (0.6-4.6); Monocytes # 0.2 K/mcL (0.0-1.3); Neutrophils # 3.5 K/mcL (1.6-8.9); Platelet Estimate Normal (Normal)
[2021-02-25] MEDS: *HR* Heparin 5,000 UNIT/ML VIAL SQ SCH ×2 (05:10→13:25)
[2021-02-25] MEDS ORDERED: Ringers Solution, Lactated 1,000 ML IVC SCH (06:30)
[2021-02-25] MEDS: Topiramate 25 MG CAP.SPRINK PO SCH (08:16)
[2021-02-25] MEDS: metroNIDAZOLE 500 MG TABLET PO SCH ×3 (08:16→20:41)
[2021-02-25] MEDS: Metoprolol XL (24 HR) Succ 25 MG TAB.ER.24H PO SCH (08:16)
[2021-02-25] MEDS: Gabapentin 100 MG CAPSULE PO SCH ×3 (08:16→20:40)
[2021-02-25] MEDS: Insulin LISPRO 300 UNITS/3 ML VIAL SUBQ SCH ×5 (08:17→20:41)
[2021-02-25] MEDS: *HR* OxyCODONE/APAP 5/325 TABLET PO PRN ×2 (08:37→17:40)
[2021-02-25] MEDS ORDERED: Hydrocortisone Sodium Succ 100 MG/2 ML VIAL IVP ONE (09:29)
[2021-02-25] MEDS ORDERED: Remdesivir 200 MG in 0.9 % Sodium Chloride 100 ML IVPB ONE (09:29)
[2021-02-25] MEDS ORDERED: Norepinephrine 4 MG/254 ML IV.SOLN IVC SCH (09:30)
[2021-02-25] MEDS ORDERED: Furosemide 20 MG/2 ML VIAL IVP ONE (11:34)
[2021-02-25] MEDS: Acetaminophen 325 MG TABLET PO PRN (13:24)
[2021-02-25] MEDS: Benzonatate 100 MG CAPSULE PO PRN (16:38)
[2021-02-25] MEDS: Azithromycin 250 MG TABLET PO SCH (17:30)
[2021-02-25] MEDS: Hydrocortisone Sodium Succ 100 MG/2 ML VIAL IVP SCH (17:31)
[2021-02-25] MEDS: lamoTRIgine 100 MG TABLET PO SCH (20:41)
[2021-02-25] MEDS ORDERED: Insulin DETEMIR 100 UNIT/ML X5UNITS SUBQ SCH (21:00)
[2021-02-26] MEDS: *HR* Heparin 5,000 UNIT/ML VIAL SQ SCH ×4 (00:12→21:05)
[2021-02-26] MEDS: Hydrocortisone Sodium Succ 100 MG/2 ML VIAL IVP SCH ×3 (00:13→19:49)
[2021-02-26] MEDS: Cefepime HCl 2,000 MG in 0.9 % Sodium Chloride Mini Bag 100 ML IVPB SCH ×3 (00:15→18:00)
[2021-02-26] MEDS: Benzonatate 100 MG CAPSULE PO PRN ×3 (00:25→18:00)
[2021-02-26] MEDS ORDERED: Isovue-370 500 ML BOTTLE IVP ONE (01:27)
[2021-02-26 02:14] LABS: Hemoglobin 9.1 g/dL (11.5-15.4); Mean Corpuscular HGB Conc 31.4 g/dL (31.6-35.5); Mean Corpuscular Hemoglobin 28.3 pg (28.0-33.3); Mean Corpuscular Volume 90.3 fL (83.0-100.0); Mean Platelet Volume 9.4 fL (9.4-12.4); Platelet Count 430 K/mcL (140-400); Red Blood Count 3.21 M/mcL (3.82-4.97); Red Cell Distribution Width 14.8 % (11.5-14.5)
[2021-02-26 02:21] LABS: White Blood Count 11.2 K/mcL (4.3-11.1)
[2021-02-26 02:35] LABS: Alanine Aminotransferase 22 Units/L (7-52); Albumin 3.2 g/dL (3.5-5.7); Albumin/Globulin Ratio 1.3 (1.1-2.2); Alkaline Phosphatase 106 Units/L (34-104); Aspartate Amino Transferase 14 Units/L (13-39); BUN/Creatinine Ratio 18 (6-26); Bilirubin,Direct 0.1 mg/dL (0.0-0.2); Bilirubin,Indirect 0.1 mg/dL (0.0-1.0); Bilirubin,Total 0.2 mg/dL (0.3-1.0); Blood Urea Nitrogen 16 mg/dL (6-20); Calcium 8.2 mg/dL (8.6-10.3); Carbon Dioxide 24 mEq/L (23-29); Chloride 104 mEq/L (98-107); Globulin 2.5 g/dL (2.4-3.5); Glucose 565 mg/dL (70-105); Osmolality,Calculated 307 (280-300); Potassium 3.3 mEq/L (3.5-5.1); Sodium 135 mEq/L (136-145); Total Protein 5.7 g/dL (6.4-8.9); eGFR For African Americans > 60 (> 60); eGFR For Non-African Americans > 60 (> 60)
[2021-02-26] MEDS ORDERED: Perflutren Lipid Microsphere 1.3 ML in 0.9 % Sodium Chloride 8.7 ML IVP PRN (04:55)
[2021-02-26 05:26] LABS: Chol/HDL Ratio 7.1 (0-4.9); Cholesterol 192 mg/dL (< 200); HDL Cholesterol 27 mg/dL (40-59); Triglycerides 449 mg/dL (< 150)
[2021-02-26 05:38] LABS: LDL Cholesterol,Direct 136 mg/dL (75-193)
[2021-02-26 05:40] LABS: Prothrombin Time 10.9 Seconds (9.4-12.1)
[2021-02-26] MEDS ORDERED: Insulin LISPRO 300 UNITS/3 ML VIAL SUBQ SCH (06:00)
[2021-02-26 10:05] LABS: Estimated Average Glucose 240 mg/dl
[2021-02-26 10:39] LABS: C-Reactive Protein 34 mg/L (Less than 10)
[2021-02-26] MEDS: Insulin LISPRO 300 UNITS/3 ML VIAL SUBQ SCH ×7 (11:11→21:05)
[2021-02-26] MEDS: Insulin DETEMIR 100 UNIT/ML X5UNITS SUBQ SCH ×2 (11:12→21:59)
[2021-02-26] MEDS: Remdesivir 100 MG in 0.9 % Sodium Chloride 100 ML IVPB SCH (11:13)
[2021-02-26] MEDS: metroNIDAZOLE 500 MG TABLET PO SCH ×3 (11:24→21:58)
[2021-02-26] MEDS: Topiramate 25 MG CAP.SPRINK PO SCH (11:25)
[2021-02-26] MEDS: Gabapentin 100 MG CAPSULE PO SCH ×3 (11:25→21:58)
[2021-02-26] MEDS: Azithromycin 250 MG TABLET PO SCH (19:50)
[2021-02-26] MEDS: *HR* OxyCODONE/APAP 5/325 TABLET PO PRN (19:52)
[2021-02-26] MEDS: lamoTRIgine 100 MG TABLET PO SCH (21:04)
[2021-02-27] MEDS: Acetaminophen 325 MG TABLET PO PRN (00:01)
[2021-02-27] MEDS: Hydrocortisone Sodium Succ 100 MG/2 ML VIAL IVP SCH ×4 (00:01→23:43)
[2021-02-27] MEDS ORDERED: GuaiFENesin Liq 200 MG/10 ML UDC PO PRN (00:50)
[2021-02-27] MEDS: Benzonatate 100 MG CAPSULE PO PRN ×4 (02:00→23:42)
[2021-02-27 04:06] LABS: Hematocrit 28.4 % (35.3-44.9); Hemoglobin 8.9 g/dL (11.5-15.4); Mean Corpuscular HGB Conc 31.3 g/dL (31.6-35.5); Mean Corpuscular Hemoglobin 27.9 pg (28.0-33.3); Mean Platelet Volume 9.1 fL (9.4-12.4); Platelet Count 437 K/mcL (140-400); Red Blood Count 3.19 M/mcL (3.82-4.97); Red Cell Distribution Width 14.7 % (11.5-14.5); White Blood Count 10.1 K/mcL (4.3-11.1)
[2021-02-27 04:21] LABS: Alanine Aminotransferase 20 Units/L (7-52); Albumin/Globulin Ratio 1.2 (1.1-2.2); Alkaline Phosphatase 79 Units/L (34-104); Aspartate Amino Transferase 11 Units/L (13-39); BUN/Creatinine Ratio 27 (6-26); Bilirubin,Direct 0.1 mg/dL (0.0-0.2); Bilirubin,Indirect 0.2 mg/dL (0.0-1.0); Bilirubin,Total 0.3 mg/dL (0.3-1.0); Blood Urea Nitrogen 20 mg/dL (6-20); C-Reactive Protein 24 mg/L (Less than 10); Calcium 8.7 mg/dL (8.6-10.3); Carbon Dioxide 32 mEq/L (23-29); Chloride 105 mEq/L (98-107); Chol/HDL Ratio 4.3 (0-4.9); Cholesterol 154 mg/dL (< 200); Globulin 2.6 g/dL (2.4-3.5); Glucose 284 mg/dL (70-105); HDL Cholesterol 36 mg/dL (40-59); LDL Cholesterol,Calculated 84 mg/dL (< 100); Osmolality,Calculated 295 (280-300); Potassium 3.1 mEq/L (3.5-5.1); Sodium 136 mEq/L (136-145); Total Protein 5.6 g/dL (6.4-8.9); Triglycerides 172 mg/dL (< 150); eGFR For African Americans > 60 (> 60); eGFR For Non-African Americans > 60 (> 60)
[2021-02-27 04:23] LABS: INR 1.1; Prothrombin Time 12.1 Seconds (9.4-12.1)
[2021-02-27] MEDS: *HR* Heparin 5,000 UNIT/ML VIAL SQ SCH ×3 (04:53→20:44)
[2021-02-27 05:23] LABS: Estimated Average Glucose 246 mg/dl; Hemoglobin A1C 10.2 %
[2021-02-27] MEDS ORDERED: diazePAM 10 MG TABLET PO PRN (10:26)
[2021-02-27] MEDS: Insulin LISPRO 300 UNITS/3 ML VIAL SUBQ SCH ×7 (11:29→20:44)
[2021-02-27] MEDS: Insulin DETEMIR 100 UNIT/ML X5UNITS SUBQ SCH ×2 (11:31→20:44)
[2021-02-27] MEDS: Furosemide 40 MG/4 ML VIAL IVP SCH (11:33)
[2021-02-27] MEDS: Gabapentin 100 MG CAPSULE PO SCH ×3 (11:35→20:44)
[2021-02-27] MEDS: metroNIDAZOLE 500 MG TABLET PO SCH ×3 (11:36→20:43)
[2021-02-27] MEDS: Topiramate 25 MG CAP.SPRINK PO SCH (11:37)
[2021-02-27] MEDS: Cefepime HCl 2,000 MG in 0.9 % Sodium Chloride Mini Bag 100 ML IVPB SCH ×4 (11:38→23:42)
[2021-02-27] MEDS: Remdesivir 100 MG in 0.9 % Sodium Chloride 100 ML IVPB SCH (11:39)
[2021-02-27] MEDS: Azithromycin 250 MG TABLET PO SCH (20:42)
[2021-02-27] MEDS: *HR* OxyCODONE/APAP 5/325 TABLET PO PRN (20:43)
[2021-02-27] MEDS: lamoTRIgine 100 MG TABLET PO SCH (20:44)
[2021-02-27] MEDS ORDERED: diazePAM 5 MG TABLET PO PRN (22:30)
[2021-02-28] MEDS: *HR* Heparin 5,000 UNIT/ML VIAL SQ SCH ×2 (05:16→13:20)
[2021-02-28 06:10] LABS: Albumin/Globulin Ratio 1.2 (1.1-2.2); Bilirubin,Direct 0.1 mg/dL (0.0-0.2); Bilirubin,Indirect 0.2 mg/dL (0.0-1.0); Bilirubin,Total 0.3 mg/dL (0.3-1.0); Globulin 2.5 g/dL (2.4-3.5); Total Protein 5.5 g/dL (6.4-8.9)
[2021-02-28 06:54] VITALS: BP 133/62; TEMP 97.6
[2021-02-28] MEDS: Cefepime HCl 2,000 MG in 0.9 % Sodium Chloride Mini Bag 100 ML IVPB SCH (08:25)
[2021-02-28] MEDS: Gabapentin 100 MG CAPSULE PO SCH (08:26)
[2021-02-28] MEDS: Topiramate 25 MG CAP.SPRINK PO SCH (08:26)
[2021-02-28] MEDS: Furosemide 40 MG/4 ML VIAL IVP SCH (08:27)
[2021-02-28] MEDS: Insulin DETEMIR 100 UNIT/ML X5UNITS SUBQ SCH (08:27)
[2021-02-28] MEDS: metroNIDAZOLE 500 MG TABLET PO SCH (08:27)
[2021-02-28] MEDS: Insulin LISPRO 300 UNITS/3 ML VIAL SUBQ SCH ×4 (08:28→11:05)
[2021-02-28] MEDS: Remdesivir 100 MG in 0.9 % Sodium Chloride 100 ML IVPB SCH (08:40)
[2021-02-28] MEDS ORDERED: Loratadine 10 MG TABLET PO SCH (09:00)
[2021-02-28] MEDS ORDERED: Hydrocortisone 10 MG TABLET PO SCH (09:00)
[2021-02-28] MEDS ORDERED: Venlafaxine XR (24 HR) 150 MG CAP.ER.24H PO SCH (09:00)
[2021-02-28 09:28] LABS: BUN/Creatinine Ratio 32 (6-26); Blood Urea Nitrogen 19 mg/dL (6-20); Calcium 9.1 mg/dL (8.6-10.3); Carbon Dioxide 35 mEq/L (23-29); Chloride 97 mEq/L (98-107); Glucose 232 mg/dL (70-105); Osmolality,Calculated 294 (280-300); Potassium 3.2 mEq/L (3.5-5.1); Sodium 137 mEq/L (136-145); eGFR For African Americans > 60 (> 60); eGFR For Non-African Americans > 60 (> 60)
[2021-02-28 09:33] VITALS: PULSE 59; O2SAT 98
== END 2021-02-28 12:20 | disposition home health service (06) | DRG 720 ==
LOC: EMEROOARM 13:31 → 2NNU 13:31 → SUATTDRO 17:18 → 2NNU 19:50
PROVIDERS: ADMIT Internal Medicine; ATTEND Internal Medicine